=== PATIENT | male | born 1945 | race Caucasian/White ===

== ENCOUNTER → 2016-12-19 | Outpatient (CLI) | payer MEDICARE ==
[2016-12-19 12:19] LABS: ADD MANUAL DIFFER NO; BASO % 0.6 % (0.0-1.0); DIFF SLIDE NUMBER 200; EOS # 0.1 10^3/uL (0.0-0.50); EOS % 1.6 % (0.0-3.0); IMMATURE GRANULOCYTE % 0.4 % (0-0); LYMPH # 1.5 10^3/uL (1.5-4.5); LYMPH % 21.1 % (24.0-44.0); MEAN CORPUSCULAR HEMOGLOBIN 30.5 pg (27.0-33.0); MEAN CORPUSCULAR HGB CONC 33.8 g/dl (32.0-36.5); MEAN CORPUSCULAR VOLUME 90.3 fl (80.0-96.0); MONO # 0.6 10^3/uL (0.0-0.8); MONO % 8.4 % (0.0-5.0); NEUTROPHILS # 4.8 10^3/uL (1.8-7.7); NEUTROPHILS % 67.9 % (36.0-66.0); PLATELET COUNT, AUTOMATED 270 10^3/uL (150-450); RED CELL DISTRIBUTION WIDTH 13.1 % (11.5-14.5); WHITE BLOOD COUNT 7.1 10^3/uL (4.0-10.0)
[2016-12-19 12:49] LABS: ERYTHROCYTE SEDIMENTATION RATE 15 mm/hr (0-20)
[2016-12-19 13:32] LABS: VITAMIN B12 LEVEL 224 PG/ML (247-911)
[2016-12-19 13:33] LABS: FOLATE 16.9 NG/ML (>5.4)
[2016-12-19 15:48] LABS: ALBUMIN/GLOBULIN RATIO 1.29 (1.00-1.93); ALKALINE PHOSPHATASE 88 U/L (45-117); ALT/SGPT 22 U/L (12-78); ANION GAP 12 MEQ/L (8-16); AST/SGOT 9 U/L (15-37); BILIRUBIN,TOTAL 0.5 MG/DL (0.2-1.0); BLOOD UREA NITROGEN 15 MG/DL (7-18); CALCIUM LEVEL 9.2 MG/DL (8.8-10.2); CARBON DIOXIDE LEVEL 25 MEQ/L (21-32); CHLORIDE LEVEL 102 MEQ/L (98-107); CREATININE FOR GFR 1.07 MG/DL (0.70-1.30); GLOMERULAR FILTRATION RATE > 60.0 (>42); GLUCOSE, FASTING 82 MG/DL (83-110); POTASSIUM SERUM 4.1 MEQ/L (3.5-5.1); SODIUM LEVEL 139 MEQ/L (136-145); TOTAL PROTEIN 7.1 GM/DL (6.4-8.2)
[2016-12-20 08:58] LABS: ALBUMIN 4.15 GM/DL (3.29-5.55); ALBUMIN % 58.5 % (55.8-66.1)
[2016-12-20 08:59] LABS: GAMMA GLOBULIN % 10.3 % (11.1-18.8)
[2016-12-23 00:08] LABS: VITAMIN E LEVEL 10.2 mg/L (5.3-17.5)
== END ==
LOC: M LAB 10:35
PROVIDERS: ATTEND Psychiatry & Neurology Neurology
DX: G62.9 Polyneuropathy, unspecified (principal)

== ENCOUNTER 2017-03-27 07:44 | Day surgery (SDC) | payer MEDICARE ==
[2017-03-27] MEDS ORDERED: PROPOFOL 200 MG/20 ML VIAL As Ordered (08:00)
[2017-03-27] MEDS: NS 1,000 ML IV (08:00)
[2017-03-27] MEDS ORDERED: LIDOCAINE 2% INJ 100 MG/5 ML SDV (FOR ANES.) As Ordered (08:31)
[2017-03-27 11:40] LABS: BEDSIDE GLUCOSE 79 MG/DL (83-110)
== END 2017-03-27 09:14 | disposition home or self-care (01) ==
LOC: M OPP 07:44
DX: K44.9 Diaphragmatic hernia without obstruction or gangrene (principal); R12 Heartburn; E78.00 Pure hypercholesterolemia, unspecified; E11.9 Type 2 diabetes mellitus without complications; I10 Essential (primary) hypertension; F32.9 Major depressive disorder, single episode, unspecified; K21.9 Gastro-esophageal reflux disease without esophagitis; L40.9 Psoriasis, unspecified; Z83.71 Family history of colonic polyps; H40.9 Unspecified glaucoma; K59.00 Constipation, unspecified; D64.9 Anemia, unspecified; G47.30 Sleep apnea, unspecified; Z79.4 Long term (current) use of insulin; Z79.82 Long term (current) use of aspirin; Z79.899 Other long term (current) drug therapy; Z80.51 Family history of malignant neoplasm of kidney; Z95.1 Presence of aortocoronary bypass graft
CPT/HCPCS: 43235

== ENCOUNTER → 2017-04-23 | Outpatient (REF) | payer MEDICARE ==
[2017-04-23 18:57] LABS: VITAMIN B12 LEVEL 353 PG/ML
[2017-04-23 18:58] LABS: FOLATE 18.7 NG/ML
== END ==
LOC: M LAB REF 17:43
DX: K14.6 Glossodynia (principal)
CPT/HCPCS: 82746

== ENCOUNTER → 2018-05-22 | Outpatient (REF) | payer MEDICARE ==
[~2018-05-22] MED LIST: AMLO10TA5 PO; ASPI1TAB PO; ATOR80TA59 PO; BUPR150T5; CYAN1000VL IM; FERR325T3 PO; HYDR25TAB PO; INSULANT SC; INSURSD SC; IRBE300T10 PO; ISTA0.5S OU; METF10004 PO; MYLASUS16 PO; NEXI40CA PO; ROPI0.5T PO; STOO1CAP7 PO; TUMS500C PO; TYLE500T78 PO; XALA0.007 OU
[2018-05-22 11:29] LABS: FOLATE 14.5 NG/ML
== END ==
LOC: M LAB REF 10:56
PROVIDERS: ATTEND Family Medicine
DX: D64.9 Anemia, unspecified (principal)

== ENCOUNTER → 2018-06-06 | Outpatient (CLI) | payer MEDICARE ==
--- NOTE | 2018-06-06 17:07 | REP ---
COOKIE SWALLOW The procedure was performed under the direct supervision of Dr. ni. The procedure was performed with Sadia Salmeron from speech pathology present. 5 ml aliquots of thin, fruit, pudding, solid and a barium pill were administered. There is no evidence of penetration or aspiration. The detailed report of this examination will be provided by speech pathology. 0.8 minutes of fluoroscopy time was utilized for this procedure. Reviewed by LILLIAM Mcmillan 06/06/2018 04:50 P Electronically Signed by David Ni MD 06/06/2018 04:59 P
== END ==
LOC: M ST 12:31
PROVIDERS: ATTEND Physician Assistant Medical
DX: R13.19 Other dysphagia (principal)

== ENCOUNTER → 2018-06-12 | Outpatient (CLI) | payer MEDICARE ==
--- NOTE | 2018-06-12 11:14 | REP ---
Urinary tract sonogram: History: Urinary urgency. Comparison: No comparison study. Findings: Scanning at the level of the urinary bladder shows no abnormality. Pre void bladder volume is calculated 142 ml. A 2%, 2.8 ml postvoid residual is seen. Prostate gland is somewhat enlarged measuring 4.7 x 6.4 x 4.9 centimeters, calculated glandular volume 77 ml. Renal cortical echogenicity pattern is normal bilaterally and contours are smooth. There is no evidence of hydronephrosis, mass, or calculus in either kidney. There is some diffuse bilateral cortical thinning. The right kidney measures 10.7 x 6.2 x 6.5 cm. There is a cortical cyst in the lower pole right kidney 2.5 x 2.2 x 1.5 cm in diameter. A second cortical cyst is seen in the lower pole measuring 1.5 cm in greatest diameter. Left renal dimensions are 10.3 x 5.0 x 5.6 cm. Impression: Prostate enlargement. Cortical cysts right kidney. No hydronephrosis. Some diffuse cortical thinning. urinary tract sonography. Electronically Signed by López Gardner MD 06/12/2018 11:06 A
== END ==
LOC: M RAD 09:11
PROVIDERS: ATTEND Family Medicine
DX: N40.0 Benign prostatic hyperplasia without lower urinary tract symptoms (principal); N28.1 Cyst of kidney, acquired

== ENCOUNTER → 2018-06-20 | Outpatient (REF) | payer MEDICARE, BC ==
[~2018-06-20] MED LIST changes: -ASPI1TAB PO; +ASPI81TA26 PO
== END ==
LOC: M SMT 16:52
PROVIDERS: ATTEND Urology
DX: R39.15 Urgency of urination (principal)
CPT/HCPCS: 51798; 81002; 87086; G0463

== ENCOUNTER → 2018-08-29 | Outpatient (CLI) | payer MEDICARE, BC | LOC: M LAB 09:54 | PROVIDERS: ATTEND Urology | DX: R39.15 Urgency of urination (principal) ==

== ENCOUNTER → 2019-03-04 | Outpatient (CLI) | payer MEDICARE | LOC: M PLALAB 10:43 | PROVIDERS: ATTEND Nurse Practitioner Family | DX: R97.20 Elevated prostate specific antigen [PSA] (principal) ==

== ENCOUNTER → 2019-06-06 | Outpatient (CLI) | payer MEDICARE ==
[~2019-06-06] MED LIST changes: -IRBE300T10 PO; +IRBE300T7 PO; -ROPI0.5T PO; +ROPI0.5T3 PO
[2019-06-06 14:06] LABS: FOLATE > 24.0 NG/ML; VITAMIN B12 LEVEL 665 PG/ML
== END ==
LOC: M LAB 12:15
PROVIDERS: ATTEND Physician Assistant Medical
DX: D51.9 Vitamin B12 deficiency anemia, unspecified (principal)

== ENCOUNTER → 2019-09-09 | Outpatient (CLI) | payer MEDICARE ==
[~2019-09-09] MED LIST changes: +CVS250CA2 PO; -STOO1CAP7 PO
== END ==
LOC: M PLALAB 09:54
PROVIDERS: ATTEND Nurse Practitioner Family
DX: R97.20 Elevated prostate specific antigen [PSA] (principal)

== ENCOUNTER → 2020-02-16 | Outpatient (CLI) | payer MEDICARE ==
[~2020-02-16] MED LIST changes: -AMLO10TA5 PO; +AMLO1TAB25 PO
--- NOTE | 2020-02-16 08:42 | REP ---
INDICATION: HTN. Uncontrolled hypertension, multiple medications. COMPARISON: Comparison renal sonography June 12, 2018.. TECHNIQUE: Urinary tract sonography is performed. Renal artery Doppler assessment is carried out. FINDINGS: Trabeculation is noted in the bladder colvin. Prostate is mildly enlarged. No other bladder abnormality. There are 2 right renal cyst noted. The largest of these is in the midpole measuring 2.4 cm. The other cyst is in the lower pole on the right measuring 1.7 cm in greatest diameter. Renal cortical echogenicity pattern is normal and renal contours are smooth bilaterally. Right kidney measures 10.9 x 6.2 x 6.3 cm. Left renal dimensions are 11.1 x 4.5 x 5.5 cm. There is no evidence of hydronephrosis or mass on either side. Doppler measurements: Peak systolic flow velocity in the abdominal aorta at the level of the main renal arteries is normal measured at 101.7 centimeters/second. Peak systolic flow velocity in the left main renal artery is 214 centimeters/second and that in the right main renal artery is measured at 255 centimeters/second. These values are borderline elevated. Renal to aortic flow velocity ratios are 2.5 on the right and 2.1 on the left, ratio values are normal. Resistive indices and acceleration times are measured in the intralobar arteries of the upper, mid, and lower pole of each kidney. The resistive indices are somewhat elevated bilaterally.. IMPRESSION: Borderline elevation of bilateral renal artery velocities. Cannot exclude bilateral renal artery stenosis. Bilaterally elevated resistive indices. Small right renal cysts. Mildly enlarged prostate. <Electronically signed by Dilshad Gardner > 02/16/20 1518
== END ==
LOC: M RAD 07:15
PROVIDERS: ATTEND Physician Assistant
DX: I10 Essential (primary) hypertension (principal)

== ENCOUNTER → 2020-04-13 | Outpatient (CLI) | payer MEDICARE ==
[~2020-04-13] MED LIST changes: +CLOP75TA2 PO; +DEXTROSE 50% 50 ML SYRINGE As Ordered ONE; +HYDR-3490 PO; -HYDR25TAB PO; +ISOVUE-300 61% 50ML VIAL As Ordered ONE; +LIDOCAINE 1% MDV 20ML VIAL As Ordered ONE; +MIDAZOLAM INJ 2MG/2ML VIAL (J2250 PER 1MG) As Ordered ONE; +fentaNYL 100 MCG/2 ML INJECTION (J3010) As Ordered ONE
[2020-04-13 09:01] LABS: HEMATOCRIT 35.7 % (42.0-52.0); HEMOGLOBIN 11.7 g/dl (13.5-17.5); MEAN CORPUSCULAR HEMOGLOBIN 27.3 pg (27.0-33.0); MEAN CORPUSCULAR HGB CONC 32.8 g/dl (32.0-36.5); MEAN CORPUSCULAR VOLUME 83.4 fl (80.0-96.0); PLATELET COUNT, AUTOMATED 242 10^3/uL (150-450); RED BLOOD COUNT 4.28 10^6/uL (4.30-6.10); WHITE BLOOD COUNT 5.6 10^3/uL (4.0-10.0)
[2020-04-13 09:18] LABS: BLOOD UREA NITROGEN 20 MG/DL (7-18); CALCIUM LEVEL 9.5 MG/DL (8.8-10.2); CARBON DIOXIDE LEVEL 28 MEQ/L (21-32); CHLORIDE LEVEL 97 MEQ/L (98-107); GLOMERULAR FILTRATION RATE > 60.0 (>42); GLUCOSE, FASTING 65 MG/DL (70-100); POTASSIUM SERUM 4.1 MEQ/L (3.5-5.1); SODIUM LEVEL 133 MEQ/L (136-145)
--- NOTE | 2020-04-13 11:22 | ROOPDOC ---
[facility] Report Of Operation Report of Operation DATE OF PROCEDURE: 04/13/20 PREPROCEDURE DIAGNOSES: Hypertension with concern for renal artery stenosis POSTPROCEDURE DIAGNOSES: Same PROCEDURE: 1. Ultrasound-guided access right common femoral artery 2. Aortorenal arteriogram 3. Selection left and right renal arteries with arteriogram 4. Mynx closure right common femoral artery SURGEON: Sheila Kramer MD ANESTHESIA: Local anesthesia 4 mL lidocaine. Moderate intravenous conscious sedation was supervised by Dr. Kramer. The patient was independently monitored by registered nurse assigned to the Department of radiology using automated blood pressure, EKG, and pulse oximetry. The detailed sedation record is permanently stored in the hospital information system. The following is a brief sedation record: Start time 10:38, stop time 10:54, Versed 1 mg IV, fentanyl 25 g IV. CONTRAST: 15 mL Isovue-300 INDICATION FOR PROCEDURE: This is a very pleasant 75-year-old gentleman with significant hypertension on 3 antihypertensive medications who had elevated velocities on a renal ultrasound suggesting possibly greater than 60% stenosis in the bilateral renal arteries. Risks benefits and alternatives to renal arteriogram potential intervention were explained to the patient needs agreeable to proceed. Informed consent was obtained. INTERPRETATION: 1. There is no significant calcification ectasia or disease noted in the aorta near the renal arteries. There is good inflow into the left and right renal arteries with rapid filling of the kidneys bilaterally. There is no lagging of contrast or signs of stenosis at the origins of the left or right renal artery on initial aortorenal arteriogram. 2. With selection of the right renal artery, there is rapid flow with no signs of stenosis at the origin mid or distal renal artery. There is good flow into the kidney. There is not a 60% stenosis and this does not meet criteria for intervention. 3. With selection of the left renal artery, there is rapid flow with no signs of significant stenosis at the origin, mid, or distal renal artery. The proximal centimeter of the left renal artery does have some mild ectasia and plaque, but it is not flow limiting. There is good flow into the kidney. There is not a 60% stenosis and this does not meet criteria for intervention. REPORT OF OPERATION: Patient was brought to the angiographic suite in stable condition. His bilateral groins were prepped and draped in a sterile fashion. A timeout was performed. Sedation was administered without complication. Local anesthesia was administered to the skin and subcutaneous tissue over the right groin. A microneedle was used to access right common femoral artery under ultrasound guidance. A wire was passed through this access needle was removed. A 4 [place] Islander sheath was placed and flushed with saline. Glidewire and flushing catheter were advanced into the aorta at the level of the renal arteries. Aortorenal arteriogram was performed, please interpretation above. We then utilized the flushing catheter Glidewire to access the right renal artery and selective this, and an arteriogram was performed. Please interpretation above. We then replaced the wire and carefully removed the catheter and then use the catheter wire to selective left renal artery, and an arteriogram was performed. Please interpretation above. We then replaced the wire and carefully removed the catheter over the wire. No intervention was indicated at this time. There is not greater than 60% stenosis in either renal artery, and only mild ectasia was noted at the origins bilaterally. We then exchanged the sheath over the wire for a 5 [place] Islander sheath and a platelet Mynx closure device with good hemostasis. Pressure was held and sterile dressings were applied. The patient was then taken to recovery in stable condition. He tolerated the procedure and the sedation well. ESTIMATED BLOOD LOSS: Approximately 5 mL. COMPLICATIONS: None. PLAN: It is okay to resume home diet and medications. We will see the patient back in a week to check his groin access site. No strenuous exercise or lifting greater than 5 pounds for 48 hours. We appreciate the opportunity to participate in the care of this patient. SHEILA KRAMER MD Apr 13, 2020 11:22
[2020-04-13 15:00] VITALS: BP 140/70
== END ==
LOC: M IRPRO 08:22
PROVIDERS: ATTEND Surgery Vascular Surgery
DX: I10 Essential (primary) hypertension (principal); I70.203 Unspecified atherosclerosis of native arteries of extremities, bilateral legs; E11.9 Type 2 diabetes mellitus without complications; E78.5 Hyperlipidemia, unspecified; F32.9 Major depressive disorder, single episode, unspecified; G20 Parkinson's disease; H40.9 Unspecified glaucoma; K21.9 Gastro-esophageal reflux disease without esophagitis; L40.52 Psoriatic arthritis mutilans; Z79.4 Long term (current) use of insulin; Z79.82 Long term (current) use of aspirin; Z79.899 Other long term (current) drug therapy
CPT/HCPCS: 36252; 80048; 85027; 99152; C1760; C1769; C1887; C1894; J1644; J2250; J3010; Q9967

== ENCOUNTER → 2020-04-20 | Outpatient (CLI) | payer MEDICARE ==
[~2020-04-20] MED LIST changes: -CLOP75TA2 PO; -DEXTROSE 50% 50 ML SYRINGE As Ordered ONE; -HYDR-3490 PO; +HYDR25TAB PO; -ISOVUE-300 61% 50ML VIAL As Ordered ONE; -LIDOCAINE 1% MDV 20ML VIAL As Ordered ONE; -MIDAZOLAM INJ 2MG/2ML VIAL (J2250 PER 1MG) As Ordered ONE; -fentaNYL 100 MCG/2 ML INJECTION (J3010) As Ordered ONE
--- NOTE | 2020-04-20 16:29 | REP ---
INDICATION: ATHEROSCLEROSIS. COMPARISON: None. TECHNIQUE: Bilateral lower extremity arterial Doppler ultrasound. FINDINGS: The right lower extremity ankle brachial index is 1.4 on the left is measured at 0.8. Vessel wall calcification is observed. There is considerable discrepancy in cysts systolic blood pressure between the lower extremities, right higher than left. Biphasic arterial Doppler waveforms are noted throughout the right lower extremity. Monophasic waveforms are noted on the left at and below the distal superficial femoral artery. Heavily calcified vessels with moderate plaquing are observed bilaterally. There are multiple levels of mild luminal narrowing but no high-grade stenosis is seen. There was a short segment occlusion observed in the popliteal artery on the left with reconstitution of the distal popliteal and slow flow distally. Right lower extremity arterial Doppler velocity chart: Right WINDOW MAKER PSV 237 cm/S Right profundal 130 Proximal SFA 110 Mid SFA 160 Distal SFA 140 Popliteal 111 Proximal MODESTO 85 Tibial-peroneal trunk 107 Proximal DISTRIBUTION ENGINEER 62 Distal DISTRIBUTION ENGINEER 139 Distal MODESTO 91 Left lower extremity arterial Doppler velocity chart: Left WINDOW MAKER PSV 148 cm/S Profundal 118 Proximal SFA 84 Mid SFA 104 Distal SFA 52 Popliteal 66/occluded/25 Proximal MODESTO 24 Tibial-peroneal trunk 23 Proximal DISTRIBUTION ENGINEER 40 Distal DISTRIBUTION ENGINEER 57 Distal MDOESTO 55 IMPRESSION: Moderate bilateral diffuse plaquing. Short-segment occlusion left popliteal artery. Calcified vessels. Right lower extremity blood pressure is higher than left. <Electronically signed by Dilshad Gardner > 04/20/20 9514
== END ==
LOC: M RAD 12:56
PROVIDERS: ATTEND Surgery Vascular Surgery
DX: I70.203 Unspecified atherosclerosis of native arteries of extremities, bilateral legs (principal); I74.3 Embolism and thrombosis of arteries of the lower extremities

== ENCOUNTER → 2020-05-11 | Outpatient (CLI) | payer MEDICARE ==
[~2020-05-11] MED LIST changes: +ACETAMINOPHEN TAB 650MG DOSE (2X325MG) PO PRN; +CLOP75TA2 PO; +CLOPIDOGREL 75 MG TAB As Ordered ONE; +CLOPIDOGREL 75 MG TAB PO ONE; +HYDR-3490 PO; -HYDR25TAB PO; +ISOVUE-300 61% 50ML VIAL As Ordered ONE; +LIDOCAINE 1% MDV 20ML VIAL As Ordered ONE; +MIDAZOLAM INJ 2MG/2ML VIAL (J2250 PER 1MG) As Ordered ONE; +fentaNYL 100 MCG/2 ML INJECTION (J3010) As Ordered ONE
--- NOTE | 2020-05-11 11:58 | ROOPDOC ---
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 Ultrasound-guided access right common femoral artery 2. Aortoiliofemoral arteriogram 3. Selection left common femoral artery and superficial femoral artery with left lower extremity runoff 4. Selection left popliteal artery with tibial runoff 5. Angioplasty left proximal popliteal artery with 4 x 200 Gilbert balloon 6. Stenting left proximal popliteal artery with 5 x 100 Innova stent and post- dilation with 5 x 100 Gilbert balloon 7. Angioplasty left anterior tibial artery with 2.5 x 220 Wilfredo balloon 8. Completion arteriograms left lower extremity 9. Mynx closure right common femoral artery SURGEON: Sheila Kramer MD ANESTHESIA: Local anesthesia 10 mL lidocaine. Moderate intravenous conscious sedation was supervised by Dr. Kramer. The patient was independently monitored by registered nurse assigned to the Department of radiology using automated blood pressure, EKG, and pulse oximetry. The detailed sedation record is permanently stored in the hospital information system. The following is a brief sedation record: Start time 09:51, stop time 10:56, Versed 0.5 mg IV, fentanyl 50 g IV, heparin 4000 units IV. CONTRAST: 48 mL Isovue-300 INDICATION FOR PROCEDURE: This a very pleasant 75-year-old gentleman with atherosclerosis north fork arteries and worsening claudication in the left lower extremity. Risks benefits alternatives to an arteriogram of the left lower ex tremity and potential intervention were explained to the patient. He is agreeable to proceed. Informed consent was obtained. INTERPRETATION: 1. The distal aorta, bilateral common iliac arteries, hypogastric arteries, and external iliac arteries are widely patent. There is a lot of tortuosity in the left iliac system, but no flow-limiting stenoses. Both external iliac arteries runoff into calcified but widely patent common femoral arteries. 2. The left common femoral artery has good flow into the profunda and the proximal and mid SFA are widely patent. The distal SFA taper slightly and then there is a 2 cm occlusion in the proximal popliteal artery with reconstitution at the distal popliteal artery through collaterals. There is initially three- vessel runoff in the calf, but the peroneal artery tapers off towards the ankle and does not reconstitute. 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 The posterior tibial arteries the best runoff to the foot with excellent flow all the way to the plantar vessels. 3. After angioplasty of the proximal popliteal artery, there is improvement in flow but still significant stenoses, no extravasation noted. After stenting and post-dilating, we still have residual stenosis, as this lesion is resistant to stenting and angioplasty. A second high-pressure angioplasty was performed, and following this there is a marked improvement in flow but still about 20% stenosis at the area of focal occlusion. Overall, this dramatically improved outflow to the tibials. No dissection embolization or extravasation noted. 4. 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 There is no extravasation of contrast, a bit of contrast lingers in the AV system but can easily be massaged out or flushed. There are significant flow into microcirculation throughout the anterior compartment of the calf. There is improve flow through to the dorsal pedis artery and the foot. No dissection embolization or extravasation noted. REPORT OF OPERATION: Patient was brought to the angiographic suite in stable condition. His bilateral groins were prepped and draped in a sterile fashion. A timeout was performed. Sedation was administered without complication. Local anesthesia was administered to the skin and subcutaneous tissue over the right common femoral artery. A microneedle was used to access the artery under ultrasound guidance. A wire was passed through this access needle was removed. A 4 Kittitian sheath was placed and flushed with saline. A Glidewire and flushing catheter were advanced into the aorta. Aortoiliofemoral arteriogram was performed. Please interpretation above. We then went up and over the bifurcation with a Glidewire and flushing catheter and selected the left superficial femoral artery and common femoral artery and a runoff was performed, please interpretation above. We then advanced the wire down to the distal popliteal artery and exchange the sheath over the wire for a 6 x 90 cm destination sheath and flushed the sheath with saline. We then were able to cross through the occlusion in the popliteal artery and angioplasty with a 4 x 200 Gilbert balloon for three-minute inflations. Following this, there is still marked stenosis at the area of occlusion, but luminal flow was noted. No extravasation or embolization noted. After stenting with a 5 x 100 Innova stent in the proximal popliteal artery and post-dilating with a 5 x 100 Gilbert balloon, we still noted 30-40% stenosis at the area of occlusion and a second high-pressure angioplasty was performed. Following this, there is a marked improvement inflow and less than 20% residual stenosis but still not perfect. However, there is much more rapid flow to the tibials and the little bit of residual stenosis didn't appear flow-limiting. We then exchange the wire for an O18 Glidewire advantage and crossed through to the distal anterior tibial artery. A 2.5 x 220 Wilfredo balloon was advanced across artery to the ankle. Three-minute inflations performed. We then retracted the balloon to the proximal anterior tibial artery and another three-minute inflations was performed. 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 A second three-minute inflations was performed, and we saw a marked improvement inflow through to the dorsal pedis artery in the foot, and no contrast hanging up in the AV malformation no extravasation no dissection or embolization. We exchange the sheath over the wire for short 6 Kittitian sheath and flushed the sheath with saline. A Mynx closure device was deployed with good hemostasis. Pressure was held sterile dressings were applied. The patient was taken recovery in stable condition. He tolerated the procedure and the sedation well. ESTIMATED BLOOD LOSS: Approximately 5 mL. COMPLICATIONS: none. PLAN: We will start the patient on Plavix and he will take this for 60 days postop placement. It is okay to resume home diet and medications. We will see him back in a week to check his groin access site in his perfusion. I've encouraged him to take it easy over the next few days to minimize risk of bleeding and bruising around his access site. We appreciate the opportunity to participate in the care of this patient. SHEILA KRAMER MD May 11, 2020 11:58
[2020-05-11 15:15] VITALS: BP 173/64
== END ==
LOC: M IRPRO 08:22
PROVIDERS: ATTEND Surgery Vascular Surgery
DX: I70.212 Atherosclerosis of native arteries of extremities with intermittent claudication, left leg (principal); I70.1 Atherosclerosis of renal artery; E11.59 Type 2 diabetes mellitus with other circulatory complications; E78.5 Hyperlipidemia, unspecified; F32.9 Major depressive disorder, single episode, unspecified; G20 Parkinson's disease; H40.9 Unspecified glaucoma; I10 Essential (primary) hypertension; K21.9 Gastro-esophageal reflux disease without esophagitis; M06.9 Rheumatoid arthritis, unspecified; Z79.4 Long term (current) use of insulin; Z79.82 Long term (current) use of aspirin; Z79.890 Hormone replacement therapy; Z79.899 Other long term (current) drug therapy; Z96.1 Presence of intraocular lens
CPT/HCPCS: 37226; 37228; 75630; 75774; 99152; 99153; C1725; C1729; C1760; C1769; C1876; C1887; C1894; J1644; J2250; J3010; Q9967

== ENCOUNTER → 2020-06-16 | Outpatient (CLI) | payer MEDICARE ==
[~2020-06-16] MED LIST changes: -ACETAMINOPHEN TAB 650MG DOSE (2X325MG) PO PRN; -CLOPIDOGREL 75 MG TAB As Ordered ONE; -CLOPIDOGREL 75 MG TAB PO ONE; -ISOVUE-300 61% 50ML VIAL As Ordered ONE; -LIDOCAINE 1% MDV 20ML VIAL As Ordered ONE; -MIDAZOLAM INJ 2MG/2ML VIAL (J2250 PER 1MG) As Ordered ONE; -fentaNYL 100 MCG/2 ML INJECTION (J3010) As Ordered ONE
--- NOTE | 2020-06-16 16:48 | REP ---
INDICATION: ATH SANJEEV ART OF EXT MIKALA LEGS WITH INT SAMUEL. COMPARISON: None. 04/20/2020. TECHNIQUE: Duplex ultrasound of the lower extremity arteries bilaterally. FINDINGS: Right lower extremity: Brachial peak systole: 155 mmHg Dorsalis pedis peak systole: NA mmHg SHELL MAKER LOCKSTITCH peak systole: NA mmHg UMU: NA VOLUNTEER MANAGER: 176 velocity, 6 biphasic phasicity Profunda: 6153 velocity, the biphasic phasicity SFA prox: 114 velocity, biphasic phasicity SFA mid: 140 velocity, biphasic phasicity SFA dist: 144 velocity, biphasic phasicity Pop: 116 velocity, biphasic phasicity MODESTO prox: 127 velocity, biphasic phasicity Tib/P tr: 92 velocity, biphasic phasicity SHELL MAKER LOCKSTITCH pr: 78 velocity, biphasic phasicity SHELL MAKER LOCKSTITCH dst: 136 velocity, biphasic phasicity MODESTO dst: 122 velocity, biphasic phasicity Left lower extremity: Brachial peak systole: 150 mmHg Dorsalis pedis peak systole: 170 mmHg SHELL MAKER LOCKSTITCH peak systole: NA mmHg UMU: 1.1 VOLUNTEER MANAGER: 195 velocity, biphasic phasicity Profunda: 123 velocity, biphasic phasicity SFA prox: 114 velocity, biphasic phasicity SFA mid: 142 velocity, 2 biphasic phasicity SFA dist: 125 velocity, next biphasic phasicity Pop: 70 velocity, biphasic phasicity MODESTO prox: 106 velocity, biphasic phasicity Tib/P tr: 44 velocity, biphasic phasicity SHELL MAKER LOCKSTITCH pr: 77 velocity, biphasic phasicity SHELL MAKER LOCKSTITCH dst: 146 velocity, biphasic phasicity MODESTO dst: 102 velocity, biphasic phasicity IMPRESSION: Right lower extremity: There is moderate atheromatous plaque from the VOLUNTEER MANAGER to the ankle. There is heavy calcification of the vessels in the calf somewhat worse distally. There are elevated peak flow velocities, however no significant stenoses are identified. Left lower extremity: On the prior study there was occlusion of the popliteal artery. On the current study this occlusion is no longer present and there is a stent in the popliteal artery. Otherwise, there are multiple levels of increased flow velocity, however, there is no significant stenosis. <Electronically signed by David Tony > 06/16/20 [id number]
== END ==
LOC: M RAD 12:43
PROVIDERS: ATTEND Physician Assistant
DX: I70.213 Atherosclerosis of native arteries of extremities with intermittent claudication, bilateral legs (principal)

== ENCOUNTER → 2020-09-01 | Outpatient (REF) | payer MEDICARE | LOC: M PLALAB 13:07 | PROVIDERS: ATTEND Nurse Practitioner Family | DX: R97.20 Elevated prostate specific antigen [PSA] (principal) ==

== ENCOUNTER → 2020-10-13 | Outpatient (CLI) | payer MEDICARE ==
[2020-10-13 14:37] LABS: FOLATE > 24.0 NG/ML; VITAMIN B12 LEVEL 758 PG/ML
== END ==
LOC: M LAB 13:04
PROVIDERS: ATTEND Physician Assistant Medical
DX: D51.9 Vitamin B12 deficiency anemia, unspecified (principal)

== ENCOUNTER → 2020-10-28 | Outpatient (CLI) | payer MEDICARE ==
--- NOTE | 2020-10-28 10:52 | REP ---
INDICATION: ATHEROSCLEROSIS TECHNIQUE: Bilateral lower extremity arterial ultrasound and real-time sonographic Doppler evaluation FINDINGS: All numeric values represent peak systolic velocity in cm/SEC. On the right: The ankle brachial index was unobtainable. SMALL PRODUCTS II ASSEMBLER: 140 biphasic Profunda: 114 biphasic SFA proximal: 141 biphasic SFA mid: 129 biphasic SFA distal: 124 biphasic Popliteal: 109 biphasic MODESTO proximal: 94 biphasic Tibioperoneal trunk: 96 biphasic BONDED STRUCTURES REPAIRER proximal: 110 biphasic BONDED STRUCTURES REPAIRER distal: 141 biphasic MODESTO distal: 114 biphasic On the left: The ankle brachial index was unobtainable. SMALL PRODUCTS II ASSEMBLER: 120 triphasic Profunda: 133 triphasic SFA proximal: 100 triphasic SFA Mid: 76 triphasic SFA distal: 62 monophasic Popliteal: 60/132/630 monophasic MODESTO proximal: 35 monophasic Tibioperoneal trunk: 31 monophasic BONDED STRUCTURES REPAIRER proximal: 52 monophasic BONDED STRUCTURES REPAIRER distal: 86 monophasic MODESTO distal: 39 monophasic A moderate amount of plaque was seen on the right. Severe plaque was seen on the left with monophasic waveforms beginning at the SFA. Severe stenosis is noted at the left popliteal stent with a 4.8:1 ratio. When compared to the prior exam the degree of stenosis appears to have increased in the left leg. IMPRESSION: As above <Electronically signed by Vinod Killian > 10/28/20 1046
== END ==
LOC: M RAD 08:56
PROVIDERS: ATTEND Surgery Vascular Surgery
DX: I70.212 Atherosclerosis of native arteries of extremities with intermittent claudication, left leg (principal); Z95.828 Presence of other vascular implants and grafts

== ENCOUNTER → 2020-10-28 | Outpatient (REF) | payer MEDICARE | LOC: M LAB REF 09:24 | PROVIDERS: ATTEND Physician Assistant Medical | DX: R19.7 Diarrhea, unspecified (principal) ==

== ENCOUNTER → 2020-12-07 | Outpatient (CLI) | payer MEDICARE ==
[~2020-12-07] MED LIST changes: +CLOPIDOGREL 75 MG TAB As Ordered ONE; +ISOVUE-300 61% 50ML VIAL As Ordered ONE; +LIDOCAINE 1% MDV 20ML VIAL As Ordered ONE; +MIDAZOLAM INJ 2MG/2ML VIAL (J2250 PER 1MG) As Ordered ONE; +ONDANSETRON 4MG/2ML VIAL IV PRN; +PERCOCET 5MG/325MG TAB PO PRN; +fentaNYL 100 MCG/2 ML INJECTION (J3010) As Ordered ONE
[2020-12-07 09:33] LABS: HEMATOCRIT 37.8 % (42.0-52.0); MEAN CORPUSCULAR HEMOGLOBIN 30.2 pg (27.0-33.0); MEAN CORPUSCULAR HGB CONC 34.4 g/dl (32.0-36.5); MEAN CORPUSCULAR VOLUME 87.7 fl (80.0-96.0); PLATELET COUNT, AUTOMATED 256 10^3/uL (150-450); RED BLOOD COUNT 4.31 10^6/uL (4.30-6.10); WHITE BLOOD COUNT 6.7 10^3/uL (4.0-10.0)
[2020-12-07 09:48] LABS: INR 0.94
[2020-12-07 09:57] LABS: BLOOD UREA NITROGEN 21 MG/DL (7-18); CALCIUM LEVEL 9.5 MG/DL (8.8-10.2); CARBON DIOXIDE LEVEL 26 MEQ/L (21-32); CHLORIDE LEVEL 97 MEQ/L (98-107); CREATININE FOR GFR 1.01 MG/DL (0.70-1.30); GLOMERULAR FILTRATION RATE > 60.0 (>42); GLUCOSE, FASTING 114 MG/DL (70-100); POTASSIUM SERUM 4.3 MEQ/L (3.5-5.1); SODIUM LEVEL 131 MEQ/L (136-145)
[2020-12-07] MEDS: CLOPIDOGREL 75 MG TAB PO ONE (12:37)
[2020-12-07 13:20] VITALS: BP 156/70
--- NOTE | 2020-12-07 15:16 | ROOPDOC ---
[facility] Report Of Operation Report of Operation DATE OF PROCEDURE: 12/07/20 PREPROCEDURE DIAGNOSES: Left leg ischemia POSTPROCEDURE DIAGNOSES: Left leg ischemia PROCEDURE PERFORMED: 1. Left SFA and popliteal artery atherectomy and Angioplasty with Drug Coated Balloon 2. Selective Catheterization, initial, 3rd order 3. Left leg Angiogram 4. Ultrasound Guided Percutaneous Entry SURGEON: Norberto Ryan MD ANESTHESIA: Local and sedation ESTIMATED BLOOD LOSS: Approximately 5 mL. 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 Excellent flow to foot after procedure. DESCRIPTION OF PROCEDURE: Patient was brought to the IR suite and placed on the IR table in supine position. No recent angiographic images of the aorta or extremity were performed and therefore a diagnostic angiogram was performed prior to any endovascular intervention. After anesthesia was administered, the patient's groins were prepped and draped in standard surgical fashion. Under ultrasound guidance, percutaneous entry into the right common femoral artery was performed with a micropuncture needle. Over guidewire exchange a microsheath was inserted and a 0.035" Glidewire was passed into the aorta. The microsheath was then exchanged for 5 Fr sheath and a flush catheter was passed through the sheath and into the aorta. An aortogram was performed and revealed patent bilateral renal arteries, normal sized aorta and patent bilateral iliac artery runoff. The aortic bifurcation was engaged and the Glidewire and catheter were passed to the distal left external iliac artery. Serial angiography of the leg was then performed and revealed a patent common femoral artery, profunda femoris artery and proximal superficial femoral artery. 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 The distal landing zone of the stent was at the level of the Tibial Plateau. Reconstitution of the distal SFA/proximal Popliteal occurred near the distal edge of the stent. Below the knee, there was a 3 vessel runoff to the foot via the posterior tibial artery being the main outflow vessel. The peroneal artery anterior tibial artery were patent, however the vessels became progressively smaller by the time they reached the ankle. The patient was administered a bolus of IV Heparin and additional doses were given throughout the case to ensure adequate anticoagulation. Over guidewire exchange and with fluoroscopic guidance the short 5 Fr sheath was replaced with a long 6 Fr destination sheath and crossing catheter. Using the crossing catheter and guidewire, the SFA total occlusion was traversed and the wire and catheter were placed in the tibioperoneal trunk. The guidewire was exchanged for an 0.014" wire and placed in the same location. The guiding catheter was then removed and exchanged for a Medtronic atherectomy device. Atherectomy in all four quadrants of the in-stent restenosis of the distal SFA and proximal Popliteal artery was performed. Repeat angiography revealed moderate improvement but with some persistent disease. The 0.014" wire was exchanged for the 0.035 Glidewire and angioplasty of the entire stented SFA was performed with a 5mm x 150mm Medtronic Drug Coated Balloon. Post-angioplasty angiography revealed resolution of the stenotic segment and brisk flow throughout the stent and into the tibial vessels and into the foot. No further intervention was performed. Over fluoroscopic guidance, the sheath was retracted over the aortic bifurcation and removed. A Perclose closure device was then used to close the puncture site and a sterile dressing was then placed. NORBERTO RYAN MD Dec 07, 2020 15:16
== END ==
LOC: M IRPRO 08:24
PROVIDERS: ATTEND Surgery Vascular Surgery
DX: I70.222 Atherosclerosis of native arteries of extremities with rest pain, left leg (principal); I70.92 Chronic total occlusion of artery of the extremities; E11.9 Type 2 diabetes mellitus without complications; E78.5 Hyperlipidemia, unspecified; F32.9 Major depressive disorder, single episode, unspecified; G20 Parkinson's disease; G47.33 Obstructive sleep apnea (adult) (pediatric); H40.9 Unspecified glaucoma; I10 Essential (primary) hypertension; K21.9 Gastro-esophageal reflux disease without esophagitis; L40.59 Other psoriatic arthropathy; Z79.4 Long term (current) use of insulin; Z79.899 Other long term (current) drug therapy
CPT/HCPCS: 37225; 75630; 75774; 80048; 85027; 85610; 99152; 99153; C1714; C1760; C1769; C1887; C1894; C2623; J1644; J2250; J3010; Q9967

== ENCOUNTER → 2021-02-12 | Outpatient (CLI) | payer MEDICARE ==
[~2021-02-12] MED LIST changes: -CLOPIDOGREL 75 MG TAB As Ordered ONE; +DOXA1TAB40 PO; -ISOVUE-300 61% 50ML VIAL As Ordered ONE; -LIDOCAINE 1% MDV 20ML VIAL As Ordered ONE; +MAGN1CAP PO; -MIDAZOLAM INJ 2MG/2ML VIAL (J2250 PER 1MG) As Ordered ONE; -ONDANSETRON 4MG/2ML VIAL IV PRN; +OXYB5TAB10 PO; +PARO20TA3 PO; -PERCOCET 5MG/325MG TAB PO PRN; +SPIR-10 PO; +VITMTA PO; -fentaNYL 100 MCG/2 ML INJECTION (J3010) As Ordered ONE
== END ==
LOC: M LABSMTC 11:20
PROVIDERS: ATTEND Anesthesiology
DX: Z01.812 Encounter for preprocedural laboratory examination (principal); Z20.822 Contact with and (suspected) exposure to COVID-19

== ENCOUNTER 2021-02-17 09:20 | Day surgery (SDC) | payer MEDICARE ==
[~2021-02-17] VITALS: Ht 162.6 cm; Wt 95.2 kg
[~2021-02-17 09:20] MED LIST changes: +LIDOCAINE 2% 100MG/5ML SDV (FOR ANES.) As Ordered ONE; +NS 1,000 ML IV ONE; +propofoL 200 MG/20 ML VIAL As Ordered ONE
--- OUTSIDE RECORDS SUMMARY | 2021-02-17 09:28 | CCD | Continuity of Care Document ---
Author Author Venu MAR P.A.-C Organization Unknown Address [address] [place] [address] Phone [phone] Care Team Providers Care Gyn Physician Name Role Phone Alonzo Jeffers M.D. AUTM [phone] Problems Active Problems Provider Date Shuffling gait Sue Castano M.D. Onset: 12/19/2016 Social History Type Date Description Comments Sex Unknown Tobacco Use Start: Unknown Patient has never smoked Allergies and adverse reactions Description No Known Drug Allergies Medications Active Medications SIG Qnty Indications Ordering Provide r Date Ropinirole HCL 2mg Tablets 1 by mouth three times a day 270tabs G20 Geovanni Milan M.D. 03/07/20 19 Cyanocobalamin 1000mcg/ML Solution 1 intramuscular every month 12units Sue Castano M.D. 08/2016 Immunizations Description No Information Available Vital Signs Date Vital Result Comment 10/13/2020 6:34am BP Systolic 122 mmHg BP Diastolic 70 mmHg Heart Rate 60 /min Respiratory Rate 16 /min 07/13/2020 6:46am BP Systolic 120 mmHg BP Diastolic 60 mmHg Heart Rate 60 /min Respiratory Rate 20 /min Results Test Acquired Date Facility Test Result H/L Range Note Vitamin B12 & Folate 10/13/2020 [facility] Vitamin B12 Level 758 pg/mL Normal 1 Folate > 24.0 NG/ML Normal 2 1 VITAMIN B12 NORMAL RANGE NORMAL 247 - 911 PG/ML INDETERMINATE 211 - 246 PG/ML DEFICIENT LESS THAN 211 PG/ML 2 FOLATE NORMAL RANGE NORMAL GREATER THAN 5.4 NG/ML INDETERMINATE 3.4-5.4 NG/ML DEFICIENT LESS THAN 3.4 NG/ML Procedures Date Code Description Status 01/14/2021 29400 Office/Outpatient Established Mo d MDM 30-39 Min Completed 10/13/2020 94140 Office/Outpatient Established Mo d MDM 30-39 Min Completed 07/31/2020 40006 MRI Brain W/O Contrast Completed 07/31/2020 47852 MRI Brain W/O Contrast Completed Medical Devices Description No Information Available Encounters Type Date Location Provider Dx Diagnosis Office Visit 01/14/2021 11:45a Main office - [place] Emily Callahan.A.-C. 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 G20 Parkinson's disease R26.89 Other abnormalities of gait and mobility M54.5 Low back pain G63 Polyneuropathy in diseases c lassified elsewhere M62.831 Muscle spasm of calf D51.8 Other vitamin B12 deficiency anemias I73.9 Peripheral vascular disease, unspecified Assessments Date Code Description Provider 01/14/2021 I73.9 Peripheral vascular disease, uns pecified Emily Ambrocio.A.-C. 01/14/2021 G20 Parkinson's disease Jacob CallahanA.-CMinh 01/14/2021 R26.89 Other abnormalities of gait and mobility Emily Ambrocio.A.-C. 01/14/2021 M54.50 Low back pain, unspecified Emily Ambrocio.A.-C. 01/14/2021 M62.831 Muscle spasm of calf Emily Branch.A.-CMinh 01/14/2021 G63 Polyneuropathy in diseases class ified elsewhere Emily Ambrocio.A.-C. 01/14/2021 D51.8 Other vitamin B12 deficiency ane mias Emily Ambrocio.A.-C. 10/13/2020 G20 Parkinson's disease Jacob CallahanAMinh-CMinh 10/13/2020 R26.89 Other abnormalities of gait and mobility Jacob AmbrocioAMinh-CMinh 10/13/2020 M54.5 Low back pain Jacob AmbrocioAMinh-CMinh 10/13/2020 G63 Polyneuropathy in diseases class ified elsewhere Jacob AmbrocioAPinedaCMinh 10/13/2020 M62.831 Muscle spasm of calf Niko BranchCMinh 10/13/2020 D51.8 Other vitamin B12 deficiency ane mias Diane Ambrocio-CMinh 10/13/2020 I73.9 Peripheral vascular disease, uns pecified Emily Ambrocio.A.-CMinh 07/31/2020 G20 Parkinson's disease Abdirahman Castano M.D. 07/31/2020 G20 Parkinson's disease MRI 07/31/2020 R26.81 Unsteadiness on feet Abdirahman Castano M.D. 07/31/2020 R26.81 Unsteadiness on feet MRI 07/31/2020 R47.89 Other speech disturbances Abdirahman Castano M.D. 07/31/2020 R47.89 Other speech disturbances MRI Plan of Treatment Future Appointment(s):* 07/15/2021 11:15 am - Randee Mar P.A.-C. at [facility] 01/14/2021 - Randee Mar P.A.-C.* I73.9 Peripheral vascular disease, unspecified * G20 Parkinson's disease * R26.89 Other abnormalities of gait and mobility * M54.50 Low back pain, unspecified * M62.831 Muscle spasm of calf * G63 Polyneuropathy in diseases classified elsewhere * D51.8 Other vitamin B12 deficiency anemias Functional Status Description No Information Available Mental Status Description No Information Available Referrals Refer to Reason for Referral Status Appt Date Abdirahman Castano M.D. Created [facility] [address] [place] [address] [phone]
--- OUTSIDE RECORDS SUMMARY | 2021-02-17 09:28 | CCD | Continuity of Care Document ---
Author Author Venu MAR P.A.-C Organization Unknown Address [address] [place] [address] Phone [phone] Care Team Providers Care Rn Case Management Name Role Phone lAonzo Jeffers M.D. AUTM [phone] Problems Active Problems Provider Date Shuffling gait [...] Range Note Vitamin B12 & Folate 10/13/2020 [facility] Vitamin B12 Level 758 pg/mL Normal 1 Folate > 24.0 NG/ML Normal 2 1 VITAMIN B12 NORMAL RANGE NORMAL 247 - 911 PG/ML INDETERMINATE 211 - 246 PG/ML DEFICIENT LESS THAN 211 PG/ML 2 FOLATE NORMAL RANGE NORMAL GREATER THAN 5.4 NG/ML INDETERMINATE 3.4-5.4 NG/ML DEFICIENT LESS THAN 3.4 NG/ML Procedures Date Code Description Status 01/14/2021 84587 Office/Outpatient Established Mo d MDM 30-39 Min Completed 10/13/2020 65117 Office/Outpatient Established Mo d MDM 30-39 Min Completed 07/31/2020 13290 MRI Brain W/O Contrast Completed 07/31/2020 11036 MRI Brain W/O Contrast Completed Medical Devices Description No Information Available Encounters Type Date Location Provider Dx Diagnosis Office Visit 01/14/2021 11:45a Main office - [place] Emily Callahan.A.-C. I73.9 Peripheral vascular disease, unspecified G20 Parkinson's disease R26.89 Other abnormalities of gait and mobility M54.50 Low back pain, unspecified M62.831 Muscle spasm of calf G63 Polyneuropathy in diseases c lassified elsewhere D51.8 Other vitamin B12 deficiency anemias Office Visit 10/13/2020 9:00a Main office - [place] Emily Callahan.A.-C. G20 Parkinson's disease R26.89 Other [...] 11:15 am - Randee Mar P.A.-C. at [facility] 01/14/2021 - Randee Mar P.A.-C.* I73.9 Peripheral [...] Status Appt Date Abdirahman Castano M.D. Created [facility] [address] [place] [address] [phone]
--- OUTSIDE RECORDS SUMMARY | 2021-02-17 09:28 | CCD | Continuity of Care Document ---
Author Author Venu CHRISTIANSON N.P Minh Organization Unknown Address [address] [place] [address] Phone [phone] Care Team Providers Care Production Welding Supervisor Name Role Phone Alonzo Jeffers M.D. AUTM [phone] Wade Hurst AUTM [phone] AUTM Unavailable Problems Active Problems Provider Date Essential hypertension Fior Lowe, A.N.PMinh Onset: 07/2012 Obstructive sleep apnea syndrome Fior Lowe, A.N.PMinh Onset: 05/26/2010 Atherosclerosis of arteries of the extremities Leigh Ann Paige MD Onset: 12/23/2020 Diarrhea Leigh Ann Paige MD Onset: 2020 Idiopathic osteoarthritis Leigh Ann Paige MD Onset: 12/23/2020 Morbid obesity Leigh Ann Paige MD Onset: 2020 Atherosclerosis of coronary artery without angina pect lesli Leigh Ann Paige MD Onset: 12/23/2020 Social History Type Date Description Comments Sex Unknown ETOH Use Denies alcohol use Tobacco Use Reviewed: 01/02/19 Non Smoker Recreational Drug Use Denies Drug Use Smoking Status Reviewed: 06/28/20 Non Smoker Allergies and adverse reactions Description No Known Drug Allergies Medications Active Medications SIG Qnty Indications Ordering Provide r Date Suprep Bowel Prep Kit 17.5-3.13-1.6GM/177ML Solution take per doctor's bowel prep instructions. 354ml Bakari Valles JR, MD 12/27/2020 Clopidogrel Bisulfate 75mg Tablets 1 tab by mouth every day 90tabs Jose Ryan MD 10/14/2020 Nystatin-Triamcinolone 760041-2.1Unit/GM-% Cream twice a day Unknown Oxybutynin Chloride ER 5mg Tablets ER 24HR 1 by mouth every day Unknown 000 Cyanocobalamin 1000mcg/ML Solution 1 time per month Unknown Spironolactone 25mg Tablets 1 every day Unknown Krill Oil [place]-3 500mg Capsules 1 every day Unknown Latanoprost 0.005% Solution Instill 1 Drop Into Both Eyes AT Bedtime as Directed Unknown Fluorouracil 5% Cream applied twice a day Unknown Triamcinolone Acetonide 0.1% Cream apply to affected twice a day M-F Unknown Ketoconazole 2% Shampoo bid Unknown Doxazosin Mesylate 2mg Tablets 1 tab po bid Unknown Chlorthalidone 25mg Tablets 1 tab po qd Unknown Iron 325(65Fe) mg Tablets take 1 tablet by mouth daily. Unknown Magnesium 500mg Tablets 2 tab po qhs Unknown Multivitamin Adult Tablets 1 by mouth every day Unknown CPAP 12cm marras Unknown Paroxetine HCL 20mg Tablets 1 by mouth every day Unknown Vitamin D High Potency 1000Unit Ca psules 1 by mouth every day Unknown Nexium 40mg Capsules DR 1 by mouth bid 30caps Unknown Humulin R 100Unit/ML Solution sliding scale Unknown Avapro 300mg Tablets 1 by mouth every day Unknown Aspir-[address] 1 by mouth every day 30tabs Unknown Ropinirole HCL 1mg Tablets 2 tabs po tid Unknown Istalol 0.5% Solution one drop each eye in the Am Unknown Lantus 100Unit/ML Solution 30 units every day Unknown Stool Softener 100mg Tablets 1 by mouth qd Unknown Amlodipine Besylate 10mg Tablets 1 by mouth every day Unknown Atorvastatin Calcium 80mg Tablets daily Unknown Metformin HCL 1000mg Tablets 1 tab by mouth once a day Unknown History Medications Clopidogrel Bisulfate 75mg Tablets 1 by mouth every day Jose Hunter MD 10/14/2020 - Immunizations CPT Code Status Date Vaccine Lot # [id number] Given 12/21/2010 Influenza Vaccine 3 Years Of Age Or Older (Flulaval) 99833 Given 02/11/2009 Influenza Vaccine 13106 Given 12/27/2007 Influenza Vaccine Vital Signs Date Vital Result Comment 01/13/2021 2:35pm BP Systolic 140 mmHg BP Diastolic 60 mmHg Heart Rate 59 /min O2 % BldC Oximetry 98 % Height 65 inches 5'5" Weight 211.00 lb BMI (Body Mass Index) 35.1 kg/m2 [place] Body Weight 136 lb Weight 95.710 kg BSA (Body Surface Area) 2.02 m2 12/23/2020 3:10pm BP Systolic 160 mmHg BP Diastolic 71 mmHg Body Temperature 98.4 F Height 65 inches 5'5" Weight 208.00 lb BMI (Body Mass Index) 34.6 kg/m2 [place] Body Weight 136 lb Weight 94.349 kg BSA (Body Surface Area) 2.01 m2 Results Test Acquired Date Facility Test Result H/L Range Note Complete Blood Count 12/07/2020 [facility] Main Lab [address] [place], [place] [id number] [phone] White Blood Count 6.7 10 Normal 4.0-10.0 Red Blood Count 4.31 10 Normal 4.30-6.10 Hemoglobin 13.0 g/dL Low 13.5-17.5 Hematocrit 37.8 % Low 42.0-52.0 Mean Corpuscular Volume 87.7 fl Normal 80.0-96.0 Mean Corpuscular Hemoglobin 30.2 pg Normal 27.0-33.0 Mean Corpuscular HGB Conc 34.4 g/dL Normal 32.0-36.5 Red Cell Distribution Width 12.9 % Normal 11.5-14.5 Platelet Count, Automated 256 10 Normal 150-450 Nucleated Red Blood Cell % 0.0 % Normal 0-0 Prothrombin Time/Inr 12/07/2020 [facility] Main Lab [address] [place] [address] [phone] Prothrombin Time 13.0 seconds Normal 12.7-14.5 Inr 0.94 Normal 1 Basic Metabolic Profile 12/07/2020 [facility] Main Lab [address] [place] [address] [phone] Glucose, Fasting 114 mg/dL High 70-100 Blood Urea Nitrogen 21 mg/dL High 7-18 Creatinine For GFR 1.01 mg/dL Normal 0.70-1.30 Glomerular Filtration Rate > 60.0 Normal >42 2 Sodium Level 131 mEq/L Low 136-145 Potassium Serum 4.3 mEq/L Normal 3.5-5.1 Chloride Level 97 mEq/L Low 98-107 Carbon Dioxide Level 26 mEq/L Normal 21-32 Anion Gap 8 mEq/L Normal 8-16 Calcium Level 9.5 mg/dL Normal 8.8-10.2 1 THERAPUTIC HUMAN INR VALUES INDICATIONS NORMAL RANGES PROPHYLAXIS/TREATMENT OF: VENOUS THROMBOSIS 2.0-3.0 PULMONARY EMBOLISM 2.0-3.0 PREVENTION OF SYSTEMIC EMBOLISM FROM: TISSUE HEART VALVES 2.0-3.0 ACUTE MYOCARDIAL INFARCTION 2.0-3.0 VALVULAR HEART DISEASE 2.0-3.0 ATRIAL FIBRILLATION 2.0-3.0 MECHANICAL VALVES(HIGH RISK) 2.5-3.5 RECURRENT MYOCARDIAL INFARCTION 2.5-3.5 2 Units are mL/min/1.73 m2 Chronic Kidney Disease Staging per NKF: Stage I & II GFR >=60 Normal to Mildly Decreased Stage III GFR 30-59 Moderately Decreased Stage IV GFR 15-29 Severely Decreased Stage V GFR <15 Very Little GFR Left ESRD GFR <15 on ARTIST'S REPRESENTATIVE Procedures Date Code Description Status 12/23/2020 96043 Office/Outpatient Established Mo d MDM 30-39 Min Completed 12/07/2020 46747 Revascularization,Endovascular W /Atherectomy, Inc Angioplasty Completed 11/15/2020 10406 Office/Outpatient Established Mo d MDM 30-39 Min Completed 11/15/2020 05497 Office/Outpatient Established Lo w MDM 20-29 Min Completed 10/14/2020 38075 Office/Outpatient Established Lo w MDM 20-29 Min Completed Medical Devices Description No Information Available Encounters Type Date Location Provider Dx Diagnosis Office Visit 12/23/2020 3:15p [facility] Rat estela Paige MD I70.202 Unsp athscl [place] arteries of extremities, left leg R19.7 Diarrhea, unspecified 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 M19.09 Primary osteoarthritis, othe r specified site E66.01 Morbid (severe) obesity due to excess calories Office Visit 11/15/2020 1:15p [facility] ALEXIA Barahona R19.7 Diarrhea, unspecified K57.30 Dvrtclos of lg int w/o perfo ration or abscess w/o bleeding K64.9 Unspecified hemorrhoids I70.213 Athscl [place] arteries of ex trm w intrmt elbert, bi legs Office Visit 11/15/2020 1:45p [facility] Jose valiente MD I70.202 Unsp athscl [place] arteries of extremiti es, left leg Office Visit 10/14/2020 11:00a [facility] Jose valiente MD I70.212 Athscl [place] arteries of extrm w intrmt elbert, left leg Assessments Date Code Description Provider 01/13/2021 G47.33 Obstructive sleep apnea (adult) (pediatric) Kelly Christianson, N.P. 12/23/2020 I70.202 Unspecified atherosc lerosis of [place] arteries of extremities, left leg Leigh Ann Paige MD 12/23/2020 R19.7 Diarrhea, unspecified Leigh Ann Paige MD 12/23/2020 I25.10 Atherosclerotic hear t disease of [place] coronary artery without angina pectoris Leigh Ann Paige MD 12/23/2020 M19.09 Primary osteoarthritis, other sp ecified site Leigh Ann Paige MD 12/23/2020 E66.01 Morbid (severe) obesity due to e xcess calories Leigh Ann Paige MD 12/07/2020 T82.856A Stenosis of peripheral vascular stent, initial encounter Jose Ryan MD 11/15/2020 I70.202 Unspecified atherosc lerosis of [place] arteries of extremities, left leg Jose Ryan MD 11/15/2020 R19.7 Diarrhea, unspecified ALEXIA Pollack 11/15/2020 K57.30 Diverticulosis of la rge intestine without perforation or abscess without bleeding ALEXIA Cole 11/15/2020 K64.9 Unspecified hemorrhoids ALEXIA Cisneros 11/15/2020 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, bilateral legs ALEXIA Cole 10/14/2020 I70.212 Atherosclerosis of n ative arteries of extremities with intermittent claudication, left leg Jose MD [place] Plan of Treatment Future Appointment(s):* 01/16/2022 10:15 am - Kelly Christianson NTamie at [facility]Th[facility]acic * 03/03/2021 10:00 am - ALEXIA Cole at [facility] * 02/17/2021 11:45 am - Bakari Valles JR, MD at [facility] 01/13/2021 - Kelly Christianson N.P.* G47.33 Obstructive sleep apnea (adult) (pediatric) * * New Orders:* CPAP/BIPAP Supply, Ordered: 01/13/21 * CPAP/BIPAP mask refit, Ordered: 01/13/21 * Comments:* 1. No changes were made to the CPAP pressure at today's visit. 2. The patient is aware to call with any problems related to CPAP use, snoring through the mask or return of daytime sleepiness. 3. Per the patient's request, a CPAP supply order has been sent to the [facility]. * Follow up:* 1. Follow up in one year to reassess CPAP compliance or sooner should problems develop. Functional Status Description No Information Available Mental Status Description No Information Available Referrals Refer to Reason for Referral Status Appt Date Bakari Valles M.D. COLONOSCOPY Scheduled 11/09/2020 [facility] [address] [id number] [phone]
--- OUTSIDE RECORDS SUMMARY | 2021-02-17 09:28 | CCD | Continuity of Care Document ---
Author Author Venu CHRISTIANSON N.P Minh Organization Unknown Address [address] [place] [address] Phone [phone] Care Team Providers Care Pattern Perforating Machine Operator Name Role Phone Alonzo Jeffers M.D. AUTM [phone] Wade Hurst AUTM [phone] AUTM Unavailable Problems Active Problems Provider Date [...] day 90tabs Jose Ryan MD 10/14/2020 Nystatin-Triamcinolone 507435-5.1Unit/GM-% Cream twice a day Unknown Oxybutynin Chloride ER 5mg Tablets ER 24HR 1 by mouth every day Unknown 000 Cyanocobalamin 1000mcg/ML Solution 1 time per month Unknown Spironolactone 25mg Tablets 1 every day Unknown Krill Oil Purchase-3 500mg Capsules 1 every day Unknown Latanoprost [...] 3 Years Of Age Or Older (Flulaval) 40724 Given 02/11/2009 Influenza Vaccine 09091 Given 12/27/2007 Influenza Vaccine Vital Signs Date Vital Result Comment 01/13/2021 2:35pm BP Systolic 140 mmHg BP Diastolic 60 mmHg Heart Rate 59 /min O2 % BldC Oximetry 98 % Height 65 inches 5'5" Weight 211.00 lb BMI (Body Mass Index) 35.1 kg/m2 [place] Body Weight 136 lb Weight 95.710 kg BSA (Body Surface Area) 2.02 m2 12/23/2020 3:10pm BP Systolic 160 mmHg BP Diastolic 71 mmHg Body Temperature 98.4 F Height 65 inches 5'5" Weight 208.00 lb BMI (Body Mass Index) 34.6 kg/m2 [place] Body Weight 136 lb Weight 94.349 kg BSA (Body Surface Area) 2.01 m2 Results Test Acquired Date Facility Test Result H/L Range Note Complete Blood Count 12/07/2020 [facility] Main Lab [address] [place], [place] [id number] [phone] White Blood Count 6.7 10 Normal 4.0-10.0 [...] 0.0 % Normal 0-0 Prothrombin Time/Inr 12/07/2020 [facility] enter Main Lab [address] [place] [address] [phone] Prothrombin Time 13.0 seconds Normal 12.7-14.5 Inr 0.94 Normal 1 Basic Metabolic Profile 12/07/2020 [facility] [place] [facility] Main Lab [address] [place] [address] [phone] Glucose, Fasting 114 mg/dL High 70-100 Blood [...] Little GFR Left ESRD GFR <15 on PLANT TECHNICAL SPECIALIST Procedures Date Code Description Status 12/23/2020 03312 Office/Outpatient Established Mo d MDM 30-39 Min Completed 12/07/2020 88727 Revascularization,Endovascular W /Atherectomy, Inc Angioplasty Completed 11/15/2020 33520 Office/Outpatient Established Mo d MDM 30-39 Min Completed 11/15/2020 99279 Office/Outpatient Established Lo w MDM 20-29 Min Completed 10/14/2020 32236 Office/Outpatient Established Lo w MDM 20-29 Min Completed Medical Devices Description No Information Available Encounters Type Date Location Provider Dx Diagnosis Office Visit 12/23/2020 3:15p [facility] Rat estela Paige MD I70.202 Unsp athscl [place] arteries of extremities, left leg R19.7 Diarrhea, unspecified 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 ALEXIA Barahona R19.7 Diarrhea, unspecified K57.30 Dvrtclos of lg int w/o perfo ration or abscess w/o bleeding K64.9 Unspecified hemorrhoids I70.213 Athscl [place] arteries of ex trm w intrmt elbert, bi legs Office Visit 11/15/2020 1:45p [facility] Jose valiente MD I70.202 Unsp athscl [place] arteries of extremiti es, left leg Office Visit 10/14/2020 11:00a [facility] Jose valiente MD I70.212 Athscl [place] arteries of extrm w intrmt elbert, left leg Assessments Date Code Description Provider 01/13/2021 G47.33 Obstructive sleep apnea (adult) (pediatric) Kelly Christianson, N.P. 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 01/13/2021 - Kelly Christianson N.P.* [...] supply order has been sent to the [facility]. * Follow up:* 1. Follow up in one year to reassess CPAP compliance or sooner should problems develop. Functional Status Description No Information Available Mental Status Description No Information Available Referrals Refer to Reason for Referral Status Appt Date Bakari Valles M.D. COLONOSCOPY Scheduled 11/09/2020 [facility] [address] [id number] [phone]
--- OUTSIDE RECORDS SUMMARY | 2021-02-17 09:28 | CCD | Continuity of Care Document ---
Author Author Venu KIRBY M.D. Organization Unknown Address [address] [facility] [address] [place] [address] Phone [phone] Care Team Providers Care Personal Lines Account Executive Name Role Phone Alonzo Kirby MD AUTM [phone] Gabo Briones O.D. 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 (Rx by neurology, bowen meraz) 90tabs Alonzo Kirby M.D. 12/05/2018 Freestyle Lite Test Strips test twice a day E11.9 100units Alonzo Kirby M.D. 05/27/2018 Vitamin D High Potency 1000Unit Ca psules 1 by mouth every day E78.5 Alonzo Kirby M.D. 12/04/19 18 Paroxetine HCL 20mg Tablets take one tablet by mouth every day 90tabs F34.1 Alonzo Kirby M.D. 0 04/23/2017 BD Uf II Short .5cc 31G Use Once Daily as Directed 200units Tiny Jones DO 10/31/2016 Freestyle Lancets Misc test twice a day e11.9 200units Alonzo Kirby M.D. 10/24/2016 Nystatin-Triamcinolone 329282-2.1Unit/GM-% Cream apply small amount to effected area twice a day (only until resolved) 15gm Alonzo Kirby M.D. 05/25/[address] 1 by mouth every day failed on omeprazole 90caps K21.9 Alonzo Kirby M.D. Humulin R 100Unit/ML Solution inject 2-8 units per sliding scale 9ml Alonzo Kirby M.D. 02/[address] 1 by mouth every day Alonzo Kirby M.D. 11/29/2015 BD Insulin Syringe Ultrafine II/Short/0. 5ML/31G X 5/16" 31G X 5/16" 0.5 ML Misc twice daily 200units Elizabeth Jones, 05/28/2015 Stool Softener 100mg Capsules 1 by mouth bid Alonzo Kirby M.D. 05/28/2015 Hydrochlorothiazide 25mg Tablets 1 by mouth every day 90tabs Alonzo Kirby M.D. 11/27/2014 Atorvastatin Calcium 80mg Tablets take one tablet by mouth once daily, 90tabs Alonzo Kirby M.D. 12/15/2013 Lantus 100Unit/ML Solution 30 units subcutaneously daily, 30units Alonzo Kirby M.D. 11/28 Ferrous Sulfate 324(65Fe) mg Table ts DR 1 tablet, 2 times per day, 60tabs Alonzo Kirby M.D. Metformin HCL 1000mg Tablets 1 tablet per day, 180tabs Alonzo Kirby M.D. Avapro 300mg Tablets 1 tablet, 1 time per day 90tabs Alonzo Kirby M.D. Istalol 0.5% Solution one drop each eye in am Gabo Briones O.D. Amlodipine Besylate 10mg Tablets 1 tablet, 1 time per day, 90tabs Christo Richey MD Fluorouracil 0.5% Cream Unknown Ketoconazole 2% Shampoo use as body wash then 3 times weekly Unknown Clopidogrel Bisulfate 75mg Tablets 1 by mouth every day- [place] Unknown Administration Of Flu Vaccine Inj ection Unknown Medications Administered in Office Medication SIG Qnty Indications Ordering Provider Date Administration Of Flu Vaccine Inj ection Alonzo Kirby M.D. 12/20/2020 Covid-19 vaccine, Unspecified Inj ection Unknown 05/10/2020 Covid-19 vaccine, Unspecified Inj ection Unknown 04/19/2020 Administration Of Flu Vaccine Inj ection Alonzo Kirby M.D. 12/09/2019 Administration Of Flu Vaccine Inj ection Alonzo Kirby M.D. 01/13/2016 Immunizations CPT Code Status Date Vaccine Lot # 63311 Given 12/20/2020 Influenza Vaccin e Quadrivalent Preser/Antibiotic Free Im Use [id number] 65316 Given 12/09/2019 Influenza Vaccin e Quadrivalent Preser/Antibiotic Free Im Use [id number] 72837 Given 04/04/2019 Shingrix Zoster Vaccine (HZV), Recombinant, Subunit, Adjuvanted 91742 Given 01/23/2019 Shingrix Zoster Vaccine (HZV), Recombinant, Subunit, Adjuvanted U-Tetan Given 12/30/2017 Tetanus,Unspecified U-Flu Given 12/18/2017 Influenza,Unspecified U-PneuC Given 10/26/2016 Prevnar 13 Q2037 Given 01/13/2016 Fluvirin Virus Vaccine 64305 01 71734 Given 12/30/2013 Influenza Virus Vaccine 54888 Given 01/28/2013 Influenza Virus Vaccine 23417 Given 01/03/2012 Influenza Virus Vaccine 15784 Given 03/01/2011 Influenza Virus Vaccine 62018 Given 05/16/2010 Pneumovax 23 05311 Given 04/19/2010 Pneumovax 23 10895 Given 03/21/2010 Adacel- Tetanus Diphtheria P ertussis 62082 Given 12/17/2009 Influenza Virus Vaccine 75463 Refused 05/20/2012 Zoster Vaccine Vital Signs Date Vital Result Comment 12/20/2020 10:31am BP Systolic 121 mmHg BP Diastolic 52 mmHg Heart Rate 58 /min Height 64 inches 5'4" Weight 207.00 lb BMI (Body Mass Index) 35.5 kg/m2 10/26/2020 2:59pm BP Systolic 140 mmHg BP Diastolic 60 mmHg Heart Rate 70 /min Height 64 inches 5'4" Weight 209.00 lb BMI (Body Mass Index) 35.9 kg/m2 Results Test Acquired Date Facility Test Result H/L Range Note Coronavirus 2019 Nasopharygeal 02/12/2021 [facility] [address] [place] [address] [phone] Coronavirus 2019 Nasopharygeal ASSAY INFORMATIO <SEE N OTE> 1 A1c 12/20/2020 [facility] Inspector Plumbing: [place] [address] [phone] Hba1c 6.9 % High <5.7 2 Est Avg Glucose 151 mg/dL High 60 - 110 Complete Blood Count 12/14/2020 [facility] Inspector Plumbing: Dr Christo Richey [place], [place] [id number] [phone] WBC 5.6 x10*3/UL 4.1 - 10.9 RBC 4.44 x10*6/UL 4.20 - 6.30 Hemoglobin 13.2 g/dL 12.0 - 18.0 Hematocrit 38.5 % 37.0 - 51.0 MCV 86.7 fL 80.0 - 97.0 MCH 29.7 pg 26.0 - 32.0 MCHC 34.2 g/dL 31.0 - 38.0 RDW 13.3 % 11.6 - 13.7 PLT 279 x10*3/UL 140 - 440 MPV 7.7 FL Low 7.8 - 11.0 Lymph % 19.1 % 10.0 - 58.5 Mid % 5.4 % 1.7 - 9.3 Neut % 75.5 % 37.0 - 92.0 Lymph # 1.0 x10*3/UL 0.6 - 4.1 Mid # 0.4 x10*3/UL 0.1 - 0.6 Neut # 4.2 x10*3/UL 2.0 - 7.8 Comprehensive Chem Profile 12/14/2020 [facility] Inspector Plumbing: [place] [address] [phone] Glucose 112 mg/dL High 74 - 99 3 BUN 17 mg/dL 7 - 18 Creatinine 1.2 mg/dL 0.6 - 1.3 Sodium 133 mEq/L Low 136 - 145 Potassium 4.9 mEq/L 3.5 - 5.1 Chloride 96 mEq/L Low 98 - 107 Carbon Dioxide 26 mEq/L 21 - 32 Calcium 9.7 mg/dL 8.5 - 10.1 Alk. Phosphatase 87 mg/dL 46 - 116 Total Bilirubin 0.4 mg/dL 0.2 - 1.0 Ast (Sgot) 14 U/L Low 15 - 37 Alt (SGPT) 32 U/L 12 - 78 Albumin 4.0 g/dL 3.4 - 5.0 Total Protein 7.2 g/dL 6.4 - 8.2 A/G Ratio 1.25 CALC 1.00 - 1.90 GFR 59 mL/min Low >60 GFR >= 60 mL/min >60 4 Lipid Profile 12/14/2020 [facility] Inspector Plumbing: [place] [address] [phone] Cholesterol 133 mg/dL 131 - 200 Triglycerides 167 mg/dL High 30 - 150 HDL Cholesterol 63 mg/dL High 35 - 60 LDL (Calculated) 37 CALC Low 50 - 159 Laboratory test finding 12/14/2020 [facility] Inspector Plumbing: Dr [place] [address] [phone] Thyroid Stimulating Hormone 2.30 uIU/mL 0.3 6 - 3.74 Laboratory test finding 12/07/2020 [facility] [address] [place], [place] [address] [phone] Bedside Glucose 93 mg/dL Normal 83-110 Complete Blood Count 12/07/2020 [facility] enter [address] [place] [address] [phone] White Blood Count 6.7 10 Normal 4.0-10.0 [...] 0.0 % Normal 0-0 Prothrombin Time/Inr 12/07/2020 [facility] enter [address] [place] [address] [phone] Prothrombin Time 13.0 seconds Normal 12.7-14.5 Inr 0.94 Normal 5 Basic Metabolic Profile 12/07/[address] [address] [phone] Glucose, Fasting 114 mg/dL High 70-100 Blood Urea Nitrogen 21 mg/dL High 7-18 Creatinine For GFR 1.01 mg/dL Normal 0.70-1.30 Glomerular Filtration Rate > 60.0 Normal >42 6 Sodium Level 131 mEq/L Low 136-145 Potassium Serum 4.3 mEq/L Normal 3.5-5.1 Chloride Level 97 mEq/L Low 98-107 Carbon Dioxide Level 26 mEq/L Normal 21-32 Anion Gap 8 mEq/L Normal 8-16 Calcium Level 9.5 mg/dL Normal 8.8-10.2 Laboratory test finding 12/07/[address] [address] [phone] Bedside Glucose 100 mg/dL Normal 83-110 Gastrointestinal (GI) Panel 10/28/[address] [address] [phone] Gastrointestinal (GI) Panel This Gastrointes <SEE NOTE > 7 Complete Blood Count 10/26/2020 [facility] Inspector Plumbing: [place] [address] [phone] WBC 6.0 x10*3/UL 4.1 - 10.9 RBC 4.00 x10*6/UL Low 4.20 - 6.30 Hemoglobin 11.9 g/dL Low 12.0 - 18.0 Hematocrit 34.4 % Low 37.0 - 51.0 MCV 85.8 fL 80.0 - 97.0 MCH 29.8 pg 26.0 - 32.0 MCHC 34.7 g/dL 31.0 - 38.0 RDW 13.8 % High 11.6 - 13.7 PLT 235 x10*3/UL 140 - 440 MPV 8.2 FL 7.8 - 11.0 Lymph % 25.6 % 10.0 - 58.5 Mid % 7.8 % 1.7 - 9.3 Neut % 66.6 % 37.0 - 92.0 Lymph # 1.5 x10*3/UL 0.6 - 4.1 Mid # 0.6 x10*3/UL 0.1 - 0.6 Neut # 3.9 x10*3/UL 2.0 - 7.8 Laboratory test finding 10/26/2020 [facility] sarika, leela Inspector Plumbing: [place] [address] [phone] Magnesium 1.8 mg/dL 1.8 - 2.4 Comprehensive Chem Profile 10/26/2020 [facility] leela lutz Inspector Plumbing: [place] [address] [phone] Glucose 158 mg/dL High 74 - 99 8 BUN 26 mg/dL High 7 - 18 Creatinine 1.4 mg/dL High 0.6 - 1.3 Sodium 137 mEq/L 136 - 145 Potassium 4.6 mEq/L 3.5 - 5.1 Chloride 102 mEq/L 98 - 107 Carbon Dioxide 24 mEq/L 21 - 32 Calcium 9.2 mg/dL 8.5 - 10.1 Alk. Phosphatase 77 mg/dL 46 - 116 Total Bilirubin 0.4 mg/dL 0.2 - 1.0 Ast (Sgot) 14 U/L Low 15 - 37 Alt (SGPT) 31 U/L 12 - 78 Albumin 3.6 g/dL 3.4 - 5.0 Total Protein 6.8 g/dL 6.4 - 8.2 A/G Ratio 1.13 CALC 1.00 - 1.90 GFR 49 mL/min Low >60 GFR 60 mL/min Low >60 9 Vitamin B12 & Folate 10/13/2020 [facility] enter [address] [id number] [phone] Vitamin B12 Level 758 pg/mL Normal 10 Folate > 24.0 NG/ML Normal 11 1 ASSAY INFORMATION: Real Time RT-PCR NOTE: The COVID-19 assay has been cleared by the U.S. Food and Drug Administration under the Emergency Use Authorization (EUA). [facility] are designated as high complexity laboratories by the Clinical Laboratory Improvement Amendments of 1988(CLIA) and are qualified to perform this test. Not Detected 2 Lab Result Notes: Pre-Diabetes 5.7 - 6.4 % Diabetes = or > 6.5% 3 100-125 mg/dL PRE-DIABET ES/FASTING >126 mg/dL DIABETES/FASTING 4 CHRONIC KIDNEY DISEASE STAGI NG PER NKF STAGE I & II GFR >= 60 NORMAL TO MILDLY DECREASED STAGE III GFR 30-59 MODERATELY DECREASED STAGE IV GFR 15-29 SEVERELY DECREASED STAGE V GFR <15 VERY LITTLE GFR LEFT ESRD GFR <15 ON LANDSCAPE AND YARDWORK LABORER 5 THERAPUTIC HUMAN INR VALUES INDICATIONS NORMAL RANGES PROPHYLAXIS/TREATMENT OF: VENOUS THROMBOSIS 2.0-3.0 PULMONARY EMBOLISM 2.0-3.0 PREVENTION OF SYSTEMIC EMBOLISM FROM: TISSUE HEART VALVES 2.0-3.0 ACUTE MYOCARDIAL INFARCTION 2.0-3.0 VALVULAR HEART DISEASE 2.0-3.0 ATRIAL FIBRILLATION 2.0-3.0 MECHANICAL VALVES(HIGH RISK) 2.5-3.5 RECURRENT MYOCARDIAL INFARCTION 2.5-3.5 6 Units are mL/min/1.73 m2 Chronic Kidney Disease Staging per NKF: Stage I & II GFR >=60 Normal to Mildly Decreased Stage III GFR 30-59 Moderately Decreased Stage IV GFR 15-29 Severely Decreased Stage V GFR <15 Very Little GFR Left ESRD GFR <15 on LANDSCAPE AND YARDWORK LABORER 7 This Gastrointestinal PCR Pa harrison detects the following bacteria, parasites and viruses: Campylobacter (jejuni, coli and upsaliensis), Clostridium difficile (toxin A/B), Plesiomonas shigelloides, Salmonella, Yersinia enterocolitica, Vibrio (parahaemolyticus, vulnificus and cholerae), Vibrio clolerae, Enteroaggregative E. coli (EAEC), Enteropathogenis E. coli (EPEC), Enterotoxigenic E. coli (ETEC) it/st, Shiga-like producing E. coli (STEC) stx1/stc2, E.coli O157, Shigella/Enteroinvasive E. coli (EIEC), Cryptosporidium, Cyclospora cayetanensis, Entamoeba histolytica, Giardia lamblia, Adenovirus F 40/41, Astrovirus, Norovirus GI/GII, Rotavirus A and Sapovirus (I, II, IV, V). One negative specimen does not rule out the possibility of a parasitic infection. NEGATIVE by MULTIPLEXED NUCLEIC ACID PCR 8 100-125 mg/dL PRE-DIABET ES/FASTING >126 mg/dL DIABETES/FASTING 9 CHRONIC KIDNEY DISEASE STAGI NG PER NKF STAGE I & II GFR >= 60 NORMAL TO MILDLY DECREASED STAGE III GFR 30-59 MODERATELY DECREASED STAGE IV GFR 15-29 SEVERELY DECREASED STAGE V GFR <15 VERY LITTLE GFR LEFT ESRD GFR <15 ON LANDSCAPE AND YARDWORK LABORER 10 VITAMIN B12 NORMAL RANGE NORMAL 247 - 911 PG/ML INDETERMINATE 211 - 246 PG/ML DEFICIENT LESS THAN 211 PG/ML 11 FOLATE NORMAL RANGE NORMAL GREATER THAN 5.4 NG/ML INDETERMINATE 3.4-5.4 NG/ML DEFICIENT LESS THAN 3.4 NG/ML Procedures Date Code Description Status 10/26/2020 78199 Office/Outpatient Established Mo d MDM 30-39 Min Completed 04/06/2020 [id number] Diabetic Retinal Eye Exam [facility] 03/24/2019 [id number] Diabetic Retinal Eye Exam [facility] 02/12/2018 [id number] Diabetic Retinal Eye Exam [facility] Medical Devices Description No Information Available Encounters Type Date Location Provider Dx Diagnosis Office Visit 10/26/2020 3:00p [facility] Bob Hurst JR PA E11.9 Type 2 diabetes mellitus wit hout complications R19.7 Diarrhea, unspecified Assessments Date Code Description Provider 12/20/2020 M54.17 Radiculopathy, lumbosacral regio n Alonzo Kirby M.D. 12/20/2020 R19.7 Diarrhea, unspecified Alonzo F. W jelani, M.D. 12/20/2020 E11.9 Type 2 diabetes mellitus without complications Alonzo Kirby M.D. 12/20/2020 E78.5 Hyperlipidemia, unspecified Juarez Kirby M.D. 12/20/2020 I10 Essential (primary) hypertension Alonzo Kirby M.D. 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 12/20/2020 D64.9 Anemia, unspecified Alonzo guadalupe M.D. 12/20/2020 K21.9 Gastro-esophageal reflux disease without esophagitis Alonzo Kirby M.D. 12/20/2020 G20 Parkinson's disease Alonzo guadalupe M.D. 12/20/2020 R97.20 Elevated prostate specific antig en [PSA] Alonzo Kirby M.D. 12/20/2020 K31.84 Gastroparesis Alonzo Kirby M.D. 12/20/2020 Z23 Encounter for immunization Alonzo Kirby M.D. 12/14/2020 D64.9 Anemia, unspecified Alonzo guadalupe M.D. 12/14/2020 D64.9 Anemia, unspecified Lab Schedule 12/14/2020 I10 Essential (primary) hypertension Alonzo Kirby M.D. 12/14/2020 I10 Essential (primary) hypertension Lab Schedule 12/14/2020 E78.5 Hyperlipidemia, unspecified Juarez Kirby M.D. 12/14/2020 E78.5 Hyperlipidemia, unspecified Lab Schedule 10/26/2020 E11.9 Type 2 diabetes mellitus without complications ALEXIA Zepeda JR 10/26/2020 R19.7 Diarrhea, unspecified ALEXIA Person JR Plan of Treatment Future Appointment(s):* 04/13/2021 2:30 pm - Alonzo Kirby M.D. at [facility] 12/20/2020 - Alonzo F. White, M.D.* M54.17 Radiculopathy, lumbosacral region * R19.7 Diarrhea, unspecified * E11.9 Type 2 diabetes mellitus without complications * E78.5 Hyperlipidemia, unspecified * I10 Essential (primary) hypertension * Z79.4 [facility] (current) use of insulin * D64.9 Anemia, unspecified * K21.9 Gastro-esophageal reflux disease without esophagitis * G20 Parkinson's disease * R97.20 Elevated prostate specific antigen [PSA] * K31.84 Gastroparesis * Z23 Encounter for immunization * * New Orders:* Physical Therapy, Ordered: 12/20/20 * Comments:* 1. Radiculopathy, lumbosacral region: 2. Diarrhea: Essentially stable. We discussed possible etiologies including gastroparesis. Patient will have a colonoscopy this month.3. Type 2 diabetes mellitus without complications: We will check HgbA1c on his way out. His last HgbA1c in May 2020 was controlled. We will continue to monitor for end organ damage. Continue current regimen.4. Hyperlipidemia: Good results on present dose of Lipitor except slightly high TGs level. We will continue to monitor him on present regimen.5. Hypertension: Stable on present regimen, will continue and monitor.6. [facility] (current) use of insulin: He will continue with Lantus 30 units appropriately. We will monitor.7. Anemia: Normalized hemoglobin level and platelets are normal. We will monitor.8. Gastro- esophageal reflux disease without esophagitis: He requires Nexium for symptom control and will continue. He had a normal EGD in [address] De León.9. Parkinson's disease: Doing well with Requip daily. He is following with Bowen at [facility] and will continue appropriate follow up.10. Elevated prostate specific antigen: Patient is following up with Stevie Carmona at [facility] and his last PSA level in August 2020 was normal. He will continue to follow up appropriately with Urology. We will continue to monitor.11. Gastroparesis:Ongoing cares: Colonoscopy planned 01/06/21 per patient. I am going to see him again in months with . If he has new problems or issues sooner he will let us know. Functional Status Description No Information Available Mental Status Description No Information Available Referrals Refer to Reason for Referral Status Appt Date Bakari Valles JR, MD CONSULT FOR SCREENING COLONO SCOPY DX: PERSISTENT DIARRHEA Patient Notified 11/09/2020 [facility] [address] [id number] [phone]
--- OUTSIDE RECORDS SUMMARY | 2021-02-17 09:28 | CCD | Continuity of Care Document ---
Author Author Venu TRIMBLE MD Organization Unknown Address [address] [facility] [address] [place] [address] Phone [phone] Care Team Providers Care Manufacturing Plant Manager Name Role Phone Alonzo Jeffers M.D. AUTM [phone] Wade Hurst AUTM [phone] AUTM Unavailable Problems Active Problems Provider Date Essential hypertension Fior Lowe, A.N.P. Onset: 07/2012 Obstructive sleep apnea syndrome Fior Lowe, A.N.P. Onset: 05/26/2010 Atherosclerosis of arteries of the extremities Leigh Ann Trimble MD Onset: 12/23/2020 Atherosclerosis of coronary artery without angina pect lesli Leigh Ann Trimble MD Onset: 12/23/2020 Morbid obesity Leigh Ann Trimble MD Onset: 2020 Idiopathic osteoarthritis Leigh Ann Trimble MD Onset: 12/23/2020 Diarrhea Leigh Ann Trimble MD Onset: 2020 Social History Type Date Description Comments Sex Unknown ETOH Use Denies alcohol use Tobacco Use Reviewed: 01/02/19 Non Smoker Recreational Drug Use Denies Drug Use Smoking Status Reviewed: 06/28/20 Non Smoker Allergies and adverse reactions Description No Known Drug Allergies Medications Active Medications SIG Qnty Indications Ordering Provide r Date Clopidogrel Bisulfate 75mg Tablets 1 tab by mouth every day 90tabs Jose Ryan MD 10/14/2020 Metformin HCL 1000mg Tablets 1 tab by mouth twice a day Unknown Latanoprost 0.005% Solution Instill 1 Drop Into Both Eyes AT Bedtime as Directed Unknown Fluorouracil 5% Cream applied twice a day Unknown Triamcinolone Acetonide 0.1% Cream apply to affected twice a day M-F Unknown Ketoconazole 2% Shampoo bid Unknown Doxazosin Mesylate 2mg Tablets 1 tab po qd Unknown Chlorthalidone 25mg Tablets 1 tab po qd Unknown Iron 325(65Fe) mg Tablets take 1 tablet by mouth daily. Unknown Magnesium 500mg Tablets 2 tab po qhs Unknown Fish Oil 1200mg Capsules 1 by mouth every day Unknown Multivitamin Adult Tablets 1 by mouth every day Unknown CPAP 12cm marras Unknown Nystatin-Triamcinolone 104275-7.1Unit/GM-% Cream twice a day Unknown Paroxetine HCL 20mg Tablets 1 by [...] Unknown Atorvastatin Calcium 80mg Tablets daily Unknown History Medications Clopidogrel Bisulfate 75mg Tablets 1 by mouth every day 90tabs Jose Ryan MD 10/14/2020 - Immunizations CPT Code Status Date Vaccine Lot # [id number] Given 12/21/2010 Influenza Vaccine 3 Years Of Age Or Older (Flulaval) 88004 Given 02/11/2009 Influenza Vaccine 07022 Given 12/27/2007 Influenza Vaccine Vital Signs Date Vital Result Comment 12/23/2020 3:10pm BP Systolic 160 mmHg BP Diastolic 71 mmHg Body Temperature 98.4 F Height 65 inches 5'5" Weight 208.00 lb BMI (Body Mass Index) 34.6 kg/m2 [place] Body Weight 136 lb Weight 94.349 kg BSA (Body Surface Area) 2.01 m2 11/15/2020 1:29pm BP Systolic 160 mmHg BP Diastolic 70 mmHg Body Temperature 98.3 F Height 65 inches 5'5" Weight 207.00 lb BMI (Body Mass Index) 34.4 kg/m2 [place] Body Weight 136 lb Weight 93.895 kg BSA (Body Surface Area) 2.01 m2 Results Test Acquired Date Facility Test Result H/L Range Note Complete Blood Count 12/07/2020 [facility] Main Lab [address] [place] [employer], [place] [id number] [phone] White Blood Count 6.7 10 Normal 4.0-10.0 [...] 0.0 % Normal 0-0 Prothrombin Time/Inr 12/07/2020 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 Procedures Date Code Description Status 12/23/2020 52886 Office/Outpatient Established Mo d MDM 30-39 Min Completed 11/15/2020 57068 Office/Outpatient Established Mo d MDM 30-39 Min Completed 11/15/2020 11234 Office/Outpatient Established Lo w MDM 20-29 Min Completed 10/14/2020 43677 Office/Outpatient Established Lo w MDM 20-29 Min Completed 06/28/2020 52502 Office/Outpatient Established Lo w MDM 20-29 Min Completed Medical Devices Description No Information Available Encounters Type Date Location Provider Dx Diagnosis Office Visit 12/23/2020 3:15p [facility] Surgery Practice Rat estela Trimble MD I70.202 Unsp athscl [place] arteries of extremities, left leg R19.7 Diarrhea, unspecified 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 M19.09 Primary osteoarthritis, othe r specified site E66.01 Morbid (severe) obesity due to excess calories Office Visit 11/15/2020 1:15p [facility] ALEXIA Barahona R19.7 Diarrhea, unspecified K57.30 Dvrtclos of lg int w/o perfo ration or abscess w/o bleeding K64.9 Unspecified hemorrhoids I70.213 Athscl [place] arteries of ex trm w intrmt [place]bert, bi legs Office Visit 11/15/2020 1:45p [facility] Surgery Practice Jose valiente MD I70.202 Unsp athscl [place] arteries of extremiti es, left leg Office Visit 10/14/2020 11:00a [facility] Surgery Practice Jose valiente MD I70.212 Athscl [place] arteries of extrm w intrmt elbert, left leg Office Visit 06/28/2020 10:15a [facility] Practice ALEXIA Barahona I70.213 Athscl [place] arteries of extrm w intrmt elbert, bi legs Assessments Date Code Description Provider 12/23/2020 I70.202 Unspecified atherosc lerosis of [place] arteries of extremities, left leg Leigh Ann Trimble MD 12/23/2020 R19.7 Diarrhea, unspecified Leigh Ann Trimble MD 12/23/2020 I25.10 Atherosclerotic hear t disease of [place] coronary artery without angina pectoris Leigh Ann Trimble MD 12/23/2020 M19.09 Primary osteoarthritis, other sp ecified site Leigh Ann Trimble MD 12/23/2020 E66.01 Morbid (severe) obesity due to e xcess calories Leigh Ann Trimble MD 11/15/2020 I70.202 Unspecified atherosc lerosis of [place] arteries of extremities, left leg Jose Ryan [...] extremities with intermittent claudication, left leg Jose Ryan MD 06/28/2020 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 His symptoms have resolvedHe has chronic ciarra rrhea, since May 2020. No history of bleeding per rectum, or anemia.Plan:Continue dual antiplatelet therapy for atleast 1 month post procedure. Follow-up with Dr. Ryan in 1 to 2 weeks-to discuss interruption of antiplatelet therapy.My impression and plan were discussed with the patient and his . They understand and agree to the plan of care. Message also conveyed to general surgery team. * R19.7 Diarrhea, unspecified* Comments:* Since May 2020-being evaluated by general surgery, for colonoscopy exam * I25.10 Atherosclerotic heart disease of [place] coronary artery without angina pectoris* Comments:* S/p CABG * M19.09 Primary osteoarthritis, other specified site* Comments:* Chronic * E66.01 Morbid (severe) obesity due to excess calories* Comments:* Diet and exercise: For weight loss discussed Functional Status Description No Information Available Mental Status Description No Information Available Referrals Refer to Reason for Referral Status Appt Date Bkaari Valles M.D. COLONOSCOPY Scheduled 11/09/2020 [facility] General Surgery [address] [id number] [phone]
--- OUTSIDE RECORDS SUMMARY | 2021-02-17 09:28 | CCD | Continuity of Care Document ---
Author Author Venu CHRISTIANSON N.P Minh Organization Unknown Address [address] [place] [address] Phone [phone] Care Team Providers Care Seo Analyst Name Role Phone Alonzo Jeffers M.D. AUTM [phone] Wade Hurst AUTM [phone] AUTM Unavailable Problems Active Problems Provider Date [...] day 90tabs Jose Ryan MD 10/14/2020 Nystatin-Triamcinolone 295810-7.1Unit/GM-% Cream twice a day Unknown Oxybutynin Chloride ER 5mg Tablets ER 24HR 1 by mouth every day Unknown 000 Cyanocobalamin 1000mcg/ML Solution 1 time per month Unknown Spironolactone 25mg Tablets 1 every day Unknown Krill Oil [place]-3 500mg Capsules 1 every day Unknown Latanoprost [...] 3 Years Of Age Or Older (Flulaval) 46447 Given 02/11/2009 Influenza Vaccine 49884 Given 12/27/2007 Influenza Vaccine Vital Signs Date Vital Result Comment 01/13/2021 2:35pm BP Systolic 140 mmHg BP Diastolic 60 mmHg Heart Rate 59 /min O2 % BldC Oximetry 98 % Height 65 inches 5'5" Weight 211.00 lb BMI (Body Mass Index) 35.1 kg/m2 [place] Body Weight 136 lb Weight 95.710 kg BSA (Body Surface Area) 2.02 m2 12/23/2020 3:10pm BP Systolic 160 mmHg BP Diastolic 71 mmHg Body Temperature 98.4 F Height 65 inches 5'5" Weight 208.00 lb BMI (Body Mass Index) 34.6 kg/m2 [place] Body Weight 136 lb Weight 94.349 kg BSA (Body Surface Area) 2.01 m2 Results Test Acquired Date Facility Test Result H/L Range Note Complete Blood Count 12/07/2020 [facility] Main Lab 0 [place], [place] [address] [phone] White Blood Count 6.7 10 Normal 4.0-10.0 [...] 0.0 % Normal 0-0 Prothrombin Time/Inr 12/07/2020 [facility] Main Lab 0 [place] [address] [phone] Prothrombin Time 13.0 seconds Normal 12.7-14.5 Inr 0.94 Normal 1 Basic Metabolic Profile 12/07/2020 [facility] Main Lab [address] [place] [address] [phone] Glucose, Fasting 114 mg/dL High 70-100 Blood [...] Little GFR Left ESRD GFR <15 on [employer] Procedures Date Code Description Status 12/23/2020 42331 Office/Outpatient Established Mo d MDM 30-39 Min Completed 12/07/2020 14553 Revascularization,Endovascular W /Atherectomy, Inc Angioplasty Completed 11/15/2020 95883 Office/Outpatient Established Mo d MDM 30-39 Min Completed 11/15/2020 98668 Office/Outpatient Established Lo w MDM 20-29 Min Completed 10/14/2020 70748 Office/Outpatient Established Lo w MDM 20-29 Min Completed Medical Devices Description No Information Available Encounters Type Date Location Provider Dx Diagnosis Office Visit 12/23/2020 3:15p [facility] Surgery Practice Rat estela Paige MD I70.202 Unsp athscl [place] arteries of extremities, left leg R19.7 Diarrhea, unspecified 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 M19.09 Primary osteoarthritis, othe r specified site E66.01 Morbid (severe) obesity due to excess calories Office Visit 11/15/2020 1:15p [facility] ALEXIA Barahona R19.7 Diarrhea, unspecified K57.30 Dvrtclos of lg int w/o perfo ration or abscess w/o bleeding K64.9 Unspecified hemorrhoids I70.213 Athscl [place] arteries of ex trm w intrmt elbert, bi legs Office Visit 11/15/2020 1:45p [facility] Jose valiente MD I70.202 Unsp athscl [place] arteries of extremiti es, left leg Office Visit 10/14/2020 11:00a [facility] Jose valiente MD I70.212 Athscl [place] arteries of extrm w intrmt elbert, left leg Assessments Date Code Description Provider 01/13/2021 G47.33 Obstructive sleep apnea (adult) (pediatric) Kelly Christianson, N.P. 12/23/2020 I70.202 Unspecified atherosc lerosis of [place] arteries of extremities, left leg Leigh Ann Paige MD 12/23/2020 R19.7 Diarrhea, unspecified Leigh Ann Paige MD 12/23/2020 I25.10 Atherosclerotic hear t disease of [place] coronary artery without angina pectoris Leigh Ann Paige MD 12/23/2020 M19.09 Primary osteoarthritis, other sp ecified site Leigh Ann Paige MD 12/23/2020 E66.01 Morbid (severe) obesity due to e xcess calories Leigh Ann Paige MD 12/07/2020 T82.856A Stenosis of peripheral vascular stent, initial encounter Jose Ryan MD 11/15/2020 I70.202 Unspecified atherosc lerosis of [place] arteries of extremities, left leg Jose Ryan [...] 10:15 am - Kelly Christianson NTamie at [facility] Pulmonary/Thoracic * 03/03/2021 10:00 am - ALEXIA Cole at [facility] Surgery Practice * 02/17/2021 11:45 am - Bakari Valles JR, MD at [facility] 01/13/2021 - Kelly Christianson N.P.* G47.33 [...] supply order has been sent to the [employer]. * Follow up:* 1. Follow up in one year to reassess CPAP compliance or sooner should problems develop. Functional Status Description No Information Available Mental Status Description No Information Available Referrals Refer to Reason for Referral Status Appt Date Bakari Valles M.D. COLONOSCOPY Scheduled 11/09/2020 [facility] General Surgery [address] [id number] [phone]
--- OUTSIDE RECORDS SUMMARY | 2021-02-17 09:28 | CCD | Continuity of Care Document ---
Author Author Venu CHRISTIANSON N.P Minh Organization Unknown Address [address] [place] [address] Phone [phone] Care Team Providers Care Pipe Threading Machine Operator Name Role Phone Alonzo Jeffers M.D. AUTM [phone] Wade Hurst AUTM [phone] AUTM Unavailable Problems Active Problems Provider Date [...] day 90tabs Jose Ryan MD 10/14/2020 Nystatin-Triamcinolone 722292-9.1Unit/GM-% Cream twice a day Unknown Oxybutynin Chloride ER 5mg Tablets ER 24HR 1 by mouth every day Unknown 000 Cyanocobalamin 1000mcg/ML Solution 1 time per month Unknown Spironolactone 25mg Tablets 1 every day Unknown Krill Oil [place]-3 500mg Capsules 1 every day Unknown Latanoprost [...] 3 Years Of Age Or Older (Flulaval) 77985 Given 02/11/2009 Influenza Vaccine 14691 Given 12/27/2007 Influenza Vaccine Vital Signs Date Vital Result Comment 01/13/2021 2:35pm BP Systolic 140 mmHg BP Diastolic 60 mmHg Heart Rate 59 /min O2 % BldC Oximetry 98 % Height 65 inches 5'5" Weight 211.00 lb BMI (Body Mass Index) 35.1 kg/m2 [place] Body Weight 136 lb Weight 95.710 kg BSA (Body Surface Area) 2.02 m2 12/23/2020 3:10pm BP Systolic 160 mmHg BP Diastolic 71 mmHg Body Temperature 98.4 F Height 65 inches 5'5" Weight 208.00 lb BMI (Body Mass Index) 34.6 kg/m2 [place] Body Weight 136 lb Weight 94.349 kg BSA (Body Surface Area) 2.01 m2 Results Test Acquired Date Facility Test Result H/L Range Note Complete Blood Count 12/07/2020 [facility] Main Lab 0 [place], [place] [address] [phone] White Blood Count 6.7 10 Normal 4.0-10.0 [...] 0.0 % Normal 0-0 Prothrombin Time/Inr 12/07/2020 [facility] enter Main Lab 0 [place] [address] [phone] Prothrombin Time 13.0 seconds Normal 12.7-14.5 Inr 0.94 Normal 1 Basic Metabolic Profile 12/07/2020 [facility] Main Lab [address] [place] [address] [phone] Glucose, Fasting 114 mg/dL High 70-100 Blood [...] Little GFR Left ESRD GFR <15 on 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 Procedures Date Code Description Status 12/23/2020 19492 Office/Outpatient Established Mo d MDM 30-39 Min Completed 12/07/2020 43536 Revascularization,Endovascular W /Atherectomy, Inc Angioplasty Completed 11/15/2020 07781 Office/Outpatient Established Mo d MDM 30-39 Min Completed 11/15/2020 08974 Office/Outpatient Established Lo w MDM 20-29 Min Completed 10/14/2020 20916 Office/Outpatient Established Lo w MDM 20-29 Min Completed Medical Devices Description No Information Available Encounters Type Date Location Provider Dx Diagnosis Office Visit 12/23/2020 3:15p [facility] Surgery Practice Rat estela Paige MD I70.202 Unsp athscl [place] arteries of extremities, left leg R19.7 Diarrhea, unspecified 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 M19.09 Primary osteoarthritis, othe r specified site E66.01 Morbid (severe) obesity due to excess calories Office Visit 11/15/2020 1:15p [facility] Practice ALEXIA Barahona R19.7 Diarrhea, unspecified K57.30 Dvrtclos of lg int w/o perfo ration or abscess w/o bleeding K64.9 Unspecified hemorrhoids I70.213 Athscl [place] arteries of ex trm w intrmt elbert, bi legs Office Visit 11/15/2020 1:45p [facility] Practice Jose valiente MD I70.202 Unsp athscl [place] arteries of extremiti es, left leg Office Visit 10/14/2020 11:00a [facility] Practice Jose valiente MD I70.212 Athscl [place] arteries of extrm w intrmt elbert, left leg Assessments Date Code Description Provider 01/13/2021 G47.33 Obstructive sleep apnea (adult) (pediatric) Kelly Christianson, N.P. 12/23/2020 I70.202 Unspecified atherosc lerosis of [place] arteries of extremities, left leg Leigh Ann Paige MD 12/23/2020 R19.7 Diarrhea, unspecified Leigh Ann Paige MD 12/23/2020 I25.10 Atherosclerotic hear t disease of [place] coronary artery without angina pectoris Leigh Ann Paige MD 12/23/2020 M19.09 Primary osteoarthritis, other sp ecified site Leigh Ann Paige MD 12/23/2020 E66.01 Morbid (severe) obesity due to e xcess calories Leigh Ann Paige MD 12/07/2020 T82.856A Stenosis of peripheral vascular stent, initial encounter Jose Ryan MD 11/15/2020 I70.202 Unspecified atherosc lerosis of [place] arteries of extremities, left leg Jose Ryan [...] 10:15 am - Kelly Christianson NTamie at [facility] Pulmonary/Thoracic * 03/03/2021 10:00 am - ALEXIA Cole at [facility] Surgery Practice * 02/17/2021 11:45 am - Bakari Valles JR, MD at [facility] Practice 01/13/2021 - Kelly Christianson N.P.* G47.33 [...] supply order has been sent to the [employer]. * Follow up:* 1. Follow up in one year to reassess CPAP compliance or sooner should problems develop. Functional Status Description No Information Available Mental Status Description No Information Available Referrals Refer to Reason for Referral Status Appt Date Bakari Valles M.D. COLONOSCOPY Scheduled 11/09/2020 [facility] General Surgery [address] [id number] [phone]
--- OUTSIDE RECORDS SUMMARY | 2021-02-17 09:28 | CCD | Continuity of Care Document ---
Author Author Venu CHRISTIANSON N.P Minh Organization Unknown Address [address] [place] [address] Phone [phone] Care Team Providers Care Disk Sander Name Role Phone Alonzo Jeffers M.D. AUTM [phone] Wade Hurst AUTM [phone] AUTM Unavailable Problems Active Problems Provider Date [...] day 90tabs Jose Ryan MD 10/14/2020 Nystatin-Triamcinolone 284653-2.1Unit/GM-% Cream twice a day Unknown Oxybutynin Chloride ER 5mg Tablets ER 24HR 1 by mouth every day Unknown 000 Cyanocobalamin 1000mcg/ML Solution 1 time per month Unknown Spironolactone 25mg Tablets 1 every day Unknown Krill Oil [place]-3 500mg Capsules 1 every day Unknown Latanoprost [...] 3 Years Of Age Or Older (Flulaval) 22637 Given 02/11/2009 Influenza Vaccine 66881 Given 12/27/2007 Influenza Vaccine Vital Signs Date Vital Result Comment 01/13/2021 2:35pm BP Systolic 140 mmHg BP Diastolic 60 mmHg Heart Rate 59 /min O2 % BldC Oximetry 98 % Height 65 inches 5'5" Weight 211.00 lb BMI (Body Mass Index) 35.1 kg/m2 [place] Body Weight 136 lb Weight 95.710 kg BSA (Body Surface Area) 2.02 m2 12/23/2020 3:10pm BP Systolic 160 mmHg BP Diastolic 71 mmHg Body Temperature 98.4 F Height 65 inches 5'5" Weight 208.00 lb BMI (Body Mass Index) 34.6 kg/m2 [place] Body Weight 136 lb Weight 94.349 kg BSA (Body Surface Area) 2.01 m2 Results Test Acquired Date Facility Test Result H/L Range Note Complete Blood Count 12/07/2020 [facility] Main Lab 0 [place], [place] [address] [phone] White Blood Count 6.7 10 Normal 4.0-10.0 [...] 0.0 % Normal 0-0 Prothrombin Time/Inr 12/07/2020 [facility] enter Main Lab 0 [place] [address] [phone] Prothrombin Time 13.0 seconds Normal 12.7-14.5 Inr 0.94 Normal 1 Basic Metabolic Profile 12/07/2020 [facility] Main Lab [address] [place] [address] [phone] Glucose, Fasting 114 mg/dL High 70-100 Blood [...] Little GFR Left ESRD GFR <15 on SENIOR PRODUCT DEVELOPMENT MANAGER Procedures Date Code Description Status 01/13/2021 90844 Office/Outpatient Established Lo w MDM 20-29 Min Completed 12/23/2020 13602 Office/Outpatient Established Mo d MDM 30-39 Min Completed 12/07/2020 29831 Revascularization,Endovascular W /Atherectomy, Inc Angioplasty Completed 11/15/2020 03653 Office/Outpatient Established Mo d MDM 30-39 Min Completed 11/15/2020 18962 Office/Outpatient Established Lo w MDM 20-29 Min Completed 10/14/2020 12099 Office/Outpatient Established Lo w MDM 20-29 Min Completed Medical Devices Description No Information Available Encounters Type Date Location Provider Dx Diagnosis Office Visit 01/13/2021 2:30p [facility] Pulmonary/Thoracic Rosa Isela Christianson, N.P. G47.33 Obstructive sleep apnea (adult) (pediatr ic) Office Visit 12/23/2020 3:15p [facility] Surgery Practice Joaquim Paige MD I70.202 Unsp athscl [place] arteries of extremities, left leg R19.7 Diarrhea, unspecified 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 M19.09 Primary osteoarthritis, othe r specified site E66.01 Morbid (severe) obesity due to excess calories Office Visit 11/15/2020 1:15p [facility] ALEXIA Barahona R19.7 Diarrhea, unspecified K57.30 Dvrtclos of lg int w/o perfo ration or abscess w/o bleeding K64.9 Unspecified hemorrhoids I70.213 Athscl [place] arteries of ex trm w intrmt elbert, bi legs Office Visit 11/15/2020 1:45p [facility] Jose valiente MD I70.202 Unsp athscl [place] arteries of extremiti es, left leg Office Visit 10/14/2020 11:00a [facility] Jose valiente MD I70.212 Athscl [place] arteries of extrm w intrmt elbert, left leg Assessments Date Code Description Provider 01/13/2021 G47.33 Obstructive sleep apnea (adult) (pediatric) Kelly Christianson, N.P. 12/23/2020 I70.202 Unspecified atherosc lerosis of [place] arteries of extremities, left leg Leigh Ann Paige MD 12/23/2020 R19.7 Diarrhea, unspecified Leigh Ann Paige MD 12/23/2020 I25.10 Atherosclerotic hear t disease of [place] coronary artery without angina pectoris Leigh Ann Paige MD 12/23/2020 M19.09 Primary osteoarthritis, other sp ecified site Leigh Ann Paige MD 12/23/2020 E66.01 Morbid (severe) obesity due to e xcess calories Leigh Ann Paige MD 12/07/2020 T82.856A Stenosis of peripheral vascular stent, initial encounter Jose Ryan MD 11/15/2020 I70.202 Unspecified atherosc lerosis of [place] arteries of extremities, left leg Jose Ryan [...] intermittent claudication, left leg Jose Ryan MD Plan of Treatment Future Appointment(s):* 01/16/2022 10:15 am - Kelly Christianson, N.PMinh at [facility] Pulmonary/Thoracic * 03/03/2021 10:00 am - ALEXIA Cole at [facility] Surgery Practice * 02/17/2021 11:45 am - Bakari Valles JR, MD at [facility] 01/13/2021 - Kelly Christianson, N.P.* G47.33 Obstructive sleep apnea (adult) (pediatric) [...] supply order has been sent to the [employer]. * Follow up:* 1. Follow up in one year to reassess CPAP compliance or sooner should problems develop. Functional Status Description No Information Available Mental Status Description No Information Available Referrals Refer to Reason for Referral Status Appt Date Bakari Valles M.D. COLONOSCOPY Scheduled 11/09/2020 [facility] General Surgery [address] [place] [address] [phone]
--- OUTSIDE RECORDS SUMMARY | 2021-02-17 09:28 | CCD | Continuity of Care Document ---
Author Author Venu MAR P.A.-C Organization Unknown Address [address] [place] [address] Phone [phone] Care Team Providers Care Windows Systems Engineer Name Role Phone Alonzo Jeffers M.D. AUTM [phone] Problems Active Problems Provider Date Shuffling gait [...] Available Vital Signs Date Vital Result Comment 01/14/2021 6:16am BP Systolic 116 mmHg BP Diastolic 60 mmHg Heart Rate 56 /min Respiratory Rate 16 /min 10/13/2020 6:34am BP Systolic 122 mmHg BP Diastolic 70 mmHg Heart Rate 60 /min Respiratory Rate 16 /min Results Test Acquired Date Facility Test Result H/L Range Note Vitamin B12 & Folate 10/13/2020 [facility] Vitamin B12 Level 758 pg/mL Normal 1 Folate > 24.0 NG/ML Normal 2 1 VITAMIN B12 NORMAL RANGE NORMAL 247 - 911 PG/ML INDETERMINATE 211 - 246 PG/ML DEFICIENT LESS THAN 211 PG/ML 2 FOLATE NORMAL RANGE NORMAL GREATER THAN 5.4 NG/ML INDETERMINATE 3.4-5.4 NG/ML DEFICIENT LESS THAN 3.4 NG/ML Procedures Date Code Description Status 01/14/2021 36755 Office/Outpatient Established Mo d MDM 30-39 Min Completed 10/13/2020 71135 Office/Outpatient Established Mo d MDM 30-39 Min Completed 07/31/2020 65642 MRI Brain W/O Contrast Completed 07/31/2020 97323 MRI Brain W/O Contrast Completed Medical Devices Description No Information Available Encounters Type Date Location Provider Dx Diagnosis Office Visit 01/14/2021 11:45a Main office - [place] Emily Callahan.A.-C. I73.9 Peripheral vascular disease, unspecified G20 Parkinson's disease R26.89 Other abnormalities of gait and mobility M54.50 Low back pain, unspecified M62.831 Muscle spasm of calf G63 Polyneuropathy in diseases c lassified elsewhere D51.8 Other vitamin B12 deficiency anemias Office Visit 10/13/2020 9:00a Main office - [place] Emily Callahan.A.-C. G20 Parkinson's disease R26.89 Other [...] mias Emily Ambrocio.A.-C. 10/13/2020 G20 Parkinson's disease Diane Callahan-CMinh 10/13/2020 R26.89 Other abnormalities of gait and mobility Niko AmbrocioC. 10/13/2020 M54.5 Low back pain Diane Ambrocio-CMinh 10/13/2020 G63 Polyneuropathy in diseases class ified elsewhere Niko AmbrocioCMinh 10/13/2020 M62.831 Muscle spasm of calf Niko BranchCMinh 10/13/2020 D51.8 Other vitamin B12 deficiency ane mias Diane Ambrocio-CMinh 10/13/2020 I73.9 Peripheral vascular disease, uns pecified Diane Ambrocio-C. 07/31/2020 G20 Parkinson's disease Abdirahman Omaira, M.D. 07/31/2020 G20 Parkinson's disease MRI 07/31/2020 R26.81 Unsteadiness on feet Abdirahman Omaira , M.D. 07/31/2020 R26.81 Unsteadiness on feet MRI 07/31/2020 R47.89 Other speech disturbances Abdirahman Omaira, M.D. 07/31/2020 R47.89 Other speech disturbances MRI Plan of Treatment Future Appointment(s):* 07/15/2021 11:15 am - Randee Mar P.A.-C. at Main office [facility] 01/14/2021 - Randee Mar P.A.-C.* I73.9 Peripheral vascular disease, unspecified* Comments:* Follow up with vascular surgeon. * G20 Parkinson's disease* Comments:* Continue ropinirole. * R26.89 Other abnormalities of gait and mobility* Comments:* Improved. Continue use of cane as needed. * M54.50 Low back pain, unspecified* Comments:* Improved with PT. * M62.831 Muscle spasm of calf* Comments:* Improved. * G63 Polyneuropathy in diseases classified elsewhere* Comments:* Stable. * D51.8 Other vitamin B12 deficiency anemias* Comments:* His level was 758. * Follow up:* 6 months. Functional Status Description No Information Available Mental Status Description No Information Available Referrals Refer to Reason for Referral Status Appt Date Abdirahman Castano M.D. Created [facility] [address] [id number] [phone]
--- OUTSIDE RECORDS SUMMARY | 2021-02-17 09:28 | CCD | Continuity of Care Document ---
Author Author Venu LEAVITT MD Organization Unknown Address [address] [place] [address] [address] [place] [address] Phone [phone] Care Team Providers Care Air Pollution Auditor Name Role Phone Alonzo Jeffers M.D. AUTM [phone] Wade Hurst AUTM [phone] AUTM Unavailable Problems Active Problems Provider Date [...] tab by mouth every day 90tabs Jose Leavitt MD 10/14/2020 Paroxetine HCL 20mg Tablets 1 by mouth every day Unknown Latanoprost 0.005% Solution Instill [...] day Unknown CPAP 12cm marras Unknown Nystatin-Triamcinolone 504622-9.1Unit/GM-% Cream twice a day Unknown Vitamin D High Potency 1000Unit [...] tab by mouth twice a day Unknown History Medications Clopidogrel Bisulfate 75mg Tablets 1 by mouth every day 90tabs Jose Leavitt MD 10/14/2020 - Immunizations CPT Code Status Date Vaccine Lot # [id number] Given 12/21/2010 Influenza Vaccine 3 Years Of Age Or Older (Flulaval) 73782 Given 02/11/2009 Influenza Vaccine 04648 Given 12/27/2007 Influenza Vaccine Vital Signs Date Vital Result Comment 12/23/2020 3:10pm BP Systolic 160 mmHg BP Diastolic 71 mmHg Body Temperature 98.4 F Height 65 inches 5'5" Weight 208.00 lb BMI (Body Mass Index) 34.6 kg/m2 [place] Body Weight 136 lb Weight 94.349 kg BSA (Body Surface Area) 2.01 m2 11/15/2020 1:29pm BP Systolic 160 mmHg BP Diastolic 70 mmHg Body Temperature 98.3 F Height 65 inches 5'5" Weight 207.00 lb BMI (Body Mass Index) 34.4 kg/m2 [place] Body Weight 136 lb Weight 93.895 kg BSA (Body Surface Area) 2.01 m2 Results Test Acquired Date Facility Test Result H/L Range Note Complete Blood Count 12/07/2020 [facility] Main Lab 0 [place], [place] [address] [phone] White Blood Count 6.7 10 Normal 4.0-10.0 [...] 0.0 % Normal 0-0 Prothrombin Time/Inr 12/07/2020 [facility] Main Lab 0 [place], [place] [address] [phone] Prothrombin Time 13.0 seconds Normal 12.7-14.5 Inr 0.94 Normal 1 Basic Metabolic Profile 12/07/2020 [facility] Main Lab 0 [place] [address] [phone] Glucose, Fasting 114 mg/dL High 70-100 Blood [...] Little GFR Left ESRD GFR <15 on OCCUPATIONAL THERAPY DIRECTOR Procedures Date Code Description Status 12/23/2020 77072 Office/Outpatient Established Mo d MDM 30-39 Min Completed 12/07/2020 99886 Revascularization,Endovascular W /Atherectomy, Inc Angioplasty Completed 11/15/2020 97868 Office/Outpatient Established Mo d MDM 30-39 Min Completed 11/15/2020 93917 Office/Outpatient Established Lo w MDM 20-29 Min Completed 10/14/2020 15919 Office/Outpatient Established Lo w MDM 20-29 Min Completed Medical Devices Description No Information Available Encounters Type Date Location Provider Dx Diagnosis Office Visit 12/23/2020 3:15p [facility] Rat estela Paige MD I70.202 Unsp athscl [place] arteries of extremities, left leg R19.7 Diarrhea, unspecified 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 M19.09 Primary osteoarthritis, othe r specified site E66.01 Morbid (severe) obesity due to excess calories Office Visit 11/15/2020 1:15p [facility] ALEXIA Barahona R19.7 Diarrhea, unspecified K57.30 Dvrtclos of lg int w/o perfo ration or abscess w/o bleeding K64.9 Unspecified hemorrhoids I70.213 Athscl [place] arteries of ex trm w intrmt elbert, bi legs Office Visit 11/15/2020 1:45p [facility] Jose valiente MD I70.202 Unsp athscl [place] arteries of extremiti es, left leg Office Visit 10/14/2020 11:00a [facility] Jose valiente MD I70.212 Athscl [place] arteries of extrm w intrmt elbert, left leg Assessments Date Code Description Provider 12/23/2020 I70.202 Unspecified atherosc lerosis of [place] arteries of extremities, left leg Leigh Ann Paige MD 12/23/2020 R19.7 Diarrhea, unspecified Leigh Ann Paige MD 12/23/2020 I25.10 Atherosclerotic hear t disease of [place] coronary artery without angina pectoris Leigh Ann Paige MD 12/23/2020 M19.09 Primary osteoarthritis, other sp ecified site Leigh Ann Paige MD 12/23/2020 E66.01 Morbid (severe) obesity due to e xcess calories Leigh Ann Paige MD 12/07/2020 T82.856A Stenosis of peripheral vascular stent, initial encounter Jose Leavitt MD 11/15/2020 I70.202 Unspecified atherosc lerosis of [place] arteries of extremities, left leg Jose Leavitt MD 11/15/2020 R19.7 Diarrhea, unspecified ALEXIA Pollack 11/15/2020 K57.30 Diverticulosis of la rge intestine without perforation or abscess without bleeding ALEXIA Cole 11/15/2020 K64.9 Unspecified hemorrhoids ALEXIA Cisneros 11/15/2020 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 at [facility] Pulmonary/Thoracic 12/23/2020 - Leigh Ann Paige MD* I70.202 Unspecified atherosclerosis of [place] arteries of extremities, left leg* Comments:* S/p [...] 1 month post procedure. Follow-up with Dr. Leavitt in 1 to 2 weeks-to discuss interruption of antiplatelet therapy.My impression and plan were discussed with the patient and his . They understand and agree to the plan of care. Message also conveyed to general surgery team. * R19.7 Diarrhea, unspecified* Comments:* Since May 2020-being evaluated by general surgery, for colonoscopy exam * I25.10 Atherosclerotic heart disease of [place] coronary artery without angina pectoris* Comments:* S/p CABG * M19.09 Primary osteoarthritis, other specified site* Comments:* Chronic * E66.01 Morbid (severe) obesity due to excess calories* Comments:* Diet and exercise: For weight loss discussed Functional Status Description No Information Available Mental Status Description No Information Available Referrals Refer to Reason for Referral Status Appt Date Bakari Valles M.D. COLONOSCOPY Scheduled 11/09/2020 [facility] General Surgery [address] [address] [phone]
--- OUTSIDE RECORDS SUMMARY | 2021-02-17 09:28 | CCD | Continuity of Care Document ---
Author Author Venu CHRISTIANSON N.P Minh Organization Unknown Address [address] [place] [address] Phone [phone] Care Team Providers Care Certified Scrum Master Name Role Phone Alonzo Jeffers M.D. AUTM [phone] Wade Hurst AUTM [phone] AUTM Unavailable Problems Active Problems Provider Date [...] day 90tabs Jose Ryan MD 10/14/2020 Nystatin-Triamcinolone 050650-3.1Unit/GM-% Cream twice a day Unknown Oxybutynin Chloride ER 5mg Tablets ER 24HR 1 by mouth every day Unknown 000 Cyanocobalamin 1000mcg/ML Solution 1 time per month Unknown Spironolactone 25mg Tablets 1 every day Unknown Krill Oil Hunter-3 500mg Capsules 1 every day Unknown Latanoprost [...] 3 Years Of Age Or Older (Flulaval) 73733 Given 02/11/2009 Influenza Vaccine 77679 Given 12/27/2007 Influenza Vaccine Vital Signs Date Vital Result Comment 01/13/2021 2:35pm BP Systolic 140 mmHg BP Diastolic 60 mmHg Heart Rate 59 /min O2 % BldC Oximetry 98 % Height 65 inches 5'5" Weight 211.00 lb BMI (Body Mass Index) 35.1 kg/m2 [place] Body Weight 136 lb Weight 95.710 kg BSA (Body Surface Area) 2.02 m2 12/23/2020 3:10pm BP Systolic 160 mmHg BP Diastolic 71 mmHg Body Temperature 98.4 F Height 65 inches 5'5" Weight 208.00 lb BMI (Body Mass Index) 34.6 kg/m2 [place] Body Weight 136 lb Weight 94.349 kg BSA (Body Surface Area) 2.01 m2 Results Test Acquired Date Facility Test Result H/L Range Note Complete Blood Count 12/07/2020 [facility] Main Lab 0 [place], [place] [address] [phone] White Blood Count 6.7 10 Normal 4.0-10.0 [...] % Normal 0-0 Prothrombin Time/Inr 12/07/2020 [facility] Main Lab 0 [place] [address] [phone] Prothrombin Time 13.0 seconds Normal 12.7-14.5 Inr 0.94 Normal 1 Basic Metabolic Profile 12/07/2020 [facility] Main Lab [address] [place] [address] [phone] Glucose, Fasting 114 mg/dL High 70-100 Blood [...] Little GFR Left ESRD GFR <15 on BUSINESS OFFICE MANAGER Procedures Date Code Description Status 01/13/2021 97357 Office/Outpatient Established Lo w MDM 20-29 Min Completed 12/23/2020 57393 Office/Outpatient Established Mo d MDM 30-39 Min Completed 12/07/2020 66842 Revascularization,Endovascular W /Atherectomy, Inc Angioplasty Completed 11/15/2020 28726 Office/Outpatient Established Mo d MDM 30-39 Min Completed 11/15/2020 08408 Office/Outpatient Established Lo w MDM 20-29 Min Completed 10/14/2020 10575 Office/Outpatient Established Lo w MDM 20-29 Min Completed Medical Devices Description No Information Available Encounters Type Date Location Provider Dx Diagnosis Office Visit 01/13/2021 2:30p [facility] Pulmonary/Thoracic Rosa Isela Christianson, N.P. G47.33 Obstructive sleep apnea (adult) (pediatr ic) Office Visit 12/23/2020 3:15p [facility] Joaquim Paige MD I70.202 Unsp athscl [place] arteries of extremities, left leg R19.7 Diarrhea, unspecified 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 M19.09 Primary osteoarthritis, othe r specified site E66.01 Morbid (severe) obesity due to excess calories Office Visit 11/15/2020 1:15p [facility] ALEXIA Barahona R19.7 Diarrhea, unspecified K57.30 Dvrtclos of lg int w/o perfo ration or abscess w/o bleeding K64.9 Unspecified hemorrhoids I70.213 Athscl [place] arteries of ex trm w intrmt [place]bert, bi legs Office Visit 11/15/2020 1:45p [facility] Jose valiente MD I70.202 Unsp athscl [place] arteries of extremiti es, left leg Office Visit 10/14/2020 11:00a [facility] Jose valiente MD I70.212 Athscl [place] arteries of extrm w intrmt elbert, left leg Assessments Date Code Description Provider 01/13/2021 G47.33 Obstructive sleep apnea (adult) (pediatric) Kelly Christianson, N.P. 12/23/2020 I70.202 Unspecified atherosc lerosis of [place] arteries of extremities, left leg Leigh Ann Paige MD 12/23/2020 R19.7 Diarrhea, unspecified Leigh Ann Paige MD 12/23/2020 I25.10 Atherosclerotic hear t disease of [place] coronary artery without angina pectoris Leigh Ann Paige MD 12/23/2020 M19.09 Primary osteoarthritis, other sp ecified site Leigh Ann Paige MD 12/23/2020 E66.01 Morbid (severe) obesity due to e xcess calories Leigh Ann Paige MD 12/07/2020 T82.856A Stenosis of peripheral vascular stent, initial encounter Jose Ryan MD 11/15/2020 I70.202 Unspecified atherosc lerosis of [place] arteries of extremities, left leg Jose Ryan [...] 10:15 am - Kelly Christianson, N.PMinh at [facility] Pulmonary/Thoracic * 03/03/2021 10:00 am - ALEXIA Cole at [facility] * 02/17/2021 11:45 am - Bakari Valles JR, MD at [facility] 01/13/2021 - Kelly Christianson, N.P.* G47.33 [...] supply order has been sent to the [facility]. * Follow up:* 1. Follow up in one year to reassess CPAP compliance or sooner should problems develop. Functional Status Description No Information Available Mental Status Description No Information Available Referrals Refer to Reason for Referral Status Appt Date Bakari Valles M.D. COLONOSCOPY Scheduled 11/09/2020 [facility] General Surgery [address] [place] [address] [phone]
--- OUTSIDE RECORDS SUMMARY | 2021-02-17 09:29 | CCD | Continuity of Care Document ---
Author Author Venu TRIMBLE MD Organization Unknown Address [address] [facility] [address] [place] [address] Phone [phone] Care Team Providers Care Engine Room Operator Name Role Phone Alonzo Jeffers M.D. AUTM [phone] Wade Hurst AUTM [phone] AUTM Unavailable Problems Active Problems Provider Date [...] day Unknown CPAP 12cm marras Unknown Nystatin-Triamcinolone 882173-8.1Unit/GM-% Cream twice a day Unknown Paroxetine HCL [...] 3 Years Of Age Or Older (Flulaval) 48138 Given 02/11/2009 Influenza Vaccine 46581 Given 12/27/2007 Influenza Vaccine Vital Signs Date Vital Result Comment 12/23/2020 3:10pm BP Systolic 160 mmHg BP Diastolic 71 mmHg Body Temperature 98.4 F Height 65 inches 5'5" Weight 208.00 lb BMI (Body Mass Index) 34.6 kg/m2 [place] Body Weight 136 lb Weight 94.349 kg BSA (Body Surface Area) 2.01 m2 11/15/2020 1:29pm BP Systolic 160 mmHg BP Diastolic 70 mmHg Body Temperature 98.3 F Height 65 inches 5'5" Weight 207.00 lb BMI (Body Mass Index) 34.4 kg/m2 [place] Body Weight 136 lb Weight 93.895 kg BSA (Body Surface Area) 2.01 m2 Results Test Acquired Date Facility Test Result H/L Range Note Complete Blood Count 12/07/2020 [facility] Main Lab 0 [place], [place] [address] [phone] White Blood Count 6.7 10 Normal 4.0-10.0 [...] 0.0 % Normal 0-0 Prothrombin Time/Inr 12/07/2020 [facility] Main Lab [address] [place], [place] [address] [phone] Prothrombin Time 13.0 seconds Normal 12.7-14.5 Inr 0.94 Normal 1 Basic Metabolic Profile 12/07/2020 [facility] Main Lab [address] [place], [place] [address] [phone] Glucose, Fasting 114 mg/dL High 70-100 Blood [...] Little GFR Left ESRD GFR <15 on GOLF [employer]ALL WINDER Procedures Date Code Description Status 12/23/2020 19606 Office/Outpatient Established Mo d MDM 30-39 Min Completed 11/15/2020 96653 Office/Outpatient Established Mo d MDM 30-39 Min Completed 11/15/2020 82231 Office/Outpatient Established Lo w MDM 20-29 Min Completed 10/14/2020 48695 Office/Outpatient Established Lo w MDM 20-29 Min Completed 06/28/2020 74458 Office/Outpatient Established Lo w MDM 20-29 Min Completed Medical Devices Description No Information Available Encounters Type Date Location Provider Dx Diagnosis Office Visit 12/23/2020 3:15p [facility] Rat estela Trimble MD I70.202 Unsp athscl [place] arteries of extremities, left leg R19.7 Diarrhea, unspecified 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 M19.09 Primary osteoarthritis, othe r specified site E66.01 Morbid (severe) obesity due to excess calories Office Visit 11/15/2020 1:15p [facility] ALEXIA Barahona R19.7 Diarrhea, unspecified K57.30 Dvrtclos of lg int w/o perfo ration or abscess w/o bleeding K64.9 Unspecified hemorrhoids I70.213 Athscl [place] arteries of ex trm w intrmt elbert, bi legs Office Visit 11/15/2020 1:45p [facility] Jose valiente MD I70.202 Unsp athscl [place] arteries of extremiti es, left leg Office Visit 10/14/2020 11:00a [facility] Jose valiente MD I70.212 Athscl [place] arteries of extrm w intrmt elbert, left leg Office Visit 06/28/2020 10:15a [facility] ALEXIA Barahona I70.213 Athscl [place] arteries of extrm w intrmt [place]bert, bi legs Assessments Date Code Description Provider 12/23/2020 I70.202 Unspecified atherosc lerosis of [place] arteries of extremities, left leg Leigh Ann Trimble MD 12/23/2020 R19.7 Diarrhea, unspecified Leigh Ann Trimble MD 12/23/2020 I25.10 Atherosclerotic hear t disease of [place] coronary artery without angina pectoris Leigh Ann Trimble MD 12/23/2020 M19.09 Primary osteoarthritis, other sp ecified site Leigh Ann Trimble MD 12/23/2020 E66.01 Morbid (severe) obesity due to e xcess calories Leigh Ann Trimble MD 11/15/2020 I70.202 Unspecified atherosc lerosis of [place] arteries of extremities, left leg Jose Ryan MD 11/15/2020 R19.7 Diarrhea, unspecified ALEXIA Pollack 11/15/2020 K57.30 Diverticulosis of la rge intestine without perforation or abscess without bleeding ALEXIA Cole 11/15/2020 K64.9 Unspecified hemorrhoids ALEIXA Cisneros 11/15/2020 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, bilateral legs ALEXIA Cole 10/14/2020 I70.212 Atherosclerosis of n ative arteries of extremities with intermittent claudication, left leg Jose Ryan MD 06/28/2020 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 at [facility] Pulmonary/Thoracic 12/23/2020 - Leigh Ann Trimble MD* I70.202 Unspecified atherosclerosis of [place] arteries of extremities, left leg* Comments:* S/p [...] exam * I25.10 Atherosclerotic heart disease of [place] coronary artery without angina pectoris* Comments:* S/p CABG * M19.09 Primary osteoarthritis, other specified site* Comments:* Chronic * E66.01 Morbid (severe) obesity due to excess calories* Comments:* Diet and exercise: For weight loss discussed Functional Status Description No Information Available Mental Status Description No Information Available Referrals Refer to Reason for Referral Status Appt Date Bakari Valles M.D. COLONOSCOPY Scheduled 11/09/2020 [facility] General Surgery [address] [id number] [phone]
--- OUTSIDE RECORDS SUMMARY | 2021-02-17 09:29 | CCD | Continuity of Care Document ---
Author Author Venu TRIMBLE MD Organization Unknown Address [address] [facility] [address] [place] [address] Phone [phone] Care Team Providers Care Road Machine Operator Name Role Phone Alonzo Jeffers M.D. AUTM [phone] Wade Hurst AUTM [phone] AUTM Unavailable Problems Active Problems Provider Date [...] day Unknown CPAP 12cm marras Unknown Nystatin-Triamcinolone 617884-8.1Unit/GM-% Cream twice a day Unknown Paroxetine HCL [...] 3 Years Of Age Or Older (Flulaval) 76972 Given 02/11/2009 Influenza Vaccine 59782 Given 12/27/2007 Influenza Vaccine Vital Signs Date Vital Result Comment 12/23/2020 3:10pm BP Systolic 160 mmHg BP Diastolic 71 mmHg Body Temperature 98.4 F Height 65 inches 5'5" Weight 208.00 lb BMI (Body Mass Index) 34.6 kg/m2 [place] Body Weight 136 lb Weight 94.349 kg BSA (Body Surface Area) 2.01 m2 11/15/2020 1:29pm BP Systolic 160 mmHg BP Diastolic 70 mmHg Body Temperature 98.3 F Height 65 inches 5'5" Weight 207.00 lb BMI (Body Mass Index) 34.4 kg/m2 [place] Body Weight 136 lb Weight 93.895 kg BSA (Body Surface Area) 2.01 m2 Results Test Acquired Date Facility Test Result H/L Range Note Complete Blood Count 12/07/2020 [facility] Main Lab [address] [place], [place] [id number] [phone] White Blood Count 6.7 10 Normal 4.0-10.0 [...] 0.0 % Normal 0-0 Prothrombin Time/Inr 12/07/2020 [facility] Main Lab [address] [place], [place] [id number] [phone] Prothrombin Time 13.0 seconds Normal 12.7-14.5 Inr 0.94 Normal 1 Basic Metabolic Profile 12/07/2020 [facility] Main Lab [address] [place], [place] [id number] [phone] Glucose, Fasting 114 mg/dL High 70-100 Blood [...] Little GFR Left ESRD GFR <15 on [employer] Procedures Date Code Description Status 12/23/2020 54079 Office/Outpatient Established Mo d MDM 30-39 Min Completed 11/15/2020 43965 Office/Outpatient Established Mo d MDM 30-39 Min Completed 11/15/2020 58638 Office/Outpatient Established Lo w MDM 20-29 Min Completed 10/14/2020 83138 Office/Outpatient Established Lo w MDM 20-29 Min Completed 06/28/2020 60966 Office/Outpatient Established Lo w MDM 20-29 Min Completed Medical Devices Description No Information Available Encounters Type Date Location Provider Dx Diagnosis Office Visit 12/23/2020 3:15p [facility] Rat estela Trimble MD 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, left leg R19.7 Diarrhea, unspecified 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 M19.09 Primary osteoarthritis, othe r specified site E66.01 Morbid (severe) obesity due to excess calories Office Visit 11/15/2020 1:15p [facility] Practice ALEXIA Barahona R19.7 Diarrhea, unspecified K57.30 Dvrtclos of lg int w/o perfo ration or abscess w/o bleeding K64.9 Unspecified hemorrhoids I70.213 Athscl [place] arteries of ex trm w intrmt elbert, bi legs Office Visit 11/15/2020 1:45p [facility] Jose valiente MD I70.202 Unsp athscl [place] arteries of extremiti es, left leg Office Visit 10/14/2020 11:00a [facility] Practice Jose valiente MD I70.212 Athscl [place] arteries of extrm w intrmt elbert, left leg Office Visit 06/28/2020 10:15a [facility] Practice ALEXIA Barahona I70.213 Athscl [place] arteries of extrm w intrmt elbert, bi legs Assessments Date Code Description Provider 12/23/2020 I70.202 Unspecified atherosc lerosis of [place] arteries of extremities, left leg Leigh Ann Trimble MD 12/23/2020 R19.7 Diarrhea, unspecified Leigh Ann Trimble MD 12/23/2020 I25.10 Atherosclerotic hear t disease of [place] coronary artery without angina pectoris Leigh Ann Trimble MD 12/23/2020 M19.09 Primary osteoarthritis, other sp ecified site Leigh Ann Trimble MD 12/23/2020 E66.01 Morbid (severe) obesity due to e xcess calories Leigh Ann Trimble MD 11/15/2020 I70.202 Unspecified atherosc lerosis of [place] arteries of extremities, left leg Jose Ryan [...] 11:00 am - Kelly Christianson N.P. at [facility] Pulmonary/Thoracic 12/23/2020 - Leigh Ann Trimble MD* I70.202 Unspecified atherosclerosis of [place] arteries of extremities, left leg* Comments:* S/p [...] exam * I25.10 Atherosclerotic heart disease of [place] coronary artery without angina pectoris* Comments:* S/p CABG * M19.09 Primary osteoarthritis, other specified site* Comments:* Chronic * E66.01 Morbid (severe) obesity due to excess calories* Comments:* Diet and exercise: For weight loss discussed Functional Status Description No Information Available Mental Status Description No Information Available Referrals Refer to Reason for Referral Status Appt Date Bakari Valles M.D. COLONOSCOPY Scheduled 11/09/2020 [facility] General Surgery [address] [id number] [phone]
--- OUTSIDE RECORDS SUMMARY | 2021-02-17 09:29 | CCD | Continuity of Care Document ---
Author Author Lab Schedule, Venu Grady Organization Unknown Address [address] [address] Phone Unavailable Care Team Providers Care Paper Reclaiming Machine Operator Name Role Phone Alonzo Jeffers MD AUTM [phone] Gabo Briones O.D. AUTM [phone] Anca Castano AUTM [phone] [facility] AUTM [phone] Fran Payan MD AUTM [phone] Problems Active Problems Provider Date Osteoarthritis Onset: [...] Use Start: Unknown Patient has never smoked Allergies, Adverse Reactions, Alerts Description No Known Drug Allergies Medications Active Medications SIG Qnty Indications Ordering Provide r Date Ropinirole HCL 1mg Tablets take two tablets by mouth t.i.d. (Rx by neurology, bowen meraz) 90tabs Alonzo Jeffers M.D. 12/05/2018 Freestyle Lite Test Strips test twice a day E11.9 100units Alonzo Jeffers M.D. 05/27/2018 Vitamin D High Potency 1000Unit Ca psules 1 by mouth every day E78.5 Alonzo Jeffers M.D. 12/04/19 18 Paroxetine HCL 20mg Tablets take one tablet by mouth every day 90tabs F34.1 Alonzo Jeffers M.D. 0 04/23/2017 BD Uf II Short .5cc 31G Use Once Daily as Directed 200units Tiny Jones DO 10/31/2016 Freestyle Lancets Misc test twice a day e11.9 200units Alonzo Jeffers M.D. 10/24/2016 Nystatin-Triamcinolone 405470-3.1Unit/GM-% Cream apply small amount to effected area twice a day (only until resolved) 15gm Alonzo Jeffers M.D. 05/25/[address] 1 by mouth every day failed on omeprazole 90caps K21.9 Alonzo Jeffers M.D. Humulin R 100Unit/ML Solution inject 2-8 units per sliding scale 9ml Alonzo Jeffers M.D. 02/[address] 1 by mouth every day Alonzo Jeffers M.D. 11/29/2015 BD Insulin Syringe Ultrafine II/Short/0. 5ML/31G X 5/16" 31G X 5/16" 0.5 ML Misc twice daily 200units Elizabeth Jones, 05/28/2015 Stool Softener 100mg Capsules 1 by mouth bid Alonzo Jeffers M.D. 05/28/2015 Hydrochlorothiazide 25mg Tablets 1 by mouth every day 90talayo Jeffers M.D. 11/27/2014 Atorvastatin Calcium 80mg Tablets take one tablet by mouth once daily, 90tabs Alonzo Jeffers M.D. 12/15/2013 Lantus 100Unit/ML Solution 30 units subcutaneously daily, 30units Alonzo Jeffers M.D. 11/28 Ferrous Sulfate 324(65Fe) mg Table ts DR 1 tablet, 2 times per day, 60tabs Alonzo Jeffers M.D. Metformin HCL 1000mg Tablets 1 tablet, 2 times per day, 180tabs Alonzo Jeffers M.D. Avapro 300mg Tablets 1 tablet, 1 time per day 90talayo Jeffers M.D. Istalol 0.5% Solution one drop each eye in am Gabo Briones O.D. Amlodipine Besylate 10mg Tablets 1 tablet, 1 time per day, 90estela Richey MD Fluorouracil 0.5% Cream Unknown Ketoconazole 2% Shampoo use as body wash then 3 times weekly Unknown Clopidogrel Bisulfate 75mg Tablets 1 by mouth every day- [place] Unknown Administration Of Flu Vaccine Inj ection Unknown Medications Administered in Office Medication SIG Qnty Indications Ordering Provider Date Covid-19 vaccine, Unspecified Inj ection Unknown 05/10/2020 Covid-19 vaccine, Unspecified Inj ection Unknown 04/19/2020 Administration Of Flu Vaccine Inj ection Alonzo Jeffers M.D. 12/09/2019 Administration Of Flu Vaccine Inj ection Alonzo Jeffers M.D. 01/13/2016 Immunizations CPT Code Status Date Vaccine Lot # [id number] Given 12/09/2019 Influenza Vaccin e Quadrivalent Preser/Antibiotic Free Im Use [id number] 72866 Given 04/04/2019 Shingrix Zoster Vaccine (HZV), Recombinant, Subunit, Adjuvanted 39990 Given 01/23/2019 Shingrix Zoster Vaccine (HZV), Recombinant, Subunit, Adjuvanted U-Tetan Given 12/30/2017 Tetanus,Unspecified U-Flu Given 12/18/2017 Influenza,Unspecified U-PneuC Given 10/26/2016 Prevnar 13 [id number] Given 01/13/2016 Fluvirin Virus Vaccine 65835 01 17664 Given 12/30/2013 Influenza Virus Vaccine 56165 Given 01/28/2013 Influenza Virus Vaccine 33864 Given 01/03/2012 Influenza Virus Vaccine 44592 Given 03/01/2011 Influenza Virus Vaccine 84778 Given 05/16/2010 Pneumovax 23 39155 Given 04/19/2010 Pneumovax 23 21657 Given 03/21/2010 Adacel- Tetanus Diphtheria P ertussis 39289 Given 12/17/2009 Influenza Virus Vaccine 68939 Refused 05/20/2012 Zoster Vaccine Vital Signs Date Vital Result Comment 10/26/2020 2:59pm BP Systolic 140 mmHg BP Diastolic 60 mmHg Heart Rate 70 /min Height 64 inches 5'4" Weight 209.00 lb BMI (Body Mass Index) 35.9 kg/m2 06/07/2020 10:55am BP Systolic 128 mmHg BP Diastolic 66 mmHg Height 64 inches 5'4" Weight 213.12 lb BMI (Body Mass Index) 36.6 kg/m2 Results Test Acquired Date Facility Test Result H/L Range Note Complete Blood Count 12/07/2020 [facility] enter [address] [place], [place] [id number] [phone] White Blood Count 6.7 10 Normal 4.0-10.0 [...] 0.0 % Normal 0-0 Prothrombin Time/Inr 12/07/2020 [facility] enter [address] [place], [place] [id number] [phone] Prothrombin Time 13.0 seconds Normal 12.7-14.5 Inr 0.94 Normal 1 Basic Metabolic Profile 12/07/2020 [facility] [address] [place], [place] [id number] [phone] Glucose, Fasting 114 mg/dL High 70-100 Blood [...] 8-16 Calcium Level 9.5 mg/dL Normal 8.8-10.2 Gastrointestinal (GI) Panel 10/28/2020 [facility] [address] [place] [address] [phone] Gastrointestinal (GI) Panel This Gastrointes <SEE NOTE > 3 Complete Blood Count 10/26/2020 [facility] [employer] leela krueger Wood Die Maker: [place] [address] [phone] WBC 6.0 x10*3/UL 4.1 - 10.9 RBC [...] 2.0 - 7.8 Laboratory test finding 10/26/2020 [facility] [employer] sarika pc Wood Die Maker: [place] [address] [phone] Magnesium 1.8 mg/dL 1.8 - 2.4 Comprehensive Chem Profile 10/26/2020 [facility] leela Rangel Wood Die Maker: [place] [address] [phone] Glucose 158 mg/dL High 74 - 99 4 BUN 26 mg/dL High 7 - 18 [...] Low >60 GFR 60 mL/min Low >60 5 Vitamin B12 & Folate 10/13/2020 [facility] enter [address] [place] [address] [phone] Vitamin B12 Level 758 pg/mL Normal 6 Folate > 24.0 NG/ML Normal 7 Complete Blood Count 07/14/2020 [facility] enter [address] [place] [address] [phone] White Blood Count 6.9 10 Normal 4.0-10.0 Red Blood Count 4.61 10 Normal 4.30-6.10 Hemoglobin 12.7 g/dL Low 13.5-17.5 Hematocrit 39.1 % Low 42.0-52.0 Mean Corpuscular Volume 84.8 fl Normal 80.0-96.0 Mean Corpuscular Hemoglobin 27.5 pg Normal 27.0-33.0 Mean Corpuscular HGB Conc 32.5 g/dL Normal 32.0-36.5 Red Cell Distribution Width 14.6 % High 11.5-14.5 Platelet Count, Automated 267 10 Normal 150-450 Nucleated Red Blood Cell % 0.0 % Normal 0-0 Basic Metabolic Profile 07/14/2020 [facility] [address] [place] [address] [phone] Glucose, Fasting 74 mg/dL Normal 70-100 Blood Urea Nitrogen 34 mg/dL High 7-18 Creatinine For GFR 0.98 mg/dL Normal 0.70-1.30 Glomerular Filtration Rate > 60.0 Normal >42 8 Sodium Level 134 mEq/L Low 136-145 Potassium Serum 5.4 mEq/L High 3.5-5.1 9 Chloride Level 102 mEq/L Normal 98-107 Carbon Dioxide Level 27 mEq/L Normal 21-32 Anion Gap 5 mEq/L Low 8-16 Calcium Level 10.4 mg/dL High 8.8-10.2 1 THERAPUTIC HUMAN INR VALUES INDICATIONS [...] Little GFR Left ESRD GFR <15 on CONSTRUCTION CREW MEMBER 3 This Gastrointestinal PCR Pa harrison detects the [...] infection. NEGATIVE by MULTIPLEXED NUCLEIC ACID PCR 4 100-125 mg/dL PRE-DIABET ES/FASTING >126 mg/dL DIABETES/FASTING 5 CHRONIC KIDNEY DISEASE STAGI NG PER NKF STAGE I & II GFR >= 60 NORMAL TO MILDLY DECREASED STAGE III GFR 30-59 MODERATELY DECREASED STAGE IV GFR 15-29 SEVERELY DECREASED STAGE V GFR <15 VERY LITTLE GFR LEFT ESRD GFR <15 ON CONSTRUCTION CREW MEMBER 6 VITAMIN B12 NORMAL RANGE NORMAL 247 - 911 PG/ML INDETERMINATE 211 - 246 PG/ML DEFICIENT LESS THAN 211 PG/ML 7 FOLATE NORMAL RANGE NORMAL GREATER THAN 5.4 NG/ML INDETERMINATE 3.4-5.4 NG/ML DEFICIENT LESS THAN 3.4 NG/ML 8 Units are mL/min/1.73 m2 Chronic Kidney Disease Staging per NKF: Stage I & II GFR >=60 Normal to Mildly Decreased Stage III GFR 30-59 Moderately Decreased Stage IV GFR 15-29 Severely Decreased Stage V GFR <15 Very Little GFR Left ESRD GFR <15 on CONSTRUCTION [employer] MEMBER 9 Testing was performed on a S LIGHTLY hemolyzed specimen. Suggest recollection of specimen for more accurate test results. Procedures Date Code Description Status 10/26/2020 06817 Office/Outpatient Established Mo d MDM 30-39 Min Completed 04/06/2020 [id number] Diabetic Retinal Eye Exam [facility] 03/24/2019 [id number] Diabetic Retinal Eye Exam [facility] 02/12/2018 [id number] Diabetic Retinal Eye Exam [facility] Medical Devices Description No Information Available Encounters Type Date Location Provider Dx Diagnosis Office Visit 10/26/2020 3:00p [facility] Bob ALEXIA Delgado JR E11.9 Type 2 diabetes mellitus wit hout complications R19.7 Diarrhea, unspecified Assessments Date Code Description Provider 10/26/2020 E11.9 Type 2 diabetes mellitus without complications ALEXIA Zepeda JR 10/26/2020 R19.7 Diarrhea, unspecified ALEXIA Person JR Plan of Treatment Future Appointment(s):* 12/20/2020 10:30 am - Alonzo Jeffers M.D. at [facility] 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 Hyperlipidemia: Good results on present dose of Lipitor, will continue and monitor.2. Hypertension: Controlled on present regimen, will continue and monitor.3. Type 2 diabetes mellitus without complications: Controlled with HgbA1c of 6.8. Goal is below 7. JULIO is abnormal. We discussed end organ damage and optimizing this as well as avoiding low blood sugars. 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 We will monitor.5. Anemia: His hemoglobin runs in the 11.5 range, this could be due to recent surgery and on Plavix. Platelets are normal. Continue iron supplement. 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 Sanders. We will monitor. 7. GERD: He does require Nexium for symptom control. Will continue and monitor. 8. Dysthymic disorder: Doing well present regimen, will continue and monitor.9. Pa rksadi's disease: Continue Requip. He is following with [facility] at [facility] and will continue appropriate follow up.10. Elevated prostate specific antigen [PSA]: There was mild elevation when last checked. He saw Urology at [facility] last year in August and we will obtain the reports. He will continue to follow up with Urology at [facility] appropriately. We will monitor.11. Candidal cheilitis: Patient will use nystatin-triamcinolone as discussed to his mouth.12. Dry mouth: He will use Biotene mouth wash and will avoid alcohol-containing mouth wash.13. PVD: Doing well after surgery by Dr. Kramer, on Plavix for 60 days and will follow up appropriately.Ongoing cares: I am going to see him again in 6 months with CMP, lipids, TSH, HgbA1c and CBC. If he has new problems or issues sooner he will let us know. Functional Status Description No Information Available Mental Status Description No Information Available Referrals Refer to Reason for Referral Status Appt Date Bakari Valles JR, MD CONSULT FOR SCREENING COLONO SCOPY DX: PERSISTENT DIARRHEA Patient Notified 11/09/2020 [facility] General Surgery [address] [place] [address] [phone]
--- OUTSIDE RECORDS SUMMARY | 2021-02-17 09:29 | CCD | Continuity of Care Document ---
Author Author Venu KIRBY M.D. Organization Unknown Address [address] [facility] [address] [place] [address] Phone [phone] Care Team Providers Care Plunger Shovel Operator Name Role Phone Alonzo Kirby MD AUTM [phone] Gabo Briones O.D. AUTM [phone] Anca Castano AUTM [phone] [facility] AUTM Fran Payan MD AUTM [phone] Problems Active Problems Provider Date Osteoarthritis Onset: [...] e11.9 200units Alonzo Kirby M.D. 10/24/2016 Nystatin-Triamcinolone 784135-7.1Unit/GM-% Cream apply small amount to effected area [...] CPT Code Status Date Vaccine Lot # 46794 Given 12/20/2020 Influenza Vaccin e Quadrivalent Preser/Antibiotic Free Im Use [id number] 53264 Given 12/09/2019 Influenza Vaccin e Quadrivalent Preser/Antibiotic Free Im Use 750813 20898 Given 04/04/2019 Shingrix Zoster Vaccine (HZV), Recombinant, Subunit, Adjuvanted 60812 Given 01/23/2019 Shingrix Zoster Vaccine (HZV), Recombinant, Subunit, Adjuvanted U-Tetan Given 12/30/2017 Tetanus,Unspecified U-Flu Given 12/18/2017 Influenza,Unspecified U-PneuC Given 10/26/2016 Prevnar 13 [id number] Given 01/13/2016 Fluvirin Virus Vaccine 07535 01 80870 Given 12/30/2013 Influenza Virus Vaccine 11288 Given 01/28/2013 Influenza Virus Vaccine 36337 Given 01/03/2012 Influenza Virus Vaccine 15483 Given 03/01/2011 Influenza Virus Vaccine 44205 Given 05/16/2010 Pneumovax 23 26632 Given 04/19/2010 Pneumovax 23 31279 Given 03/21/2010 Adacel- Tetanus Diphtheria P ertussis 21542 Given 12/17/2009 Influenza Virus Vaccine 17817 Refused 05/20/2012 Zoster Vaccine Vital Signs Date [...] Result H/L Range Note Complete Blood Count 12/14/2020 [facility] Community Planning Technician: Dr [place] [address] [phone] WBC 5.6 x10*3/UL 4.1 - 10.9 RBC [...] 2.0 - 7.8 Comprehensive Chem Profile 12/14/2020 [facility] Community Planning Technician: Dr Christ[place] [address] [phone] Glucose 112 mg/dL High 74 - 99 1 BUN 17 mg/dL 7 - 18 Creatinine [...] Low >60 GFR >= 60 mL/min >60 2 Lipid Profile 12/14/2020 [facility] , Community Planning Technician: Dr Christo Richey [place], [place] [id number] [phone] Cholesterol 133 mg/dL 131 - 200 Triglycerides 167 mg/dL High 30 - 150 HDL Cholesterol 63 mg/dL High 35 - 60 LDL (Calculated) 37 CALC Low 50 - 159 Laboratory test finding 12/14/2020 [facility] Community Planning Technician: [place] [address] [phone] Thyroid Stimulating Hormone 2.30 uIU/mL 0.3 6 - 3.74 Complete Blood Count 12/07/2020 [place] [address] [place] [address] [phone] White Blood Count 6.7 10 Normal 4.0-10.0 [...] 0.0 % Normal 0-0 Prothrombin Time/Inr 12/07/2020 [facility] [address] [place] [address] [phone] Prothrombin Time 13.0 seconds Normal 12.7-14.5 Inr 0.94 Normal 3 Basic Metabolic Profile 12/07/2020 [facility] [address] [place] [address] [phone] Glucose, Fasting 114 mg/dL High 70-100 Blood Urea Nitrogen 21 mg/dL High 7-18 Creatinine For GFR 1.01 mg/dL Normal 0.70-1.30 Glomerular Filtration Rate > 60.0 Normal >42 4 Sodium Level 131 mEq/L Low 136-145 Potassium Serum 4.3 mEq/L Normal 3.5-5.1 Chloride Level 97 mEq/L Low 98-107 Carbon Dioxide Level 26 mEq/L Normal 21-32 Anion Gap 8 mEq/L Normal 8-16 Calcium Level 9.5 mg/dL Normal 8.8-10.2 Gastrointestinal (GI) Panel 10/28/[address] [address] [phone] Gastrointestinal (GI) Panel This Gastrointes <SEE NOTE > 5 Complete Blood Count 10/26/2020 [facility] Community Planning Technician: [place] [address] [phone] WBC 6.0 x10*3/UL 4.1 - 10.9 RBC [...] 2.0 - 7.8 Laboratory test finding 10/26/2020 [place] [facility] leela baum Community Planning Technician: Dr Christo Richey [place], [place] [id number] [phone] Magnesium 1.8 mg/dL 1.8 - 2.4 Comprehensive Chem Profile 10/26/2020 [facility] lutz Community Planning Technician: Dr Christo Richey [place], [place] [id number] [phone] Glucose 158 mg/dL High 74 - 99 6 BUN 26 mg/dL High 7 - 18 [...] Low >60 GFR 60 mL/min Low >60 7 Vitamin B12 & Folate 10/13/2020 [facility] [address] [place] [address] [phone] Vitamin B12 Level 758 pg/mL Normal 8 Folate > 24.0 NG/ML Normal 9 Complete Blood Count 07/14/2020 [facility] [address] [place] [address] [phone] White Blood Count 6.9 10 Normal 4.0-10.0 [...] % Normal 0-0 Basic Metabolic Profile 07/14/[address] [id number] [phone] Glucose, Fasting 74 mg/dL Normal 70-100 Blood Urea Nitrogen 34 mg/dL High 7-18 Creatinine For GFR 0.98 mg/dL Normal 0.70-1.30 Glomerular Filtration Rate > 60.0 Normal >42 1 0 Sodium Level 134 mEq/L Low 136-145 Potassium Serum 5.4 mEq/L High 3.5-5.1 11 Chloride Level 102 mEq/L Normal 98-107 Carbon Dioxide Level 27 mEq/L Normal 21-32 Anion Gap 5 mEq/L Low 8-16 Calcium Level 10.4 mg/dL High 8.8-10.2 1 100-125 mg/dL PRE-DIABET ES/FASTING >126 mg/dL DIABETES/FASTING 2 CHRONIC KIDNEY DISEASE STAGI NG PER NKF STAGE I & II GFR >= 60 NORMAL TO MILDLY DECREASED STAGE III GFR 30-59 MODERATELY DECREASED STAGE IV GFR 15-29 SEVERELY DECREASED STAGE V GFR <15 VERY LITTLE GFR LEFT ESRD GFR <15 ON GERONTOLOGY AIDE 3 THERAPUTIC HUMAN INR VALUES INDICATIONS NORMAL RANGES PROPHYLAXIS/TREATMENT OF: VENOUS THROMBOSIS 2.0-3.0 PULMONARY EMBOLISM 2.0-3.0 PREVENTION OF SYSTEMIC EMBOLISM FROM: TISSUE HEART VALVES 2.0-3.0 ACUTE MYOCARDIAL INFARCTION 2.0-3.0 VALVULAR HEART DISEASE 2.0-3.0 ATRIAL FIBRILLATION 2.0-3.0 MECHANICAL VALVES(HIGH RISK) 2.5-3.5 RECURRENT MYOCARDIAL INFARCTION 2.5-3.5 4 Units are mL/min/1.73 m2 Chronic Kidney Disease Staging per NKF: Stage I & II GFR >=60 Normal to Mildly Decreased Stage III GFR 30-59 Moderately Decreased Stage IV GFR 15-29 Severely Decreased Stage V GFR <15 Very Little GFR Left ESRD GFR <15 on GERONTOLOGY AIDE 5 This Gastrointestinal PCR Pa harrison detects the [...] infection. NEGATIVE by MULTIPLEXED NUCLEIC ACID PCR 6 100-125 mg/dL PRE-DIABET ES/FASTING >126 mg/dL DIABETES/FASTING 7 CHRONIC KIDNEY DISEASE STAGI NG PER NKF STAGE I & II GFR >= 60 NORMAL TO MILDLY DECREASED STAGE III GFR 30-59 MODERATELY DECREASED STAGE IV GFR 15-29 SEVERELY DECREASED STAGE V GFR <15 VERY LITTLE GFR LEFT ESRD GFR <15 ON GERONTOLOGY AIDE 8 VITAMIN B12 NORMAL RANGE NORMAL 247 - 911 PG/ML INDETERMINATE 211 - 246 PG/ML DEFICIENT LESS THAN 211 PG/ML 9 FOLATE NORMAL RANGE NORMAL GREATER THAN 5.4 NG/ML INDETERMINATE 3.4-5.4 NG/ML DEFICIENT LESS THAN 3.4 NG/ML 10 Units are mL/min/1.73 m2 Chronic Kidney Disease Staging per NKF: Stage I & II GFR >=60 Normal to Mildly Decreased Stage III GFR 30-59 Moderately Decreased Stage IV GFR 15-29 Severely Decreased Stage V GFR <15 Very Little GFR Left ESRD GFR <15 on GERONTOLOGY AIDE 11 Testing was performed on a S LIGHTLY hemolyzed specimen. Suggest recollection of specimen for more accurate test results. Procedures Date Code Description Status 10/26/2020 61725 Office/Outpatient Established Mo d MDM 30-39 Min Completed 04/06/2020 [id number] Diabetic Retinal Eye Exam [facility] 03/24/2019 [id number] Diabetic Retinal Eye Exam [facility] 02/12/2018 [id number] Diabetic Retinal Eye Exam [facility] Medical Devices Description No Information Available Encounters Type Date Location Provider Dx Diagnosis Office Visit 10/26/2020 3:00p [facility]CALEXIA Ramirez JR E11.9 Type 2 diabetes mellitus wit hout complications R19.7 Diarrhea, unspecified Assessments Date Code Description Provider 10/26/2020 E11.9 Type 2 diabetes mellitus without complications ALEXIA Zepeda JR 10/26/2020 R19.7 Diarrhea, unspecified ALEXIA Person JR Plan of Treatment No Information Available Functional Status Description No Information Available Mental Status Description No Information Available Referrals Refer to Reason for Referral Status Appt Date Bakari Valles JR, MD CONSULT FOR SCREENING COLONO SCOPY DX: PERSISTENT DIARRHEA Patient Notified 11/09/[address] [facility] Surgery [address] [address] [phone]
--- OUTSIDE RECORDS SUMMARY | 2021-02-17 09:29 | CCD | Continuity of Care Document ---
Author Author Lab Schedule, Venu Grady Organization Unknown Address [address] [address] Phone Unavailable Care Team Providers Care Home Appliance Installer Name Role Phone Alonzo Jeffers MD AUTM [phone] Gabo Briones O.D. AUTM [phone] Anca Castano AUTM [phone] [facility] AUTM Fran Payan MD AUTM [phone] Problems Active Problems Provider Date Osteoarthritis Onset: [...] e11.9 200units Alonzo Jeffers M.D. 10/24/2016 Nystatin-Triamcinolone 243863-9.1Unit/GM-% Cream apply small amount to effected area [...] 0.5 ML Misc twice daily 200units Elizabeth Jones DO 05/28/2015 Stool Softener 100mg Capsules 1 by mouth bid Alonzo Jeffers M.D. 05/28/2015 Hydrochlorothiazide 25mg Tablets 1 by mouth every day 90tabs Alonzo Jeffers M.D. 11/27/2014 Atorvastatin Calcium 80mg Tablets take one tablet by mouth once daily, 90tabs Alonzo Jeffers M.D. 12/15/2013 Lantus 100Unit/ML Solution 30 units subcutaneously daily, 30units Alonzo Jeffers M.D. 11/28 Ferrous Sulfate 324(65Fe) mg Table ts DR 1 tablet, 2 times per day, 60talayo Jeffers M.D. Metformin HCL 1000mg Tablets 1 tablet per day, 180tabs Alonzo Jeffers M.D. Avapro [...] CPT Code Status Date Vaccine Lot # [id number] Given 12/20/2020 Influenza Vaccin e Quadrivalent Preser/Antibiotic Free Im Use [id number] 64500 Given 12/09/2019 Influenza Vaccin e Quadrivalent Preser/Antibiotic Free Im Use 121317 73490 Given 04/04/2019 Shingrix Zoster Vaccine (HZV), Recombinant, Subunit, Adjuvanted 10253 Given 01/23/2019 Shingrix Zoster Vaccine (HZV), Recombinant, Subunit, Adjuvanted U-Tetan Given 12/30/2017 Tetanus,Unspecified U-Flu Given 12/18/2017 Influenza,Unspecified U-PneuC Given 10/26/2016 Prevnar 13 Q2037 Given 01/13/2016 Fluvirin Virus Vaccine 62923 01 77880 Given 12/30/2013 Influenza Virus Vaccine 02668 Given 01/28/2013 Influenza Virus Vaccine 49849 Given 01/03/2012 Influenza Virus Vaccine 02307 Given 03/01/2011 Influenza Virus Vaccine 28693 Given 05/16/2010 Pneumovax 23 26499 Given 04/19/2010 Pneumovax 23 34784 Given 03/21/2010 Adacel- Tetanus Diphtheria P ertussis 50431 Given 12/17/2009 Influenza Virus Vaccine 17133 Refused 05/20/2012 Zoster Vaccine Vital Signs Date [...] H/L Range Note Complete Blood Count 12/14/2020 [facility] [employer] leela krueger Call Worker: [place] [address] [phone] WBC 5.6 x10*3/UL 4.1 - 10.9 RBC [...] 2.0 - 7.8 Comprehensive Chem Profile 12/14/2020 [facility] Rangel Call Worker: [place] [address] [phone] Glucose 112 mg/dL High 74 - 99 [...] 60 mL/min >60 2 Lipid Profile 12/14/2020 [facility] , Call Worker: [place] [address] [phone] Cholesterol 133 mg/dL 131 - 200 Triglycerides 167 mg/dL High 30 - 150 HDL Cholesterol 63 mg/dL High 35 - 60 LDL (Calculated) 37 CALC Low 50 - 159 Laboratory test finding 12/14/2020 [facility] Call Worker: Dr Christo Richey [place], [place] [address] [phone] Thyroid Stimulating Hormone 2.30 uIU/mL 0.3 6 - 3.74 Complete Blood Count 12/07/2020 [facility] enter [address] [place] [address] [phone] White Blood Count 6.7 10 Normal 4.0-10.0 [...] 0.0 % Normal 0-0 Prothrombin Time/Inr 12/07/2020 [facility] enter [address] [place] [address] [phone] Prothrombin Time 13.0 seconds Normal 12.7-14.5 Inr 0.94 Normal 3 Basic Metabolic Profile 12/07/[address] [address] [phone] Glucose, Fasting 114 mg/dL High 70-100 Blood [...] mg/dL Normal 8.8-10.2 Gastrointestinal (GI) Panel 10/28/[address] [address] [phone] Gastrointestinal (GI) Panel This Gastrointes <SEE NOTE > 5 Complete Blood Count 10/26/2020 [facility] Call Worker: [place] [address] [phone] WBC 6.0 x10*3/UL 4.1 - 10.9 RBC [...] 2.0 - 7.8 Laboratory test finding 10/26/2020 [facility] leela baum Call Worker: [place] [address] [phone] Magnesium 1.8 mg/dL 1.8 - 2.4 Comprehensive Chem Profile 10/26/2020 [facility] le[facility] lutz Call Worker: [place] [address] [phone] Glucose 158 mg/dL High 74 - 99 [...] >60 7 Vitamin B12 & Folate 10/13/2020 [facility] enter [address] [place] [address] [phone] Vitamin B12 Level 758 pg/mL Normal 8 Folate > 24.0 NG/ML Normal 9 Complete Blood Count 07/14/2020 [facility] enter [address] [place] [address] [phone] White Blood Count 6.9 10 Normal 4.0-10.0 [...] % Normal 0-0 Basic Metabolic Profile 07/14/[address] [address]88 [phone] Glucose, Fasting 74 mg/dL Normal 70-100 Blood [...] LITTLE GFR LEFT ESRD GFR <15 ON AQUATICS MANAGER 3 THERAPUTIC HUMAN INR VALUES INDICATIONS NORMAL [...] Little GFR Left ESRD GFR <15 on AQUATICS MANAGER 5 This Gastrointestinal PCR Pa harrison detects [...] LITTLE GFR LEFT ESRD GFR <15 ON AQUATICS MANAGER 8 VITAMIN B12 NORMAL RANGE NORMAL 247 [...] Little GFR Left ESRD GFR <15 on AQUATICS MANAGER 11 Testing was performed on a S LIGHTLY hemolyzed specimen. Suggest recollection of specimen for more accurate test results. Procedures Date Code Description Status 10/26/2020 71460 Office/Outpatient Established Mo d MDM 30-39 Min Completed 04/06/2020 [id number] Diabetic Retinal Eye Exam [facility] 03/24/2019 [id number] Diabetic Retinal Eye Exam [facility] 02/12/2018 [id number] Diabetic Retinal Eye Exam [facility] Medical Devices Description No Information Available Encounters Type Date Location Provider Dx Diagnosis Office Visit 10/26/2020 3:00p [facility]ALEXIA Tsai JR E11.9 Type 2 diabetes mellitus wit [...] SCOPY DX: PERSISTENT DIARRHEA Patient Notified 11/09/2020 [facility] [address] [address] [phone]
--- OUTSIDE RECORDS SUMMARY | 2021-02-17 09:29 | CCD | Continuity of Care Document ---
Author Author Venu LEAVITT MD Organization Unknown Address [address] [place] [address], [address] [place] [address] Phone [phone] Care Team Providers Care Medical Technologist Name Role Phone Alonzo Jeffers M.D. AUTM [phone] Wade Hurst AUTM [phone] AUTM Unavailable Problems Active Problems Provider Date Essential hypertension Fior Lowe, A.N.P. Onset: 07/2012 Obstructive sleep apnea syndrome Fior Lowe, A.N.P. Onset: 05/26/2010 Social History Type Date Description Comments Sex Unknown ETOH Use Denies alcohol use Tobacco Use Reviewed: 01/02/19 Non Smoker Recreational Drug Use Denies Drug Use Smoking Status Reviewed: 06/28/20 Non Smoker Allergies, Adverse Reactions, Alerts Description No Known Drug Allergies Medications Active Medications SIG Qnty Indications Ordering Provide r Date Clopidogrel Bisulfate 75mg Tablets 1 tab by mouth every day 90tabs Jose Leavitt MD 10/14/2020 Metformin HCL 1000mg Tablets 1 [...] day Unknown CPAP 12cm marras Unknown Nystatin-Triamcinolone 664108-9.1Unit/GM-% Cream twice a day Unknown Paroxetine HCL [...] 3 Years Of Age Or Older (Flulaval) 34439 Given 02/11/2009 Influenza Vaccine 57869 Given 12/27/2007 Influenza Vaccine Vital Signs Date Vital Result Comment 11/15/2020 1:29pm BP Systolic 160 mmHg BP Diastolic 70 mmHg Body Temperature 98.3 F Height 65 inches 5'5" Weight 207.00 lb BMI (Body Mass Index) 34.4 kg/m2 [place] Body Weight 136 lb Weight 93.895 kg BSA (Body Surface Area) 2.01 m2 11/15/2020 1:01pm BP Systolic 160 mmHg BP Diastolic 70 mmHg Body Temperature 98.3 F Height 65 inches 5'5" Weight 207.00 lb BMI (Body Mass Index) 34.4 kg/m2 [place] Body Weight 136 lb Weight 93.895 kg BSA (Body Surface Area) 2.01 m2 Results Test Acquired Date Facility Test Result H/L Range Note Complete Blood Count 12/07/2020 [facility] enter Main Lab [address] [place], [place] [address] [phone] White Blood Count 6.7 10 Normal 4.0-10.0 [...] 0.0 % Normal 0-0 Prothrombin Time/Inr 12/07/2020 [facility] Main Lab [address] [place], [place] [address] [phone] Prothrombin Time 13.0 seconds Normal 12.7-14.5 Inr 0.94 Normal 1 Basic Metabolic Profile 12/07/2020 [facility] Main Lab [address] [place], [place] [address] [phone] Glucose, Fasting 114 mg/dL High 70-100 Blood [...] Little GFR Left ESRD GFR <15 on GERIATRIC PERSONAL CARE AIDE Procedures Date Code Description Status 11/15/2020 63466 Office/Outpatient Established Mo d MDM 30-39 Min Completed 11/15/2020 11744 Office/Outpatient Established Lo w MDM 20-29 Min Completed 10/14/2020 14038 Office/Outpatient Established Lo w MDM 20-29 Min Completed 06/28/2020 14052 Office/Outpatient Established Lo w MDM 20-29 Min Completed Medical Devices Description No Information Available Encounters Type Date Location Provider Dx Diagnosis Office Visit 11/15/2020 1:15p [facility] ALEXIA Barahona R19.7 Diarrhea, unspecified K57.30 Dvrtclos of lg int w/o perfo ration or abscess w/o bleeding K64.9 Unspecified hemorrhoids I70.213 Athscl [place] of ex trm w intrmt elbert, bi legs Office Visit 11/15/2020 1:45p [facility] Jose valiente MD I70.202 Unsp athscl [place] arteries of extremiti es, left leg Office Visit 10/14/2020 11:00a [facility] Jose valiente MD I70.212 Athscl [place] of extrm w intrmt elbert, left leg Office Visit 06/28/2020 10:15a [facility] ALEXIA Barahona I70.213 Athscl [place] of extrm w intrmt elbert, bi legs Assessments Date Code Description Provider 11/15/2020 I70.202 Unspecified atherosc lerosis of [place] arteries of extremities, left leg Jose Leavitt [...] intermittent claudication, left leg Jose Leavitt MD 06/28/2020 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, bilateral legs ALEXIA Cole Plan of Treatment Future Appointment(s):* 12/16/2020 9:30 am - Robyn Camilo MD at [facility] * 01/17/2021 10:15 am - ALEXIA Cole at [facility] * 01/06/2021 9:10 am - Bakari Valles JR, MD at [facility] * 01/10/2021 10:15 am - Kelly Christianson NTamie at [facility] Pulmonary/Thoracic 11/15/2020 - Jose Leavitt MD* I70.202 Unspecified atherosclerosis of [place] arteries of extremities, left leg Functional Status Description No Information Available Mental Status Description No Information Available Referrals Refer to Reason for Referral Status Appt Date Bakari Valles M.D. COLONOSCOPY Scheduled 11/09/2020 [facility] General Surgery [address] [address] [phone]
--- OUTSIDE RECORDS SUMMARY | 2021-02-17 09:29 | CCD | Continuity of Care Document ---
Author Author Venu TRIMBLE MD Organization Unknown Address [address] [facility] [address] [place] [address] Phone [phone] Care Team Providers Care Front Load Trash Truck Driver Name Role Phone Alonzo Jeffers M.D. AUTM [phone] Wade Hurst AUTM [phone] AUTM Unavailable Problems Active Problems Provider Date [...] day Unknown CPAP 12cm marras Unknown Nystatin-Triamcinolone 820993-5.1Unit/GM-% Cream twice a day Unknown Paroxetine HCL [...] 3 Years Of Age Or Older (Flulaval) 70453 Given 02/11/2009 Influenza Vaccine 51067 Given 12/27/2007 Influenza Vaccine Vital Signs Date Vital Result Comment 12/23/2020 3:10pm BP Systolic 160 mmHg BP Diastolic 71 mmHg Body Temperature 98.4 F Height 65 inches 5'5" Weight 208.00 lb BMI (Body Mass Index) 34.6 kg/m2 [place] Body Weight 136 lb Weight 94.349 kg BSA (Body Surface Area) 2.01 m2 11/15/2020 1:29pm BP Systolic 160 mmHg BP Diastolic 70 mmHg Body Temperature 98.3 F Height 65 inches 5'5" Weight 207.00 lb BMI (Body Mass Index) 34.4 kg/m2 [place] Body Weight 136 lb Weight 93.895 kg BSA (Body Surface Area) 2.01 m2 Results Test Acquired Date Facility Test Result H/L Range Note Complete Blood Count 12/07/2020 [facility] Main Lab [address] [place], [place] [address] [phone] White Blood Count 6.7 10 Normal 4.0-10.0 [...] 0.0 % Normal 0-0 Prothrombin Time/Inr 12/07/2020 [facility] Main Lab [address] [place], [place] [address] [phone] Prothrombin Time 13.0 seconds Normal 12.7-14.5 Inr 0.94 Normal 1 Basic Metabolic Profile 12/07/2020 [facility] Main Lab [address] [place], [place] [address] [phone] Glucose, Fasting 114 mg/dL High 70-100 Blood [...] Little GFR Left ESRD GFR <15 on SHAMPOO TECHNICIAN Procedures Date Code Description Status 12/23/2020 60081 Office/Outpatient Established Mo d MDM 30-39 Min Completed 11/15/2020 77340 Office/Outpatient Established Mo d MDM 30-39 Min Completed 11/15/2020 78648 Office/Outpatient Established Lo w MDM 20-29 Min Completed 10/14/2020 14918 Office/Outpatient Established Lo w MDM 20-29 Min Completed 06/28/2020 13324 Office/Outpatient Established Lo w MDM 20-29 Min Completed Medical Devices Description No Information Available Encounters Type Date Location Provider Dx Diagnosis Office Visit 12/23/2020 3:15p [facility] Rat estela Trimble MD I70.202 Unsp athscl [place] arteries of extremities, left leg R19.7 Diarrhea, unspecified 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 M19.09 Primary osteoarthritis, othe r specified site E66.01 Morbid (severe) obesity due to excess calories Office Visit 11/15/2020 1:15p [facility] ALEXIA Barahona R19.7 Diarrhea, unspecified K57.30 Dvrtclos of lg int w/o perfo ration or abscess w/o bleeding K64.9 Unspecified hemorrhoids I70.213 Athscl [place] arteries of ex trm w intrmt elbert, bi legs Office Visit 11/15/2020 1:45p [facility] Jose valiente MD I70.202 Unsp athscl [place] arteries of extremiti es, left leg Office Visit 10/14/2020 11:00a [facility] Jose valiente MD I70.212 Athscl [place] arteries of extrm w intrmt elbert, left leg Office Visit 06/28/2020 10:15a [facility] ALEIXA Barahona I70.213 Athscl [place] arteries of extrm w intrmt elbert, bi legs Assessments Date Code Description Provider 12/23/2020 I70.202 Unspecified atherosc lerosis of [place] arteries of extremities, left leg Leigh Ann Trimble MD 12/23/2020 R19.7 Diarrhea, unspecified Leigh Ann Trimble MD 12/23/2020 I25.10 Atherosclerotic hear t disease of [place] coronary artery without angina pectoris Leigh Ann Trimble MD 12/23/2020 M19.09 Primary osteoarthritis, other sp ecified site Leigh Ann Trimble MD 12/23/2020 E66.01 Morbid (severe) obesity due to e xcess calories Leigh Ann Trimble MD 11/15/2020 I70.202 Unspecified atherosc lerosis of [place] arteries of extremities, left leg Jose Ryan [...] 11:00 am - Kelly Christianson N.P. at [facility] Pulmonary/Thoracic 12/23/2020 - Leigh Ann Trimble MD* I70.202 Unspecified atherosclerosis of [place] arteries of extremities, left leg* Comments:* S/p [...] exam * I25.10 Atherosclerotic heart disease of [place] coronary artery without angina pectoris* Comments:* S/p CABG * M19.09 Primary osteoarthritis, other specified site* Comments:* Chronic * E66.01 Morbid (severe) obesity due to excess calories* Comments:* Diet and exercise: For weight loss discussed Functional Status Description No Information Available Mental Status Description No Information Available Referrals Refer to Reason for Referral Status Appt Date Bakari Valles M.D. COLONOSCOPY Scheduled 11/09/2020 [facility] Surgery [address] [id number] [phone]
--- OUTSIDE RECORDS SUMMARY | 2021-02-17 09:29 | CCD | Continuity of Care Document ---
Author Author Lab Schedule, Venu Grady Organization Unknown Address [address] [address] Phone Unavailable Care Team Providers Care Food Production Machine Operator Name Role Phone Alonzo Jeffers MD AUTM [phone] Gabo Briones O.D. AUTM [phone] Anca Castano AUTM [phone] [facility] AUTM [phone] Fran Payan MD AUTM [phone] Problems Active Problems Provider Date Osteoarthritis Onset: [...] e11.9 200units Alonzo Jeffers M.D. 10/24/2016 Nystatin-Triamcinolone 569851-8.1Unit/GM-% Cream apply small amount to effected area [...] CPT Code Status Date Vaccine Lot # 15910 Given 12/20/2020 Influenza Vaccin e Quadrivalent Preser/Antibiotic Free Im Use [id number] 05428 Given 12/09/2019 Influenza Vaccin e Quadrivalent Preser/Antibiotic Free Im Use 507992 05566 Given 04/04/2019 Shingrix Zoster Vaccine (HZV), Recombinant, Subunit, Adjuvanted 15013 Given 01/23/2019 Shingrix Zoster Vaccine (HZV), Recombinant, Subunit, Adjuvanted U-Tetan Given 12/30/2017 Tetanus,Unspecified U-Flu Given 12/18/2017 Influenza,Unspecified U-PneuC Given 10/26/2016 Prevnar 13 [id number] Given 01/13/2016 Fluvirin Virus Vaccine 66912 01 24851 Given 12/30/2013 Influenza Virus Vaccine 00685 Given 01/28/2013 Influenza Virus Vaccine 78126 Given 01/03/2012 Influenza Virus Vaccine 55216 Given 03/01/2011 Influenza Virus Vaccine 59603 Given 05/16/2010 Pneumovax 23 20595 Given 04/19/2010 Pneumovax 23 30285 Given 03/21/2010 Adacel- Tetanus Diphtheria P ertussis 57754 Given 12/17/2009 Influenza Virus Vaccine 58957 Refused 05/20/2012 Zoster Vaccine Vital Signs Date [...] Date Facility Test Result H/L Range Note Laboratory test finding 12/20/2020 [place] [facility] leela baum Forest Fire Prevention Specialist: Dr Christ[place] [address] [phone] A1c <pending> Complete Blood Count 12/14/2020 [facility] [employer] Prevention Specialist: Dr Christ[place] [address] [phone] WBC 5.6 x10*3/UL 4.1 - 10.9 RBC [...] 2.0 - 7.8 Comprehensive Chem Profile 12/14/2020 [facility] [place] [employer] Prevention Specialist: Dr Christo [place] [address] [phone] Glucose 112 mg/dL High 74 - 99 [...] 60 mL/min >60 2 Lipid Profile 12/14/2020 [facility] Forest Fire Prevention Specialist: [place] [address] [phone] Cholesterol 133 mg/dL 131 - 200 Triglycerides 167 mg/dL High 30 - 150 HDL Cholesterol 63 mg/dL High 35 - 60 LDL (Calculated) 37 CALC Low 50 - 159 Laboratory test finding 12/14/2020 [facility] Forest Fire Prevention Specialist: [place] [address] [phone] Thyroid Stimulating Hormone 2.30 uIU/mL 0.3 6 - 3.74 Complete Blood Count 12/07/2020 [facility] enter [address] [place] [address] [phone] White Blood Count 6.7 10 Normal 4.0-10.0 [...] 0-0 Prothrombin Time/Inr 12/07/2020 [facility] [address] [place] [address] [phone] Prothrombin Time 13.0 seconds Normal 12.7-14.5 Inr 0.94 Normal 3 Basic Metabolic Profile 12/07/2020 [facility] [address] [place] [address] [phone] Glucose, Fasting 114 mg/dL High 70-100 Blood [...] mg/dL Normal 8.8-10.2 Gastrointestinal (GI) Panel 10/28/2020 [facility] [address] [place] [address] [phone] Gastrointestinal (GI) Panel This Gastrointes <SEE NOTE > 5 Complete Blood Count 10/26/2020 [place] [facility] Forest Fire Prevention Specialist: [place] [address] [phone] WBC 6.0 x10*3/UL 4.1 - 10.9 RBC [...] 2.0 - 7.8 Laboratory test finding 10/26/2020 [place] [employer] [facility] leela baum Forest Fire Prevention Specialist: [place] [address] [phone] Magnesium 1.8 mg/dL 1.8 - 2.4 Comprehensive Chem Profile 10/26/2020 [place] [place] [facility] lutz Forest Fire Prevention Specialist: [place] [address] [phone] Glucose 158 mg/dL High 74 - 99 [...] >60 7 Vitamin B12 & Folate 10/13/2020 [facility] enter [address] [place] [address] [phone] Vitamin B12 Level 758 pg/mL Normal 8 Folate > 24.0 NG/ML Normal 9 Complete Blood Count 07/14/2020 [facility] enter [address] [place] [address] [phone] White Blood Count 6.9 10 Normal 4.0-10.0 [...] % Normal 0-0 Basic Metabolic Profile 07/14/2020 [facility] [address] [place], [place] [id number] [phone] Glucose, Fasting 74 mg/dL Normal 70-100 Blood [...] LITTLE GFR LEFT ESRD GFR <15 ON SERVICE CENTER ASSISTANT 3 THERAPUTIC HUMAN INR VALUES INDICATIONS NORMAL [...] Little GFR Left ESRD GFR <15 on SERVICE CENTER ASSISTANT 5 This Gastrointestinal PCR Pa harrison detects [...] LITTLE GFR LEFT ESRD GFR <15 ON SERVICE CENTER ASSISTANT 8 VITAMIN B12 NORMAL RANGE NORMAL 247 [...] Little GFR Left ESRD GFR <15 on SERVICE CENTER ASSISTANT 11 Testing was performed on a S LIGHTLY hemolyzed specimen. Suggest recollection of specimen for more accurate test results. Procedures Date Code Description Status 10/26/2020 77976 Office/Outpatient Established Mo d MDM 30-39 Min Completed 04/06/2020 [id number] Diabetic Retinal Eye Exam [facility] 03/24/2019 [id number] Diabetic Retinal Eye Exam [facility] 02/12/2018 [id number] Diabetic Retinal Eye Exam [facility] Medical Devices Description No Information Available Encounters Type Date Location Provider Dx Diagnosis Office Visit 10/26/2020 3:00p [facility] PALEXIA Camacho JR E11.9 Type 2 diabetes mellitus wit hout complications R19.7 Diarrhea, unspecified Assessments Date Code Description Provider 12/20/2020 M54.17 Radiculopathy, lumbosacral regio n Alonzo Jeffers M.D. 12/20/2020 R19.7 Diarrhea, unspecified Alonzo palomares M.D. 12/20/2020 E11.9 Type 2 diabetes mellitus without complications Alonzo Jeffers M.D. 12/20/2020 E78.5 Hyperlipidemia, unspecified Juarez Jeffers M.D. 12/20/2020 I10 Essential (primary) hypertension Alonzo Jeffers M.D. 12/20/2020 Z79.4 watermelon inspector (current) use of insul in Alonzo Jeffers M.D. 12/20/2020 D64.9 Anemia, unspecified Alonzo guadalupe M.D. 12/20/2020 K21.9 Gastro-esophageal reflux disease without esophagitis Alonzo Jeffers M.D. 12/20/2020 G20 Parkinson's disease Alonzo guadalupe M.D. 12/20/2020 R97.20 Elevated prostate specific antig en [PSA] Alonzo Jeffers M.D. 12/20/2020 K31.84 Gastroparesis Alonzo Jeffers M.D. 12/14/2020 D64.9 Anemia, unspecified Alonzo guadalupe M.D. 12/14/2020 D64.9 Anemia, unspecified Lab Schedule 12/14/2020 I10 Essential (primary) hypertension Alonzo Jeffers M.D. 12/14/2020 I10 Essential (primary) hypertension Lab Schedule 12/14/2020 E78.5 Hyperlipidemia, unspecified Juarez Jeffers M.D. 12/14/2020 E78.5 Hyperlipidemia, unspecified Lab Schedule 10/26/2020 E11.9 Type 2 diabetes mellitus without complications ALEXIA Zepeda JR 10/26/2020 R19.7 Diarrhea, unspecified ALEXIA Person JR Plan of Treatment Future Appointment(s):* 04/13/2021 2:30 pm - [facility] 12/20/2020 - Alonzo Jeffers M.D.* M54.17 Radiculopathy, lumbosacral region * R19.7 Diarrhea, unspecified * E11.9 Type 2 diabetes mellitus without complications * E78.5 Hyperlipidemia, unspecified * I10 Essential (primary) hypertension * Z79.4 half-way (current) use of insulin * D64.9 Anemia, unspecified * K21.9 Gastro-esophageal reflux disease without esophagitis * G20 Parkinson's disease * R97.20 Elevated prostate specific antigen [PSA] * K31.84 Gastroparesis * * Comments:* colonoscopy planned 01/06/21 per patient. Functional Status Description No Information Available Mental Status Description No Information Available Referrals Refer to Reason for Referral Status Appt Date Bakari Valles JR, MD CONSULT FOR SCREENING COLONO SCOPY DX: PERSISTENT DIARRHEA Patient Notified 11/09/[address] [facility] [address] [address] [phone]
--- OUTSIDE RECORDS SUMMARY | 2021-02-17 09:29 | CCD | Continuity of Care Document ---
Author Author Venu KIRBY M.D. Organization Unknown Address [address] [facility] [address] [place] [address] Phone [phone] Care Team Providers Care Compliance Monitor Name Role Phone Alonzo Kirby MD AUTM [phone] Gabo Briones O.D. AUTM [phone] Anca Castano AUTM [phone] [facility] AUTM [phone] Fran Payan MD AUTM [phone] Problems Active Problems Provider Date Osteoarthritis Onset: [...] e11.9 200units Alonzo Kirby M.D. 10/24/2016 Nystatin-Triamcinolone 021911-2.1Unit/GM-% Cream apply small amount to effected area [...] CPT Code Status Date Vaccine Lot # 89711 Given 12/20/2020 Influenza Vaccin e Quadrivalent Preser/Antibiotic Free Im Use 415349 15847 Given 12/09/2019 Influenza Vaccin e Quadrivalent Preser/Antibiotic Free Im Use 025287 62890 Given 04/04/2019 Shingrix Zoster Vaccine (HZV), Recombinant, Subunit, Adjuvanted 67712 Given 01/23/2019 Shingrix Zoster Vaccine (HZV), Recombinant, Subunit, Adjuvanted U-Tetan Given 12/30/2017 Tetanus,Unspecified U-Flu Given 12/18/2017 Influenza,Unspecified U-PneuC Given 10/26/2016 Prevnar 13 Q2037 Given 01/13/2016 Fluvirin Virus Vaccine 35095 01 20248 Given 12/30/2013 Influenza Virus Vaccine 60510 Given 01/28/2013 Influenza Virus Vaccine 63671 Given 01/03/2012 Influenza Virus Vaccine 36824 Given 03/01/2011 Influenza Virus Vaccine 83268 Given 05/16/2010 Pneumovax 23 71141 Given 04/19/2010 Pneumovax 23 63119 Given 03/21/2010 Adacel- Tetanus Diphtheria P ertussis 84668 Given 12/17/2009 Influenza Virus Vaccine 20725 Refused 05/20/2012 Zoster Vaccine Vital Signs Date [...] H/L Range Note Complete Blood Count 12/14/2020 [place] [facility] Marine Pipefitter: [place] [address] [phone] WBC 5.6 x10*3/UL 4.1 - 10.9 RBC [...] 2.0 - 7.8 Comprehensive Chem Profile 12/14/2020 [facility] Marine Pipefitter: [place] [address] [phone] Glucose 112 mg/dL High 74 - 99 [...] 60 mL/min >60 2 Lipid Profile 12/14/2020 [facility] Marine Pipefitter: Dr Christo Richey [place], [place] [address] [phone] Cholesterol 133 mg/dL 131 - 200 Triglycerides 167 mg/dL High 30 - 150 HDL Cholesterol 63 mg/dL High 35 - 60 LDL (Calculated) 37 CALC Low 50 - 159 Laboratory test finding 12/14/2020 [place] [facility] Marine Pipefitter: [place] [address] [phone] Thyroid Stimulating Hormone 2.30 uIU/mL 0.3 6 - 3.74 Complete Blood Count 12/07/2020 [place] [address] [place] [address] [phone] White Blood Count 6.7 10 Normal 4.0-10.0 [...] 0.0 % Normal 0-0 Prothrombin Time/Inr 12/07/2020 [facility] [address] [place] [address] [phone] Prothrombin Time 13.0 seconds Normal 12.7-14.5 Inr 0.94 Normal 3 Basic Metabolic Profile 12/07/2020 [facility] [address] [place] [address] [phone] Glucose, Fasting 114 mg/dL High 70-100 Blood [...] mg/dL Normal 8.8-10.2 Gastrointestinal (GI) Panel 10/28/[address] [address] [phone] Gastrointestinal (GI) Panel This Gastrointes <SEE NOTE > 5 Complete Blood Count 10/26/2020 [place] [facility] Marine Pipefitter: [place] [address] [phone] WBC 6.0 x10*3/UL 4.1 - 10.9 RBC [...] 2.0 - 7.8 Laboratory test finding 10/26/2020 [place] [facility] [employer] leela baum Marine Pipefitter: Dr Christo Richey [place], [place] [address] [phone] Magnesium 1.8 mg/dL 1.8 - 2.4 Comprehensive Chem Profile 10/26/2020 [place] [facility] leela lutz Marine Pipefitter: Dr Christo Richey [place], [place] [address] [phone] Glucose 158 mg/dL High 74 - 99 [...] >60 7 Vitamin B12 & Folate 10/13/2020 [facility] enter [address] [place] [address] [phone] Vitamin B12 Level 758 pg/mL Normal 8 Folate > 24.0 NG/ML Normal 9 Complete Blood Count 07/14/2020 [facility] enter [address] [place] [address] [phone] White Blood Count 6.9 10 Normal 4.0-10.0 [...] % Normal 0-0 Basic Metabolic Profile 07/14/[address] [address] [phone] Glucose, Fasting 74 mg/dL Normal 70-100 Blood [...] LITTLE GFR LEFT ESRD GFR <15 ON PRINTING EQUIPMENT MECHANIC 3 THERAPUTIC HUMAN INR VALUES INDICATIONS NORMAL [...] Little GFR Left ESRD GFR <15 on PRINTING EQUIPMENT MECHANIC 5 This Gastrointestinal PCR Pa harrison detects [...] LITTLE GFR LEFT ESRD GFR <15 ON PRINTING EQUIPMENT MECHANIC 8 VITAMIN B12 NORMAL RANGE NORMAL 247 [...] Little GFR Left ESRD GFR <15 on PRINTING EQUIPMENT MECHANIC 11 Testing was performed on a S LIGHTLY hemolyzed specimen. Suggest recollection of specimen for more accurate test results. Procedures Date Code Description Status 10/26/2020 [id number] Office/Outpatient Established Mo d MDM 30-39 Min Completed 04/06/2020 [id number] Diabetic Retinal Eye Exam [facility] 03/24/2019 [id number] Diabetic Retinal Eye Exam [facility] 02/12/2018 [id number] Diabetic Retinal Eye Exam [facility] Medical Devices Description No Information Available Encounters Type Date Location Provider Dx Diagnosis Office Visit 10/26/2020 3:00p [facility]CAL[facility] Ramirez JR E11.9 Type 2 [...] SCOPY DX: PERSISTENT DIARRHEA Patient Notified 11/09/2020 [facility] [address] [address] [phone]
--- OUTSIDE RECORDS SUMMARY | 2021-02-17 09:30 | CCD ---
Continuity of Care Document (CCD) Created on: 11/28/2020 Venu Phillips JR External Reference #: [id number] : [id number] Sex: Male Author Organization Unknown Address Unknown Phone Unavailable Care Team Providers Care Campus Dean Name Role Phone Alonzo Jeffers MD AUTM [phone] Gabo Briones O.D. AUTM [phone] Anca Castano AUTM [phone] [facility] AUTM [phone] Fran Payan MD AUTM [phone] Problems Active Problems Provider Date Osteoarthritis Onset: [...] Use Once Daily as Directed 200units Tiny Robert,DO 10/31/2016 Freestyle Rina Misc test twice a day e11.9 200units Alonzo Jeffers M.D. 10/24/2016 Nystatin-Triamcinolone 527202-3.1Unit/GM-% Cream apply small amount to effected area [...] Tablets 1 tablet, 2 times per day, 180talayo Jeffers M.D. Avapro 300mg Tablets 1 tablet, 1 time per day 90talayo Jeffers M.D. Istalol 0.5% Solution one drop each eye in am Gabo Briones O.D. Amlodipine Besylate 10mg Tablets 1 tablet, 1 time per day, 90tabs Alonzo Jeffers M.D. Fluorouracil 0.5% Cream Unknown Ketoconazole 2% Shampoo [...] CPT Code Status Date Vaccine Lot # [id number] Given 12/09/2019 Influenza Vaccin e Quadrivalent Preser/Antibiotic Free Im Use [id number] 41673 Given 04/04/2019 Shingrix Zoster Vaccine (HZV), Recombinant, Subunit, Adjuvanted 24993 Given 01/23/2019 Shingrix Zoster Vaccine (HZV), Recombinant, Subunit, Adjuvanted U-Tetan Given 12/30/2017 Tetanus,Unspecified U-Flu Given 12/18/2017 Influenza,Unspecified U-PneuC Given 10/26/2016 Prevnar 13 [id number] Given 01/13/2016 Fluvirin Virus Vaccine 54105 01 03334 Given 12/30/2013 Influenza Virus Vaccine 31994 Given 01/28/2013 Influenza Virus Vaccine 27244 Given 01/03/2012 Influenza Virus Vaccine 52611 Given 03/01/2011 Influenza Virus Vaccine 87609 Given 05/16/2010 Pneumovax 23 94857 Given 04/19/2010 Pneumovax 23 76837 Given 03/21/2010 Adacel- Tetanus Diphtheria P ertussis (Age64 & Under) 25445 Given 12/17/2009 Influenza Virus Vaccine 62815 Refused 05/20/2012 Zoster Vaccine Vital Signs Date [...] Date Facility Test Result H/L Range Note Gastrointestinal (GI) Panel 10/28/2020 [facility] [address] [place] [address] [phone] Gastrointestinal (GI) Panel This Gastrointes <SEE NOTE > 1 Complete Blood Count 10/26/2020 [facility] [employer] leela krueger [employer] Driver: [place] [address] [phone] WBC 6.0 x10*3/UL 4.1 - 10.9 RBC [...] 2.0 - 7.8 Laboratory test finding 10/26/2020 [facility] [employer] leela baum [employer] Driver: [place] [address] [phone] Magnesium 1.8 mg/dL 1.8 - 2.4 Comprehensive Chem Profile 10/26/2020 [facility] leela Rangel [employer] Driver: [place] [address] [phone] Glucose 158 mg/dL High 74 - 99 2 BUN 26 mg/dL High 7 - 18 [...] Low >60 GFR 60 mL/min Low >60 3 Vitamin B12 & Folate 10/13/2020 [facility] enter [address] [place] [address] [phone] Vitamin B12 Level 758 pg/mL Normal 4 Folate > 24.0 NG/ML Normal 5 Complete Blood Count 07/14/2020 [facility] enter [address] [place] [id number] [phone] White Blood Count 6.9 10 Normal 4.0-10.0 [...] % Normal 0-0 Basic Metabolic Profile 07/14/2020 [facility] [address] [place] [id number] [phone] Glucose, Fasting 74 mg/dL Normal 70-100 Blood Urea Nitrogen 34 mg/dL High 7-18 Creatinine For GFR 0.98 mg/dL Normal 0.70-1.30 Glomerular Filtration Rate > 60.0 Normal >42 6 Sodium Level 134 mEq/L Low 136-145 Potassium Serum 5.4 mEq/L High 3.5-5.1 7 Chloride Level 102 mEq/L Normal 98-107 Carbon Dioxide Level 27 mEq/L Normal 21-32 Anion Gap 5 mEq/L Low 8-16 Calcium Level 10.4 mg/dL High 8.8-10.2 Complete Blood Count 05/31/2020 [facility] [employer] [facility] [employer] Driver: [place] [address] [phone] WBC 6.0 x10*3/UL 4.1 - 10.9 RBC 4.15 x10*6/UL Low 4.20 - 6.30 Hemoglobin 11.5 g/dL Low 12.0 - 18.0 8 Hematocrit 33.8 % Low 37.0 - 51.0 MCV 81.3 fL 80.0 - 97.0 MCH 27.8 pg 26.0 - 32.0 MCHC 34.2 g/dL 31.0 - 38.0 RDW 14.0 % High 11.6 - 13.7 PLT 252 x10*3/UL 140 - 440 MPV 9.1 FL 7.8 - 11.0 Lymph % 21.7 % 10.0 - 58.5 Mid % 7.0 % 1.7 - 9.3 Neut % 71.3 % 37.0 - 92.0 Lymph # 1.3 x10*3/UL 0.6 - 4.1 Mid # 0.4 x10*3/UL 0.1 - 0.6 Neut # 4.3 x10*3/UL 2.0 - 7.8 A1c 05/31/2020 [facility] , [employer] Driver: [place] [address] [phone] Hba1c 6.8 % High <5.7 9 Est Avg Glucose 148 mg/dL High 60 - 110 Comprehensive Chem Profile 05/31/2020 [facility], [employer] Driver: [place] [address] [phone] Glucose 65 mg/dL Low 74 - 99 10 BUN 20 mg/dL High 7 - 18 Creatinine 1.0 mg/dL 0.6 - 1.3 Sodium 136 mEq/L 136 - 145 Potassium 4.3 mEq/L 3.5 - 5.1 Chloride 99 mEq/L 98 - 107 Carbon Dioxide 28 mEq/L 21 - 32 Calcium 9.1 mg/dL 8.5 - 10.1 Alk. Phosphatase 93 mg/dL 46 - 116 Total Bilirubin 0.3 mg/dL 0.2 - 1.0 Ast (Sgot) 19 U/L 15 - 37 Alt (SGPT) 30 U/L 12 - 78 Albumin 3.9 g/dL 3.4 - 5.0 Total Protein 7.0 g/dL 6.4 - 8.2 A/G Ratio 1.26 CALC 1.00 - 1.90 GFR >= 60 mL/min >60 GFR >= 60 mL/min >60 11 Lipid Profile 05/31/2020 [facility] [employer] [facility] Driver: [place] [address] [phone] Cholesterol 127 mg/dL Low 131 - 200 Triglycerides 74 mg/dL 30 - 150 HDL Cholesterol 66 mg/dL High 35 - 60 LDL (Calculated) 46 CALC Low 50 - 159 Microalbumin/Creatinine Urine 05/31/2020 [facility] [employer] Driver: [place] [address] [phone] Microalbumin Urine 267.2 mg/L High 1.3 - 20.0 Urine Creatinine 62.8 mg/dL 30.0 - 125.0 Microalb/Creat Ratio 425.5 ug/mg High 0.0 - 30.0 1 This Gastrointestinal PCR Pa harrison detects the [...] infection. NEGATIVE by MULTIPLEXED NUCLEIC ACID PCR 2 100-125 mg/dL PRE-DIABET ES/FASTING >126 mg/dL DIABETES/FASTING 3 CHRONIC KIDNEY DISEASE STAGI NG PER NKF STAGE I & II GFR >= 60 NORMAL TO MILDLY DECREASED STAGE III GFR 30-59 MODERATELY DECREASED STAGE IV GFR 15-29 SEVERELY DECREASED STAGE V GFR <15 VERY LITTLE GFR LEFT ESRD GFR <15 ON SERVICE CENTER REPRESENTATIVE 4 VITAMIN B12 NORMAL RANGE NORMAL 247 - 911 PG/ML INDETERMINATE 211 - 246 PG/ML DEFICIENT LESS THAN 211 PG/ML 5 FOLATE NORMAL RANGE NORMAL GREATER THAN 5.4 NG/ML INDETERMINATE 3.4-5.4 NG/ML DEFICIENT LESS THAN 3.4 NG/ML 6 Units are mL/min/1.73 m2 Chronic Kidney Disease Staging per NKF: Stage I & II GFR >=60 Normal to Mildly Decreased Stage III GFR 30-59 Moderately Decreased Stage IV GFR 15-29 Severely Decreased Stage V GFR <15 Very Little GFR Left ESRD GFR <15 on SERVICE CENTER REPRESENTATIVE 7 Testing was performed on a S LIGHTLY hemolyzed specimen. Suggest recollection of specimen for more accurate test results. 8 NOTE: RESULT VERIFIED. 9 Lab Result Notes: Pre-Diabetes 5.7 - 6.4 % Diabetes = or > 6.5% 10 100-125 mg/dL PRE-DIABET ES/FASTING >126 mg/dL DIABETES/FASTING 11 CHRONIC KIDNEY DISEASE STAGI NG PER NKF STAGE I & II GFR >= 60 NORMAL TO MILDLY DECREASED STAGE III GFR 30-59 MODERATELY DECREASED STAGE IV GFR 15-29 SEVERELY DECREASED STAGE V GFR <15 VERY LITTLE GFR LEFT ESRD GFR <15 ON SERVICE CENTER REPRESENTATIVE Procedures Date Code Description Status 10/26/2020 38891 Office/Outpatient Established Mo d MDM 30-39 Min Completed 06/07/2020 70232 Office/Outpatient Established Mo d MDM 30-39 Min Completed 06/07/2020 97138 Brief Emotional/Beha v Assessment W/ Scoring Doc Per Standard Inst Completed 04/06/2020 [id number] Diabetic Retinal Eye Exam [facility] 03/24/2019 639553413 Diabetic Retinal Eye Exam [facility] 02/12/2018 [id number] Diabetic Retinal Eye Exam [facility] Medical Devices Description No Information Available Encounters Type Date Location Provider Dx Diagnosis Office Visit 10/26/2020 3:00p [facility] PA E11.9 Type 2 diabetes mellitus wit hout complications R19.7 Diarrhea, unspecified Office Visit 06/07/2020 11:00a [facility] Jeffers M.D. E78.5 Hyperlipidemia, unspecified I10 Essential (primary) hyperten rowena E11.9 Type 2 diabetes mellitus wit hout complications Z79.4 care home (current) use of i nsulin D64.9 Anemia, unspecified L40.50 Arthropathic psoriasis, unsp ecified K21.9 Gastro-esophageal reflux dis ease without esophagitis F34.1 Dysthymic disorder G20 Parkinson's disease R97.20 Elevated prostate specific a ntigen [PSA] B37.83 Candidal cheilitis Assessments Date Code Description Provider 10/26/2020 E11.9 Type 2 diabetes mellitus without complications ALEXIA Zepeda JR 10/26/2020 R19.7 Diarrhea, unspecified ALEXIA Person JR 06/07/2020 E78.5 Hyperlipidemia, unspecified Juarez Jeffers M.D. 06/07/2020 I10 Essential (primary) hypertension Alonzo Jeffers M.D. 06/07/2020 E11.9 Type 2 diabetes mellitus without complications Alonzo Jeffers M.D. 06/07/2020 Z79.4 lobsterman (current) use of insul in Alonzo Jeffers M.D. 06/07/2020 D64.9 Anemia, unspecified Alonzo guadalupe M.D. 06/07/2020 L40.50 Arthropathic psoriasis, unspecif ied Alonzo Jeffers M.D. 06/07/2020 K21.9 Gastro-esophageal reflux disease without esophagitis Alonzo Jeffers M.D. 06/07/2020 F34.1 Dysthymic disorder Alonzo lacey M.D. 06/07/2020 G20 Parkinson's disease Alonzo guadalupe M.D. 06/07/2020 R97.20 Elevated prostate specific antig en [PSA] Alonzo Jeffers M.D. 06/07/2020 B37.83 Candidal cheilitis Alonzo lacey M.D. 05/31/2020 D64.9 Anemia, unspecified Alonzo guadalupe M.D. 05/31/2020 D64.9 Anemia, unspecified Lab Schedule 05/31/2020 E11.9 Type 2 diabetes mellitus without complications Alonzo Jeffers M.D. 05/31/2020 E11.9 Type 2 diabetes mellitus without complications Lab Schedule 05/31/2020 I10 Essential (primary) hypertension Alonzo Jeffers M.D. 05/31/2020 I10 Essential (primary) hypertension Lab Schedule 05/31/2020 E78.5 Hyperlipidemia, unspecified Juarez Jeffers M.D. 05/31/2020 E78.5 Hyperlipidemia, unspecified Lab Schedule Plan of Treatment Future Appointment(s):* 12/14/2020 9:20 am - Lab Schedule at [facility] * 12/20/2020 10:30 am - [facility] 06/07/2020 - Alonzo Jeffers M.D.* E78.5 Hyperlipidemia, unspecified * I10 Essential (primary) hypertension * E11.9 Type 2 diabetes mellitus without complications * Z79.4 lobsterman (current) use of insulin * D64.9 Anemia, [...] sugars. He understands and will follow up.4. care home (current) use of insulin: He will continue [...] present regimen, will continue and monitor.9. Pa rkinson's disease: Continue Requip. He is following with Bowen at [facility] Neurology and will continue appropriate follow up.10. Elevated prostate specific antigen [PSA]: There was mild elevation when last checked. He saw Urology at [facility] last year in August and we will obtain the reports. He will continue to follow up with Urology at [facility] appropriately. We will monitor.11. Candidal cheilitis: Patient [...] SCOPY DX: PERSISTENT DIARRHEA Patient Notified 11/09/[address] [facility] General Surgery [address] [id number] [phone]
--- OUTSIDE RECORDS SUMMARY | 2021-02-17 09:30 | CCD | Continuity of Care Document ---
Author Organization Unknown Address Unknown Phone Unavailable Care Team Providers Care Therapeutic Recreation Director Name Role Phone Alonzo Jeffers MD AUTM [phone] Gabo Briones O.D. AUTM [phone] Anca Castnao AUTM [phone] [facility] AUTM [phone] Fran Payan MD AUTM [phone] Problems Active Problems Provider Date Osteoarthritis Onset: [...] 1 by mouth every day E78.5 Alonzo Jeffres M.D. 12/04/19 18 Paroxetine HCL 20mg Tablets take one tablet by mouth every day 90tabs F34.1 Alonzo Jeffers M.D. 0 04/23/2017 BD Uf II Short .5cc 31G Use Once Daily as Directed 200units Tiny Robert,DO 10/31/2016 Freestyle Rina Misc test twice a day e11.9 200units Alonzo Jeffers M.D. 10/24/2016 Nystatin-Triamcinolone 320941-5.1Unit/GM-% Cream apply small amount to effected area [...] CPT Code Status Date Vaccine Lot # [id number] Given 12/09/2019 Influenza Vaccin e Quadrivalent Preser/Antibiotic Free Im Use [id number] 13627 Given 04/04/2019 Shingrix Zoster Vaccine (HZV), Recombinant, Subunit, Adjuvanted 55202 Given 01/23/2019 Shingrix Zoster Vaccine (HZV), Recombinant, Subunit, Adjuvanted U-Tetan Given 12/30/2017 Tetanus,Unspecified U-Flu Given 12/18/2017 Influenza,Unspecified U-PneuC Given 10/26/2016 Prevnar 13 Q2037 Given 01/13/2016 Fluvirin Virus Vaccine 66792 01 68234 Given 12/30/2013 Influenza Virus Vaccine 50156 Given 01/28/2013 Influenza Virus Vaccine 81672 Given 01/03/2012 Influenza Virus Vaccine 41380 Given 03/01/2011 Influenza Virus Vaccine 34416 Given 05/16/2010 Pneumovax 23 03918 Given 04/19/2010 Pneumovax 23 72927 Given 03/21/2010 Adacel- Tetanus Diphtheria P ertussis (Age64 & Under) 09417 Given 12/17/2009 Influenza Virus Vaccine 42391 Refused 05/20/2012 Zoster Vaccine Vital Signs Date [...] H/L Range Note Gastrointestinal (GI) Panel 10/28/2020 [facility] [address] [place] [address] [phone] Gastrointestinal (GI) Panel This Gastrointes <SEE NOTE > 1 Complete Blood Count 10/26/2020 [place] [employer] leela krueger Head Cager: [place] [address] [phone] WBC 6.0 x10*3/UL 4.1 - 10.9 RBC [...] 2.0 - 7.8 Laboratory test finding 10/26/2020 [place] [employer] leela baum Head Cager: [place] [address] [phone] Magnesium 1.8 mg/dL 1.8 - 2.4 Comprehensive Chem Profile 10/26/2020 [place] leela Rangel Head Cager: [place] [address] [phone] Glucose 158 mg/dL High 74 - 99 [...] >60 3 Vitamin B12 & Folate 10/13/2020 [facility] enter [address] [place] [address] [phone] Vitamin B12 Level 758 pg/mL Normal 4 Folate > 24.0 NG/ML Normal 5 Complete Blood Count 07/14/2020 [facility] enter 0 [place] [id number] [phone] White Blood Count 6.9 10 Normal 4.0-10.0 [...] % Normal 0-0 Basic Metabolic Profile 07/14/2020 [facility] [address] [place] 2779009 [phone] Glucose, Fasting 74 mg/dL Normal 70-100 Blood [...] mg/dL High 8.8-10.2 Complete Blood Count 05/31/2020 [facility] Head Cager: [place] [address] [phone] WBC 6.0 x10*3/UL 4.1 - 10.9 RBC [...] 4.3 x10*3/UL 2.0 - 7.8 A1c 05/31/2020 [facility] , Head Cager: [place] [address] [phone] Hba1c 6.8 % High <5.7 9 Est Avg Glucose 148 mg/dL High 60 - 110 Comprehensive Chem Profile 05/31/2020 [facility], Head Cager: [place] [address] [phone] Glucose 65 mg/dL Low 74 - 99 [...] 60 mL/min >60 11 Lipid Profile 05/31/2020 [facility] Head Cager: [place] [address] [phone] Cholesterol 127 mg/dL Low 131 - 200 Triglycerides 74 mg/dL 30 - 150 HDL Cholesterol 66 mg/dL High 35 - 60 LDL (Calculated) 46 CALC Low 50 - 159 Microalbumin/Creatinine Urine 05/31/2020 [facility] Head Cager: [place] [address] [phone] Microalbumin Urine 267.2 mg/L High 1.3 - [...] LITTLE GFR LEFT ESRD GFR <15 ON [employer] 4 VITAMIN B12 NORMAL RANGE NORMAL 247 [...] Little GFR Left ESRD GFR <15 on [employer] 7 Testing was performed on a S [...] LITTLE GFR LEFT ESRD GFR <15 ON [employer]NA[employer] OF [employer] Procedures Date Code Description Status 10/26/2020 82250 Office/Outpatient Established Mo d MDM 30-39 Min Completed 06/07/2020 03686 Office/Outpatient Established Mo d MDM 30-39 Min Completed 06/07/2020 11158 Brief Emotional/Beha v Assessment W/ Scoring Doc Per Standard Inst Completed 04/06/2020 692302070 Diabetic Retinal Eye Exam Comple [facility] 03/24/2019 478948598 Diabetic Retinal Eye Exam Comple [facility] 02/12/2018 849043937 Diabetic Retinal Eye Exam Comple [facility] Medical Devices Description No Information Available Encounters Type Date Location Provider Dx Diagnosis Office Visit 10/26/2020 3:00p [facility] PA E11.9 Type 2 diabetes mellitus wit hout complications R19.7 Diarrhea, unspecified Office Visit 06/07/2020 11:00a [facility] Jeffers M.D. E78.5 Hyperlipidemia, unspecified I10 Essential (primary) hyperten rowena E11.9 Type 2 diabetes mellitus wit hout complications Z79.4 prison (current) use of i nsulin D64.9 Anemia, [...] without complications Alonzo Jeffers M.D. 06/07/2020 Z79.4 rn long term care (current) use of insul in Alonzo Jeffers [...] 12/14/2020 9:20 am - Lab Schedule at [facility] * 12/20/2020 10:30 am - [facility] 06/07/2020 - Alonzo Jeffers M.D.* E78.5 Hyperlipidemia, unspecified * I10 Essential (primary) hypertension * E11.9 Type 2 diabetes mellitus without complications * Z79.4 rn long term care (current) use of insulin * D64.9 Anemia, [...] sugars. He understands and will follow up.4. prison (current) use of insulin: He will continue [...] Requip. He is following with Bowen at [facility] Neurology and will continue appropriate follow up.10. Elevated prostate specific antigen [PSA]: There was mild elevation when last checked. He saw Urology at [facility] last year in August and we will obtain the reports. He will continue to follow up with Urology at [facility] appropriately. We will monitor.11. Candidal [...] SCOPY DX: PERSISTENT DIARRHEA Patient Notified 11/09/2020 [facility] General Surgery [address] [id number] [phone]
--- OUTSIDE RECORDS SUMMARY | 2021-02-17 09:31 | CCD ---
Author Author [facility] Organization [facility] Address Unknown Phone Unavailable Care Team Providers Care Image Scientist Name Role Phone SHANNON TRIMBLE MD Unavailable Unavailable SHANNON TRIMBLE MD Unavailable Unavailable SHANNON TRIMBLE MD Unavailable Unavailable Gallo Jeffers MD Unavailable Unavailable Gallo Jeffers MD Unavailable Unavailable Gallo Jeffers MD Unavailable Unavailable Gallo Jeffers MD Unavailable Unavailable Gallo Jeffers MD Unavailable Unavailable Gallo Jeffers MD Unavailable Unavailable Gallo Jeffers MD Unavailable Unavailable Gallo Jeffers MD Unavailable Unavailable Gallo Jeffers MD Unavailable Unavailable Gallo Jeffers MD Unavailable Unavailable Gallo Jeffers MD Unavailable Unavailable Gallo Jeffers MD Unavailable Unavailable Gallo Jeffers MD Unavailable Unavailable Gallo Jeffers MD Unavailable Unavailable Gallo Jeffers MD Unavailable Unavailable Gallo Jeffers MD Unavailable Unavailable Gallo Jeffers MD Unavailable Unavailable Gallo Jeffers MD Unavailable Unavailable Gallo Jeffers MD Unavailable Unavailable Gallo Jeffers MD Unavailable Unavailable Gallo Jeffers MD Unavailable Unavailable Gallo Jeffers MD Unavailable Unavailable Gallo Jeffers MD Unavailable Unavailable Gallo Jeffers MD Unavailable Unavailable Gallo Jeffers MD Unavailable Unavailable Gallo Jeffers MD Unavailable Unavailable Gallo Jeffers MD Unavailable Unavailable White F Alonzo Unavailable Unavailable White F Alonzo Unavailable Unavailable White F Alonzo Unavailable Unavailable White F Alonzo Unavailable Unavailable White F Alonzo Unavailable Unavailable White F Alonzo Unavailable Unavailable White F Alonzo Unavailable Unavailable White F Alonzo Unavailable Unavailable White F Alonzo Unavailable Unavailable White F Alonzo Unavailable Unavailable White F Alonzo Unavailable Unavailable White F Alonzo Unavailable Unavailable White F Alonzo Unavailable Unavailable White F Alonzo Unavailable Unavailable White F Alonzo Unavailable Unavailable White, F Alonzo Unavailable Unavailable White F Alonzo Unavailable Unavailable White, F Alonzo Unavailable Unavailable White F Alonzo Unavailable Unavailable White F Alonzo Unavailable Unavailable White F Alonzo Unavailable Unavailable White F Alonzo Unavailable Unavailable White F Alonzo Unavailable Unavailable White F Alonzo FORD Unavailable Unavailable White F Alonzo FORD Unavailable Unavailable White F Alonzo FORD Unavailable Unavailable Aury F Alonzo FORD Unavailable Unavailable White F Alonzo FORD Unavailable Unavailable White F Alonzo Unavailable Unavailable White F Alonzo FORD Unavailable Unavailable White F Alonzo FORD Unavailable Unavailable White F Alonzo FORD Unavailable Unavailable White F Alonzo FORD Unavailable Unavailable Aury F Alonzo FORD Unavailable Unavailable Aury F Alonzo FORD Unavailable Unavailable Aury F Alonzo FORD Unavailable Unavailable Aury F Alonzo FORD Unavailable Unavailable Aury F Alonzo FORD Unavailable Unavailable Aury F Alonzo FORD Unavailable Unavailable Aury F Alonzo FORD Unavailable Unavailable Aury F Alonzo FORD Unavailable Unavailable Aury F Alonzo FORD Unavailable Unavailable Aury F Alonzo FORD Unavailable Unavailable Aury F Alonzo FORD Unavailable Unavailable Aury F Alonzo FORD Unavailable Unavailable Aury F Alonzo FORD Unavailable Unavailable Aury F Alonzo FORD Unavailable Unavailable Aury F Alonzo FORD Unavailable Unavailable Aury F Alonzo FORD Unavailable Unavailable Aury F Alonzo FORD Unavailable Unavailable Francisco LEAVITT MD Unavailable Unavailable Francisco LEAVITT MD Unavailable Unavailable Francisco LEAVITT MD Unavailable Unavailable Francisco LEAVITT MD Unavailable Unavailable Francisco LEAVITT MD Unavailable Unavailable Francisco LEAVITT MD Unavailable Unavailable Francisco LEAVITT MD Unavailable Unavailable Gardenia Payan MD Unavailable Unavailable Gardenia Payan MD Unavailable Unavailable Gardenia Payan MD Unavailable Unavailable Gardenia Payan MD Unavailable Unavailable Gardenia Payan MD Unavailable Unavailable Gardenia Payan MD Unavailable Unavailable Gardenia Payan MD Unavailable Unavailable Gardenia Payan MD Unavailable Unavailable Gardenia Payan MD Unavailable Unavailable Gardenia Payan MD Unavailable Unavailable Gardenia Payan MD Unavailable Unavailable Gardenia Payan MD Unavailable Unavailable Gardenia Payan MD Unavailable Unavailable Gardenia Payan MD Unavailable Unavailable PICKERAL JR, J MARTIN PA-C Unavailable Unavailable PICKERAL JR, J MARTIN PA-C Unavailable Unavailable PICKERAL JR, J MARTIN PA-C Unavailable Unavailable PICKERAL JR, J MARTIN PA-C Unavailable Unavailable PICKERAL JR, J MARTIN PA-C Unavailable Unavailable PICKERAL JR, J MARTIN PA-C Unavailable Unavailable PICKERAL JR, J MARTIN PA-C Unavailable Unavailable PICKERAL JR, J MARTIN PA-C Unavailable Unavailable PICKERAL JR, J MARTIN PA-C Unavailable Unavailable PICKERAL JR, J MARTIN PA-C Unavailable Unavailable PICKERAL JR, J MARTIN PA-C Unavailable Unavailable PICKERAL JR, J MARTIN PA-C Unavailable Unavailable PICKERAL JR, J MARTIN PA-C Unavailable Unavailable PICKERAL JR, J MARTIN PA-C Unavailable Unavailable PICKERAL JR, J MARTIN PA-C Unavailable Unavailable PICKERAL JR, J MARTIN PA-C Unavailable Unavailable PICKERAL JR, J MARTIN PA-C Unavailable Unavailable PICKERAL JR, J MARTIN PA-C Unavailable Unavailable PICKERAL JR, J MARTIN PA-C Unavailable Unavailable PICKERAL JR, J MARTIN PA-C Unavailable Unavailable PICKERAL JR, J MARTIN PA-C Unavailable Unavailable PICKERAL JR, J MARTIN PA-C Unavailable Unavailable PICKERAL JR, J MARTIN PA-C Unavailable Unavailable PICKERAL JR, J MARTIN PA-C Unavailable Unavailable PICKERAL JR, J MARTIN PA-C Unavailable Unavailable PICKERAL JR, J MARTIN PA-C Unavailable Unavailable PICKERAL JR, J MARTIN PA-C Unavailable Unavailable Trickey, J Randee PA Unavailable Unavailable Trickey, J Randee PA Unavailable Unavailable Trickey, J Randee PA Unavailable Unavailable Trickey, J Randee PA Unavailable Unavailable Trickey, J Randee PA Unavailable Unavailable Trickey, J Randee PA Unavailable Unavailable Trickey, J Randee PA Unavailable Unavailable Trickey, J Randee PA Unavailable Unavailable Trickey, J Randee PA Unavailable Unavailable Trickey, J Randee PA Unavailable Unavailable Trickey, J Randee PA Unavailable Unavailable Trickey, J Randee PA Unavailable Unavailable Trickey, J Randee PA Unavailable Unavailable Trickey, J Randee PA Unavailable Unavailable Trickey, J Randee PA Unavailable Unavailable Trickey, J Randee PA Unavailable Unavailable Trickey, J Randee PA Unavailable Unavailable Trickey, J Randee PA Unavailable Unavailable Trickey, J Randee PA Unavailable Unavailable Trickey, J Randee PA Unavailable Unavailable Trickey, J Randee PA Unavailable Unavailable Trickey, J Randee PA Unavailable Unavailable Trickey, J Randee PA Unavailable Unavailable Trickey, J Randee PA Unavailable Unavailable Trickey, J Randee PA Unavailable Unavailable Trickey, J Randee PA Unavailable Unavailable Trickey, J Randee PA Unavailable Unavailable Trickey, J Randee PA Unavailable Unavailable Trickey, J Randee PA Unavailable Unavailable Trickey, J Randee PA Unavailable Unavailable Trickey, J Randee PA Unavailable Unavailable Trickey, J Randee PA Unavailable Unavailable Trickey, J Randee PA Unavailable Unavailable Trickey, J Randee PA Unavailable Unavailable Trickey, J Randee PA Unavailable Unavailable Trickey, J Randee PA Unavailable Unavailable Trickey, J Randee PA Unavailable Unavailable Trickey, J Randee PA Unavailable Unavailable Trickey, J Randee PA Unavailable Unavailable Trickey, J Randee PA Unavailable Unavailable Trickey, J Randee PA Unavailable Unavailable Trickey, J Randee PA Unavailable Unavailable Trickey, J Randee PA Unavailable Unavailable Trickey, J Randee PA Unavailable Unavailable Trickey, J Randee PA Unavailable Unavailable Trickey, J Randee PA Unavailable Unavailable Trickey, J Randee PA Unavailable Unavailable Trickey, J Randee PA Unavailable Unavailable Trickey, J Randee PA Unavailable Unavailable Aimee Kramer MD Unavailable Unavailable Aimee Kramer MD Unavailable Unavailable Aimee Kramer MD Unavailable Unavailable Aimee Kramer MD Unavailable Unavailable Aimee Kramer MD Unavailable Unavailable Aimee Kramer MD Unavailable Unavailable Aimee Kramer MD Unavailable Unavailable Aimee Kramer MD Unavailable Unavailable Aimee Kramer MD Unavailable Unavailable Aimee Kramer MD Unavailable Unavailable Aimee Kramer MD Unavailable Unavailable Aimee Kramer MD Unavailable Unavailable Aimee Kramer MD Unavailable Unavailable Aimee Kramer MD Unavailable Unavailable Aimee Kramer MD Unavailable Unavailable Aimee Kramer MD Unavailable Unavailable ALYSSA NINO SHEET METAL LAY OUT WORKER-C Unavailable Unavailable MICA, ALYSSA SWETHA SHEET METAL LAY OUT WORKER-C Unavailable Unavailable MICA, ALYSSA SWETHA SHEET METAL LAY OUT WORKER-C Unavailable Unavailable MICA, ALYSSA SWETHA SHEET METAL LAY OUT WORKER-C Unavailable Unavailable MICA, ALYSSA SWETHA SHEET METAL LAY OUT WORKER-C Unavailable Unavailable MICA, ALYSSA SWETHA SHEET METAL LAY OUT WORKER-C Unavailable Unavailable MICA, ALYSSA SWETHA SHEET METAL LAY OUT WORKER-C Unavailable Unavailable MICA, ALYSSA SWETHA SHEET METAL LAY OUT WORKER-C Unavailable Unavailable MICA, ALYSSA SWETHA SHEET METAL LAY OUT WORKER-C Unavailable Unavailable MICA, ALYSSA SWETHA SHEET METAL LAY OUT WORKER-C Unavailable Unavailable MICA, ALYSSA SWETHA SHEET METAL LAY OUT WORKER-C Unavailable Unavailable MICA, ALYSSA SWETHA SHEET METAL LAY OUT WORKER-C Unavailable Unavailable MICA, ALYSSA SWETHA SHEET METAL LAY OUT WORKER-C Unavailable Unavailable MICA, ALYSSA SWETHA SHEET METAL LAY OUT WORKER-C Unavailable Unavailable MICA, ALYSSA SWETHA SHEET METAL LAY OUT WORKER-C Unavailable Unavailable MICA, ALYSSA SWETHA SHEET METAL LAY OUT WORKER-C Unavailable Unavailable MICA, ALYSSA SWETHA SHEET METAL LAY OUT WORKER-C Unavailable Unavailable Mccurdy, L Rozina PA Unavailable Unavailable Mccurdy, L Rozina PA Unavailable Unavailable Mccurdy, L Rozina PA Unavailable Unavailable Mccurdy, L Rozina PA Unavailable Unavailable Mccurdy, L Rozina PA Unavailable Unavailable Mccurdy, L Rozina PA Unavailable Unavailable Mccurdy, L Rozina PA Unavailable Unavailable Mccurdy, L Rozina PA Unavailable Unavailable Mccurdy, L Rozina PA Unavailable Unavailable Mccurdy, L Rozina PA Unavailable Unavailable Mccurdy, L Rozina PA Unavailable Unavailable Mccurdy, L Rozina PA Unavailable Unavailable Mccurdy, L Rozina PA Unavailable Unavailable Mccurdy, L Rozina PA Unavailable Unavailable Mccurdy, L Rozina PA Unavailable Unavailable Mccurdy, L Rozina PA Unavailable Unavailable Mccurdy, L Rozina PA Unavailable Unavailable Mccurdy, L Rozina PA Unavailable Unavailable Mccurdy, L Rozina PA Unavailable Unavailable Mccurdy, L Rozina PA Unavailable Unavailable Mccurdy, L Rozina PA Unavailable Unavailable Mccurdy, L Rozina PA Unavailable Unavailable Mccurdy, L Rozina PA Unavailable Unavailable Mccurdy, L Rozina PA Unavailable Unavailable Mccurdy, L Rozina PA Unavailable Unavailable Mccurdy, L Rozina PA Unavailable Unavailable Mccurdy, L Rozina PA Unavailable Unavailable Mccurdy, L Rozina PA Unavailable Unavailable Mccurdy, L Rozina PA Unavailable Unavailable Mccurdy, L Rozina PA Unavailable Unavailable Mccurdy, L Rozina PA Unavailable Unavailable Mccurdy, L Rozina PA Unavailable Unavailable Mccurdy, L Rozina PA Unavailable Unavailable Mccurdy, L Rozina PA Unavailable Unavailable Mccurdy, L Rozina PA Unavailable Unavailable Mccurdy, L Rozina PA Unavailable Unavailable Mccurdy, L Rozina PA Unavailable Unavailable Mccurdy, L Rozina PA Unavailable Unavailable Mccurdy, L Rozina PA Unavailable Unavailable Salmeron, L Shakila RPA Unavailable Unavailable Salmeron, L Shakila RPA Unavailable Unavailable Salmeron, L Shakila RPA Unavailable Unavailable Salmeron, L Shakila RPA Unavailable Unavailable Salmeron, L Shakila RPA Unavailable Unavailable Salmeron, L Shakila RPA Unavailable Unavailable Salmeron, L Shakila RPA Unavailable Unavailable Salmeron, L Shakila RPA Unavailable Unavailable Salmeron, L Shakila RPA Unavailable Unavailable Salmeron, L Shakila RPA Unavailable Unavailable Salmeron, L Shakila RPA Unavailable Unavailable Salmeron, L Shakila RPA Unavailable Unavailable Salmeron, L Shakila RPA Unavailable Unavailable Salmeron, L Shakila RPA Unavailable Unavailable Salmeron, L Shakila RPA Unavailable Unavailable Salmeron, L Shakila RPA Unavailable Unavailable Salmeron, L Shakila RPA Unavailable Unavailable Salmeron, L Shakila RPA Unavailable Unavailable Salmeron, L Shakila RPA Unavailable Unavailable Salmeron, L Shakila RPA Unavailable Unavailable Salmeron, L Shakila RPA Unavailable Unavailable Salmeron, L Shakila RPA Unavailable Unavailable Salmeron, L Shakila RPA Unavailable Unavailable Salmeron, L Shakila RPA Unavailable Unavailable Salmeron, L Shakila RPA Unavailable Unavailable Salmeron, L Shakila RPA Unavailable Unavailable Salmeron, L Shakila RPA Unavailable Unavailable Salmeron, L Shakila RPA Unavailable Unavailable Salmeron, L Shakila RPA Unavailable Unavailable Salmeron, L Shakila RPA Unavailable Unavailable Salmeron, L Shakila RPA Unavailable Unavailable Salmeron, L Shakila RPA Unavailable Unavailable Re-disclosure Warning The records that you are about to access may contain information from federally-assisted alcohol or drug abuse programs. If such information is present, then the following federally mandated warning applies: This information has been disclosed to you from records protected by federal confidentiality rules (42 CFR part 2). The federal rules prohibit you from making any further disclosure of this information unless further disclosure is expressly permitted by the written consent of the person to whom it pertains or as otherwise permitted by 42 CFR part 2. A general authorization for the release of medical or other information is NOT sufficient for this purpose. The Federal rules restrict any use of the information to criminally investigate or prosecute any alcohol or drug abuse patient.The records that you are about to access may contain highly sensitive health information, the redisclosure of which is protected by Article 27-F of the [facility] Public Health law. If you continue you may have access to information: Regarding HIV / AIDS; Provided by facilities licensed or operated by the [facility] Office of Mental Health; or Provided by the [facility] Office for People With Developmental Disabilities. If such information is present, then the following [facility] mandated warning applies: This information has been disclosed to you from confidential records which are protected by state law. State law prohibits you from making any further disclosure of this information without the specific written consent of the person to whom it pertains, or as otherwise permitted by law. Any unauthorized further disclosure in violation of state law may result in a fine or nursing home sentence or both. A general authorization for the release of medical or other information is NOT sufficient authorization for further disc losure. Family History Family Member Name Family Member Gender Family Member Status Date o f Status Description Data Source(s) Unknown Unknown Problem [facility] ([facility], ) Unknown Female Problem [facility] ([facility]) Encounters Encounter Providers Location Date Indications Data Source(s ) Outpatient Attender: Randee HALE [facility] 01/14/2021 11:45:00 AM EDT MED[facility] ([facility], ) Outpatient Attender: SWETHA Brady/Jose Armando/Gordon/R eindl 01/13/2021 02:30:00 PM EDT MED[facility] ([facility], ) Outpatient Attender: LORENA Brady/Jose Armando/Gordon/Re indl 12/23/2020 03:15:00 PM EDT [facility] ([facility], ) Outpatient Attender: Rozina [email or web address] 12/2020 12:00:00 AM EDT - 11/26/2020 03:58:56 PM EDT [facility] Outpatient Attender: NORBERTO Brady/Jose Armando/Gordon/Reindl 11/15/2020 01:45:00 PM EDT MED[facility] ([facility], ) Outpatient Attender: Shakila Salmeron RPA Jose Antonio/[place]/Gordon/R eindl 11/15/2020 01:15:00 PM EDT MEDENT ([facility], ) Outpatient Attender: Fran Payan MD CPSCAORT-CPSCADER 08:50:00 AM EDT - 11/09/2020 08:51:00 AM EDT [facility] Patient discharged. Outpatient Attender: MARTIN Brenner 0 10/26/2020 03:00:00 PM EDT [facility] ([facility] ) [place] [address] [address] 10/21/2020 12:00:00 AM EDT eCW1 ([facility]) Outpatient Attender: NORBERTO Brady/Jose Armando/Gordon/Reindl 10/14/2020 11:00:00 AM EDT [facility] Outpatient Attender: Randee HALE [facility] 10/13/2020 09:00:00 AM EDT MED[facility] ([facility], ) [place] [address] [facility] [address] 09/09/2020 12:00:00 AM EDT eCW1 ([facility]) Outpatient Attender: Rozina SPENCE-SJJacobKP 05/2020 10:02:42 AM EDT - 07/19/2020 11:59:15 AM EDT [facility] Outpatient Attender: Rozina SPENCE-SJPMinhKP 08:41:30 AM EDT - 07/14/2020 09:55:42 AM EDT [facility] Outpatient Attender: Randee HALE [facility] 07/13/2020 02:30:00 PM EDT MED[facility] ([facility], ) Outpatient Attender: Shakila Brady/[place]/Gordon/R eindl 06/28/2020 10:15:00 AM EDT [facility] ([facility] Outpatient Attender: Rozina HURLEYSJPMinhKP 02/2021 09:04:42 AM EDT [facility] Outpatient Attender: Rozina SPENCE-SJPMinhKP 12:00:00 AM EDT - 06/16/2020 11:27:21 AM EDT [facility] Outpatient Attender: Alonzo Brenner 06/07 11:00:00 AM EDT MEDENT ([facility] ) Outpatient Attender: Shakila Salmeron RPA [place]/Gordon/R eindl 05/18/2020 09:15:00 AM EST [facility] ([facility]) Outpatient Attender: Shakila Salmeron RPA [place]/Gordon/R eindl 05/03/2020 08:45:00 AM EST [facility] ([facility]) Outpatient Attender: Unique Brady/[place]/Gordon/ Reindl 03/25/2020 01:15:00 PM EST [facility] ([facility] Office Visit Attender: Randee HALE Main office [facility] 03/22/2020 09:30:00 AM EST [facility] ([facility]) Outpatient Attender: Rozina HURLEYSJPMinhKP 12:00:00 AM EST - 03/17/2020 02:03:24 PM EST [facility] Outpatient Attender: Fran Payan MD CPSCAORT-CPSCADER 01:29:00 PM EST - 02/10/2020 01:30:00 PM EST [facility] Patient discharged. Outpatient Attender: Rozina SPENCE-SJPMinhKP 12:00:00 AM EST [facility] Outpatient Attender: SWETHA MULLER Jose [place]/Gordon/R eindl 01/08/2020 11:15:00 AM EDT MED[facility] ([facility] [place]) Outpatient Referrer: Rozina SPENCE-SJP.KP 12:00:00 AM EDT [facility] Outpatient Attender: Rozina SPENCE-SJP.KP 09/2019 12:00:00 AM EDT - 12/24/2019 03:43:42 PM EDT [facility] Immunizations Vaccine Date Status Description Data Source(s) COVID-19 VACCINE Pfizer 01/08/2021 12:00:00 AM EDT completed [facility] Vaccine Series Complete: YESThis Data wa s Submitted to [facility] Via [employer]. COVID-19 VACC, MRNA(PFIZER)/PF 01/08/2021 12:00:00 AM EDT completed [facility] Influenza, injectable, MDCK, preservative free, kamille valent 12/20/2020 10:33:00 AM EDT completed [facility] ([facility]) COVID-19 VACCINE Pfizer 04/19/2020 12:00:00 AM EST completed [facility] Vaccine Series Complete: NOThis Data was Submitted to [facility] Via [employer]. Medications Medication Brand Name Start Date Product Form Dose Route Admi nistrative Instructions Pharmacy Instructions Status Indications Reaction Description Data Source(s) SUPREP BOWEL PREP KIT 17.5-3.13-1.6 gram SODIUM, POTASSIUM,M AG SULFATES 02/03/2021 12:00:00 AM EST [facility] 354 USE A S DIRECTED PER DOCTOR'S BOWEL PREP INSTRUCTIONS USE DIRECTED PER DOCTOR'S BOWEL PREP INSTRUCTIONS S OLD: 02/13/2021 [facility] 4 mg 01/17/2021 12:00:00 AM EDT tablet 90 TAKE ONE TABLET BY MOUTH NIGHTLY TAKE ONE TABLET BY MOUTH NIGHTLY SOLD: 01/18/2021 [facility] SUPREP BOWEL PREP KIT 17.5-3.13-1.6 gram SODIUM, POTASSIUM,M AG SULFATES 12/28/2020 12:00:00 AM EDT [facility] 354 TAKE PER DOCTOR'S BOWEL PREP INSTRUCTIONS TAKE PER DOCTOR'S BOWEL PREP INSTRUCTIONS SOLD: 01/04/2021 [facility] Suprep Bowel Prep Kit Suprep Bowel Prep Kit 12/27/2020 12:00:00 AM EDT active [facility] ([facility], ) Administration Of Flu Vaccine 12/20/2020 12:00:00 AM EDT completed [facility] ([facility]) Medication administered onsite 25 mg 12/15/2020 12:00:00 AM EDT tablet 90 TAKE ONE TABLET BY MOUTH EVERY DAY TAKE ONE TABLET BY MOUTH EVERY DAY SOLD: 12/17/2020 [facility] 10 mg 12/14/2020 12:00:00 AM EDT tablet 90 TAKE ONE TABLET BY MOUTH EVERY DAY TAKE ONE TABLET BY MOUTH EVERY DAY SOLD: 12/14/2020 [facility] 300 mg 11/17/2020 12:00:00 AM EDT tablet 90 TAKE ONE TABLET BY MOUTH EVERY DAY TAKE ONE TABLET BY MOUTH EVERY DAY SOLD: 11/19/2020 [facility] 80 mg 11/17/2020 12:00:00 AM EDT tablet 90 TAKE ONE TABLET BY MOUTH EVERY DAY TAKE ONE TABLET BY MOUTH EVERY DAY SOLD: 11/19/2020 [facility] 25 mg 11/11/2020 12:00:00 AM EDT tablet 90 TAKE ONE TABLET BY MOUTH EVERY DAY TAKE ONE TABLET BY MOUTH EVERY DAY SOLD: 11/13/2020 [facility] Chlorthalidone 25 MG Oral Tablet chlorthalidone (HYGRO TEN) 25 MG tablet chlorthalidone (HYGROTEN) 25 MG tablet 11/11/2020 12:00:00 AM EDT active TAKE ONE TABLET BY MOUTH EVERY D AY [facility] Ketoconazole 20 MG/ML Medicated Shampoo KETOCONAZOLE 11/10/19 12:00:00 AM EDT shampoo 240 APPLY TO SCALP, FACE, NECK, AND BACK ONCE DAILY APPLY TO SCALP, FACE, NECK, AND BACK ONCE DAILY SOLD: 11/10/2020 [facility] 0.1 % 11/09/2020 12:00:00 AM EDT cream 454 APPLY TO AFFECTED AREA(S) WHEN FLARED TWO TIMES A DAY SUNDAY- SUNDAY APPLY TO AFFECTED AREA(S) WHEN FLARED TW O TIMES A DAY SUNDAY- SUNDAY SOLD: 11/10/2020 [facility] 5 mg 10/21/2020 12:00:00 AM EDT tablet 90 TAKE ONE TABLET BY MOUTH EVERY DAY TAKE ONE TABLET BY MOUTH EVERY DAY SOLD: 11/05/2020 [facility] Oxybutynin chloride 5 MG Oral Tablet OXYBUTYNIN CHLORIDE 07/2020 12:00:00 AM EDT tablet 90 TAKE ONE TABLET BY MOUTH DELIO DAY TAKE ONE TABLET BY MOUTH EVERY DAY SOLD: 02/13/2021 [facility] 75 mg 10/14/2020 12:00:00 AM EDT tablet 90 TAKE ONE TABLET BY MOUTH EVERY DAY TAKE ONE TABLET BY MOUTH EVERY DAY SOLD: 10/16/2020 [facility] clopidogrel 75 MG Oral Tablet Clopidogrel Bisulfate 10/14/2020 1 2:00:00 AM EDT ORAL completed [facility] ([facility], ) 75 mg 10/14/2020 12:00:00 AM EDT tablet 90 TAKE ONE TABLET BY MOUTH EVERY DAY TAKE ONE TABLET BY MOUTH EVERY DAY SOLD: 01/21/2021 [facility] clopidogrel 75 MG Oral Tablet Clopidogrel Bisulfate 10/14/2020 1 2:00:00 AM EDT ORAL active MED[facility] ( [facility], ) 2 mg 10/07/2020 12:00:00 AM EDT tablet 270 TAKE ONE TABLET BY MOUTH THREE TIMES A DAY TAKE ONE TABLET BY MOUTH THREE TIMES A DAY SOLD: 10/08/2020 [facility] 2 mg 10/07/2020 12:00:00 AM EDT tablet 270 TAKE ONE TABLET BY MOUTH THREE TIMES A DAY TAKE ONE TABLET BY MOUTH THREE TIMES A DAY SOLD: 01/18/2021 [facility] 0.5 mL 31 gauge x 5/16" 09/29/2020 12:00:00 AM EDT syringe 200 USE DIRECTED TWO TIMES A DAY USE DIRECTED TWO TIMES A DAY SOLD: 09/29/2020 [facility] Oxybutynin chloride 5 MG Oral Tablet Oxybutynin Chlori de 5 MG Oxybutynin Chloride 5 MG 09/09/2020 12:00:00 AM EDT 1.0 {tablet} active Oxybutynin Chloride 5 MG eCW1 ([facility]) 5 mg 09/09/2020 12:00:00 AM EDT tablet 60 TAKE ONE TABLET BY MOUTH TWICE A DAY TAKE ONE TABLET BY MOUTH TWICE A DAY SOLD: 09/10/2020 [facility] Oxybutynin chloride 5 MG Oral Tablet Oxybutynin Chlori de 5 MG Oxybutynin Chloride 5 MG 09/09/2020 12:00:00 AM EDT 1.0 {tablet} active Oxybutynin Chloride 5 MG eCW1 ([facility]) 20 mg 08/10/2020 12:00:00 AM EDT tablet 90 TAKE ONE TABLET BY MOUTH EVERY DAY TAKE ONE TABLET BY MOUTH EVERY DAY SOLD: 02/13/2021 [facility] 25 mg 08/10/2020 12:00:00 AM EDT tablet 90 TAKE ONE TABLET BY MOUTH EVERY DAY TAKE ONE TABLET BY MOUTH EVERY DAY SOLD: 08/13/2020 [facility] 20 mg 08/10/2020 12:00:00 AM EDT tablet 90 TAKE ONE TABLET BY MOUTH EVERY DAY TAKE ONE TABLET BY MOUTH EVERY DAY SOLD: 11/10/2020 [facility] 20 mg 08/10/2020 12:00:00 AM EDT tablet 90 TAKE ONE TABLET BY MOUTH EVERY DAY TAKE ONE TABLET BY MOUTH EVERY DAY SOLD: 08/13/2020 [facility] 0.005 % 08/07/2020 12:00:00 AM EDT drops 7 INSTILL 1 DROP INTO BOTH EYES AT BEDTIME DIRECTED INSTILL 1 DROP INTO BOTH EYES AT BEDTIME DIRECTED S OLD: 02/13/2021 [facility] 0.005 % 08/07/2020 12:00:00 AM EDT drops 7 INSTILL 1 DROP INTO BOTH EYES AT BEDTIME DIRECTED INSTILL 1 DROP INTO BOTH EYES AT BEDTIME DIRECTED S OLD: 08/13/2020 [facility] 4 mg 07/14/2020 12:00:00 AM EDT tablet 90 TAKE ONE TABLET BY MOUTH EVERY EVENING TAKE ONE TABLET BY MOUTH EVERY EVENING SOLD: 07/15/2020 [facility] 4 mg 07/14/2020 12:00:00 AM EDT tablet 90 TAKE ONE TABLET BY MOUTH EVERY EVENING TAKE ONE TABLET BY MOUTH EVERY EVENING SOLD: 10/20/2020 [facility] Doxazosin 4 MG Oral Tablet doxazosin (CARDURA) 4 MG ta blet doxazosin (CARDURA) 4 MG tablet 07/14/2020 12:00:00 AM EDT 4 mg Oral act anahi Hypertension, essential Take 1 tablet (4 mg total) by mouth melissa d[facility] Hypertension, essential 1,000 mcg/mL 07/13/2020 12:00:00 AM EDT solution 3 INJECT 1 ML INTRAMUSCULARLY EVERY MONTH INJECT 1 ML INTRAMUSCULARLY EVERY MONTH SOLD: 07/15/2020 [facility] 0.5 % 07/13/2020 12:00:00 AM EDT drops, once daily 10 INSTILL ONE DROP IN EACH EYE ONCE DAILY IN THE MORNING DIRECTED INSTILL ONE DROP IN EACH EYE ONCE DAILY IN THE MORNING DIRECTED SOLD: 07/15/2020 [facility] 1,000 mcg/mL 07/13/2020 12:00:00 AM EDT solution 9 INJECT 1 ML INTRAMUSCULARLY EVERY MONTH INJECT 1 ML INTRAMUSCULARLY EVERY MONTH SOLD: 12/03/2020 [facility] 0.5 % 07/13/2020 12:00:00 AM EDT drops, once daily 10 INSTILL ONE DROP IN EACH EYE ONCE DAILY IN THE MORNING DIRECTED INSTILL ONE DROP IN EACH EYE ONCE DAILY IN THE MORNING DIRECTED SOLD: 01/04/2021 [facility] 0.5 mL 31 gauge x 5/16" 07/03/2020 12:00:00 AM EDT syringe 100 USE ONCE DAILY DIRECTED USE ONCE DAILY DIRECTED SOLD: 07/04/2020 [facility] Spironolactone 25 MG Oral Tablet spironolactone (ALDAC TONE) 25 MG tablet spironolactone (ALDACTONE) 25 MG tablet 06/16/2020 12:00:00 AM EDT 25 mg Oral active Hypertension, essential Take 1 table t (25 mg total) by mouth daily [facility] Hypertension, essential 25 mg 06/16/2020 12:00:00 AM EDT tablet 90 TAKE ONE TABLET BY MOUTH EVERY DAY TAKE ONE TABLET BY MOUTH EVERY DAY SOLD: 09/10/2020 [facility] 25 mg 06/16/2020 12:00:00 AM EDT tablet 90 TAKE ONE TABLET BY MOUTH EVERY DAY TAKE ONE TABLET BY MOUTH EVERY DAY SOLD: 06/17/2020 [facility] Insulin Glargine 100 UNT/ML Injectable Solution [Lantu s] INSULIN GLARGINE,HUM.REC.ANLOG 06/11/2020 12:00:00 AM EDT solution 30 INJECT 30 UNITS UNDER THE SKIN ONCE DAILY (DISCARD VIAL AFTER 28 DAYS) INJECT 30 UNITS UNDER THE SKIN ONCE DAILY (DISCARD VIAL AFTER 28 DAYS) SOLD: 12/11/2020 [facility] Insulin Glargine 100 UNT/ML Injectable Solution [Lantu s] INSULIN GLARGINE,HUM.REC.ANLOG 06/11/2020 12:00:00 AM EDT solution 30 INJECT 30 UNITS UNDER THE SKIN ONCE DAILY (DISCARD VIAL AFTER 28 DAYS) INJECT 30 UNITS UNDER THE SKIN ONCE DAILY (DISCARD VIAL AFTER 28 DAYS) SOLD: 09/10/2020 [facility] 100 unit/mL 06/11/2020 12:00:00 AM EDT solution 30 INJECT 30 UNITS UNDER THE SKIN ONCE DAILY (DISCARD VIAL AFTER 28 DAYS) INJECT 30 UNITS UNDER THE SKIN ONCE DAILY (DISCARD VIAL AFTER 28 DAYS) SOLD: 06/11/2020 [facility] Nystatin 040354 UNT/ML / Triamcinolone A cetonide 1 MG/ML Topical Cream nystatin- triamcinolone (MYCOLOG II) cream nystatin-triamcinolone (MYCOLOG II) cream 06/07/2020 12:00:00 AM EDT active 2 (two) times a day [facility] Nystatin 019024 UNT/ML / Triamcinolone A cetonide 1 MG/ML Topical Cream 100,000- 0.1 unit/g-% NYSTATIN/TRIAMCINOLONE ACETONIDE 06/07/2020 12:00:00 AM EDT crea m 15 APPLY A SMALL AMOUNT TO AFFECTED AREA TW O TIMES A DAY UNTIL RESOLVED APPLY A SMALL AMOUNT TO AFFECTED AREA TWO TIMES A DAY UNTIL RESOLVED SOLD: 06/11/2020 [facility] 40 mg 05/21/2020 12:00:00 AM EST capsule,delayed release (DR/EC) 90 TAKE ONE CAPSULE BY MOUTH EVERY DAY TAKE ONE CAPSULE BY MOUTH EVERY DAY SOLD: 02/13/2021 [facility] 40 mg 05/21/2020 12:00:00 AM EST capsule,delayed release (DR/EC) 90 TAKE ONE CAPSULE BY MOUTH EVERY DAY TAKE ONE CAPSULE BY MOUTH EVERY DAY SOLD: 08/19/2020 [facility] 40 mg 05/21/2020 12:00:00 AM EST capsule,delayed release (DR/EC) 90 TAKE ONE CAPSULE BY MOUTH EVERY DAY TAKE ONE CAPSULE BY MOUTH EVERY DAY SOLD: 11/19/2020 [facility] 40 mg 05/21/2020 12:00:00 AM EST capsule,delayed release (DR/EC) 90 TAKE ONE CAPSULE BY MOUTH EVERY DAY TAKE ONE CAPSULE BY MOUTH EVERY DAY SOLD: 05/21/2020 [facility] 75 mg 05/11/2020 12:00:00 AM EST tablet 30 TAKE ONE TABLET BY MOUTH EVERY DAY TAKE ONE TABLET BY MOUTH EVERY DAY SOLD: 06/11/2020 [facility] 75 mg 05/11/2020 12:00:00 AM EST tablet 30 TAKE ONE TABLET BY MOUTH EVERY DAY TAKE ONE TABLET BY MOUTH EVERY DAY SOLD: 05/13/2020 [facility] Covid-19 vaccine, Unspecified 05/10/2020 12:00:00 AM EST completed [facility] Medication administered onsite Covid-19 vaccine, Unspecified 04/19/2020 12:00:00 AM EST completed [facility]) Medication administered onsite BLOOD SUGAR DIAGNOSTIC 04/07/2020 12:00:00 AM EST strip 100 USE TO TEST TWO TIMES A DAY USE TO TEST TWO TIMES A DAY SOLD: 09/10/2020 [facility] BLOOD SUGAR DIAGNOSTIC 04/07/2020 12:00:00 AM EST strip 100 USE TO TEST TWO TIMES A DAY USE TO TEST TWO TIMES A DAY SOLD: 04/09/2020 [facility] BLOOD SUGAR DIAGNOSTIC 04/07/2020 12:00:00 AM EST strip 100 USE TO TEST TWO TIMES A DAY USE TO TEST TWO TIMES A DAY SOLD: 07/01/2020 [facility] BLOOD SUGAR DIAGNOSTIC 04/07/2020 12:00:00 AM EST strip 100 USE TO TEST TWO TIMES A DAY USE TO TEST TWO TIMES A DAY SOLD: 01/04/2021 [facility] 2 mg 03/25/2020 12:00:00 AM EST tablet 270 TAKE ONE TABLET BY MOUTH THREE TIMES A DAY TAKE ONE TABLET BY MOUTH THREE TIMES A DAY SOLD: 03/27/2020 [facility] 2 mg 03/25/2020 12:00:00 AM EST tablet 270 TAKE ONE TABLET BY MOUTH THREE TIMES A DAY TAKE ONE TABLET BY MOUTH THREE TIMES A DAY SOLD: 07/10/2020 [facility] 4 mg 03/18/2020 12:00:00 AM EST tablet 30 TAKE ONE TABLET BY MOUTH NIGHTLY TAKE ONE TABLET BY MOUTH NIGHTLY SOLD: 06/11/2020 [facility] 4 mg 03/18/2020 12:00:00 AM EST tablet 30 TAKE ONE TABLET BY MOUTH NIGHTLY TAKE ONE TABLET BY MOUTH NIGHTLY SOLD: 03/20/2020 [facility] 4 mg 03/18/2020 12:00:00 AM EST tablet 30 TAKE ONE TABLET BY MOUTH NIGHTLY TAKE ONE TABLET BY MOUTH NIGHTLY SOLD: 05/13/2020 [facility] Doxazosin 4 MG Oral Tablet doxazosin (CARDURA) 4 MG ta blet doxazosin (CARDURA) 4 MG tablet 03/17/2020 12:00:00 AM EST 4 mg Oral ac tive Hypertension, essential Take 1 tablet (4 mg total) by mouth [facility]issa d[facility] Hypertension, essential Ketoconazole 20 MG/ML Medicated Shampoo KETOCONAZOLE 02/20/20 12:00:00 AM EST shampoo 240 APPLY TO SCALP, FACE ONCE DAILY APPLY TO SCALP, FACE ONCE DAILY SOLD: 06/24/2020 [facility] 5 % 02/20/2020 12:00:00 AM EST cream 40 APPLY TO BOTTOM LIP TWO TIMES A DAY APPLY TO BOTTOM LIP TWO TIMES A DAY SOLD: 02/21/2020 [facility] 1 mg 02/20/2020 12:00:00 AM EST tablet 90 TAKE TWO TABLETS BY MOUTH THREE TIMES A DAY TAKE TWO TABLETS BY MOUTH THREE TIMES A DAY SOLD: 2020 [facility] 0.1 % 02/20/2020 12:00:00 AM EST cream 454 APPLY TO AFFECTED AREA(S) TWO TIMES A DAY SUNDAY-SUNDAY APPLY TO AFFECTED AREA(S) TWO TIMES A DA Y SUNDAY-SUNDAY SOLD: 02/21/2020 [facility] 1 mg 02/20/2020 12:00:00 AM EST tablet 90 TAKE TWO TABLETS BY MOUTH THREE TIMES A DAY TAKE TWO TABLETS BY MOUTH THREE TIMES A DAY SOLD: 03/07/2020 [facility] Ketoconazole 20 MG/ML Medicated Shampoo ketoconazole ( NIZORAL) 2 % shampoo ketoconazole (NIZORAL) 2 % shampoo 02/20/2020 12:00:00 AM EST active APPLY TO SCALP FACE ONCE DAILY [facility] Triamcinolone Acetonide 1 MG/ML Topical Cream triamcinolone (KENALOG) 0.1 % cream triamcinolone (KENALOG) 0.1 % cream 02/20/2020 12:00:00 AM EST active APPLY TO AFFECTED AREA S TWO TI MES A DAY Sunday [facility] Ketoconazole 20 MG/ML Medicated Shampoo KETOCONAZOLE 02/20/20 12:00:00 AM EST shampoo 240 APPLY TO SCALP, FACE ONCE DAILY APPLY TO SCALP, FACE ONCE DAILY SOLD: 10/08/2020 [facility] Fluorouracil 50 MG/ML Topical Cream fluorouracil (EFUD EX) 5 % cream fluorouracil (EFUDEX) 5 % cream 02/20/2020 12:00:00 AM EST active APPLY TO BOTTOM LIP TWO TIMES A DAY [facility] 1 mg 02/20/2020 12:00:00 AM EST tablet 90 TAKE TWO TABLETS BY MOUTH THREE TIMES A DAY TAKE TWO TABLETS BY MOUTH THREE TIMES A DAY SOLD: 02/21/2020 [facility] 0.1 % 02/20/2020 12:00:00 AM EST cream 454 APPLY TO AFFECTED AREA(S) TWO TIMES A DAY SUNDAY-SUNDAY APPLY TO AFFECTED AREA(S) TWO TIMES A DA Y SUNDAY-SUNDAY SOLD: 06/24/2020 [facility] Ketoconazole 20 MG/ML Medicated Shampoo KETOCONAZOLE 02/20/20 12:00:00 AM EST shampoo 240 APPLY TO SCALP, FACE ONCE DAILY APPLY TO SCALP, FACE ONCE DAILY SOLD: 02/21/2020 [facility] 2 mg 02/06/2020 12:00:00 AM EST tablet 30 TAKE ONE TABLET BY MOUTH EVERY DAY AT BEDTIME TAKE ONE TABLET BY MOUTH EVERY DAY AT BEDTIME SOLD: 02/06/2020 [facility] 2 mg 02/06/2020 12:00:00 AM EST tablet 30 TAKE ONE TABLET BY MOUTH EVERY DAY AT BEDTIME TAKE ONE TABLET BY MOUTH EVERY DAY AT BEDTIME SOLD: 03/08/2020 [facility] Doxazosin 2 MG Oral Tablet doxazosin (CARDURA) 2 MG ta blet doxazosin (CARDURA) 2 MG tablet 02/05/2020 12:00:00 AM EST 2 mg Oral ab orted Hypertension, essential Take 1 tablet (2 mg total) by mouth melissa dukes [facility] Hypertension, essential 25 mg 01/29/2020 12:00:00 AM EST tablet 90 TAKE ONE TABLET BY MOUTH EVERY DAY TAKE ONE TABLET BY MOUTH EVERY DAY SOLD: 05/13/2020 [facility] 25 mg 01/29/2020 12:00:00 AM EST tablet 90 TAKE ONE TABLET BY MOUTH EVERY DAY TAKE ONE TABLET BY MOUTH EVERY DAY SOLD: 01/30/2020 [facility] Chlorthalidone 25 MG Oral Tablet chlorthalidone (HYGRO TEN) 25 MG tablet chlorthalidone (HYGROTEN) 25 MG tablet 01/28/2020 12:00:00 AM EST 2 5 mg Oral active Hypertension, essential Take 1 table t (25 mg total) by mouth daily [facility] Hypertension, essential latanoprost 0.05 MG/ML Ophthalmic Soluti on latanoprost (XALATAN) 0.005 % ophthalmic solution latanoprost (XALATAN) 0.005 % ophthalmic solution 09/2019 12:00:00 AM EST active INSTILL 1 DROP INTO BOTH EYES AT BEDTIME DIRECTED [facility] Doxazosin 1 MG Oral Tablet doxazosin (CARDURA) 1 MG ta blet doxazosin (CARDURA) 1 MG tablet 01/14/2020 12:00:00 AM EDT 1 mg Oral ab orted Hypertension, essential Take 1 tablet (1 mg total) by mouth elvi howard [facility] Hypertension, essential Doxazosin 1 MG Oral Tablet DOXAZOSIN MESYLATE 01/14/2020 12:00:00 A M EDT tablet 30 TAKE ONE TABLET BY MOUTH EVERY DAY TAKE ONE TABL ET BY MOUTH EVERY DAY SOLD: 01/16/2020 [facility] 25 mg 12/24/2019 12:00:00 AM EDT tablet 30 TAKE ONE TABLET BY MOUTH EVERY DAY TAKE ONE TABLET BY MOUTH EVERY DAY SOLD: 12/25/2019 [facility] Metformin hydrochloride 1000 MG Oral Tablet 1,000 mg METFORM IN HCL 12/10/2019 12:00:00 AM EDT tablet 180 TAKE ONE TABLET BY MOUTH TWICE A DAY TAKE ONE TABLET BY MOUTH TWICE A DAY SOLD: 06/11/2020 [facility] 1 mg 12/10/2019 12:00:00 AM EDT tablet 90 TAKE TWO TABLETS BY MOUTH THREE TIMES A DAY TAKE TWO TABLETS BY MOUTH THREE TIMES A DAY SOLD: 01/03/2020 [facility] 1 mg 12/10/2019 12:00:00 AM EDT tablet 90 TAKE TWO TABLETS BY MOUTH THREE TIMES A DAY TAKE TWO TABLETS BY MOUTH THREE TIMES A DAY SOLD: 01/20/2020 [facility] 1,000 mg 12/10/2019 12:00:00 AM EDT tablet 180 TAKE ONE TABLET BY MOUTH TWICE A DAY TAKE ONE TABLET BY MOUTH TWICE A DAY SOLD: 09/10/2020 [facility] 10 mg 12/10/2019 12:00:00 AM EDT tablet 90 TAKE ONE TABLET BY MOUTH EVERY DAY TAKE ONE TABLET BY MOUTH EVERY DAY SOLD: 03/13/2020 [facility] 1 mg 12/10/2019 12:00:00 AM EDT tablet 90 TAKE TWO TABLETS BY MOUTH THREE TIMES A DAY TAKE TWO TABLETS BY MOUTH THREE TIMES A DAY SOLD: 02/04/2020 [facility] 10 mg 12/10/2019 12:00:00 AM EDT tablet 90 TAKE ONE TABLET BY MOUTH EVERY DAY TAKE ONE TABLET BY MOUTH EVERY DAY SOLD: 06/11/2020 [facility] Metformin hydrochloride 1000 MG Oral Tablet 1,000 mg METFORM IN HCL 12/10/2019 12:00:00 AM EDT tablet 180 TAKE ONE TABLET BY MOUTH TWICE A DAY TAKE ONE TABLET BY MOUTH TWICE A DAY SOLD: 03/13/2020 [facility] 10 mg 12/10/2019 12:00:00 AM EDT tablet 90 TAKE ONE TABLET BY MOUTH EVERY DAY TAKE ONE TABLET BY MOUTH EVERY DAY SOLD: 09/10/2020 [facility] 80 mg 11/25/2019 12:00:00 AM EDT tablet 90 TAKE ONE TABLET BY MOUTH EVERY DAY TAKE ONE TABLET BY MOUTH EVERY DAY SOLD: 02/21/2020 [facility] atorvastatin 80 MG Oral Tablet ATORVASTATIN CALCIUM 11/25/2019 1 2:00:00 AM EDT tablet 90 TAKE ONE TABLET BY MOUTH EVERY D AY TAKE ONE TABLET BY MOUTH EVERY DAY SOLD: 05/25/2020 [facility] 300 mg 11/25/2019 12:00:00 AM EDT tablet 87 TAKE ONE TABLET BY MOUTH EVERY DAY TAKE ONE TABLET BY MOUTH EVERY DAY SOLD: 06/03/2020 [facility] 80 mg 11/25/2019 12:00:00 AM EDT tablet 90 TAKE ONE TABLET BY MOUTH EVERY DAY TAKE ONE TABLET BY MOUTH EVERY DAY SOLD: 08/19/2020 [facility] 300 mg 11/25/2019 12:00:00 AM EDT tablet 90 TAKE ONE TABLET BY MOUTH EVERY DAY TAKE ONE TABLET BY MOUTH EVERY DAY SOLD: 02/21/2020 [facility] 300 mg 11/25/2019 12:00:00 AM EDT tablet 90 TAKE ONE TABLET BY MOUTH EVERY DAY TAKE ONE TABLET BY MOUTH EVERY DAY SOLD: 08/30/2020 [facility] Insulin Glargine 100 UNT/ML Injectable S olution [Lantus] LANTUS 100 UNIT/ML injection LANTUS 100 UNIT/ML injection 09/22/2019 12:00:00 AM EDT aborted INJECT 30 UNITS UNDE R THE SKIN ONCE DAILY DISCARD VIAL AFTER 28 DAYS [facility] 0.005 % 09/05/2019 12:00:00 AM EDT drops 7 INSTILL 1 DROP INTO BOTH EYES AT BEDTIME DIRECTED INSTILL 1 DROP INTO BOTH EYES AT BEDTIME DIRECTED S OLD: 06/24/2020 [facility] 0.005 % 09/05/2019 12:00:00 AM EDT drops 7 INSTILL 1 DROP INTO BOTH EYES AT BEDTIME DIRECTED INSTILL 1 DROP INTO BOTH EYES AT BEDTIME DIRECTED S OLD: 01/24/2020 [facility] 20 mg 08/18/2019 12:00:00 AM EDT tablet 90 TAKE ONE TABLET BY MOUTH EVERY DAY TAKE ONE TABLET BY MOUTH EVERY DAY SOLD: 05/13/2020 [facility] 20 mg 08/18/2019 12:00:00 AM EDT tablet 90 TAKE ONE TABLET BY MOUTH EVERY DAY TAKE ONE TABLET BY MOUTH EVERY DAY SOLD: 02/13/2020 [facility] 28 gauge 06/24/2019 12:00:00 AM EDT misc 200 USE TO TEST TWO TIMES A DAY USE TO TEST TWO TIMES A DAY SOLD: 01/03/2020 [facility] BLOOD SUGAR DIAGNOSTIC 06/24/2019 12:00:00 AM EDT strip 100 USE TO TEST TWO TIMES A DAY USE TO TEST TWO TIMES A DAY SOLD: 01/03/2020 [facility] 28 gauge 06/24/2019 12:00:00 AM EDT misc 200 USE TO TEST TWO TIMES A DAY USE TO TEST TWO TIMES A DAY SOLD: 08/19/2020 [facility] 0.5 % 06/11/2019 12:00:00 AM EDT drops, once daily 7 INSTILL ONE DROP INTO EACH EYE EVERY MORNING DIRECTED INSTILL ONE DROP INTO EACH EYE EVERY MOR LEX DIRECTED SOLD: 01/30/2020 [facility] 40 mg 05/28/2019 12:00:00 AM EDT capsule,delayed release (DR/EC) 60 TAKE ONE CAPSULE BY MOUTH EVERY DAY TAKE ONE CAPSULE BY MOUTH EVERY DAY SOLD: 03/20/2020 [facility] Esomeprazole 40 MG Delayed Release Oral Capsule ESOMEPRAZOLE MAGNESIUM 05/28/2019 12:00:00 AM EDT capsule,delayed release(DR/EC) 60 TAKE ONE CAPSULE BY MOUTH EVERY DAY TAKE ONE CAPSULE BY MOUTH EVERY DAY SOLD: 01/20/2020 [facility] 0.5 mL 31 gauge x 5/16" 05/09/2019 12:00:00 AM EST syringe 100 USE ONCE DAILY DIRECTED USE ONCE DAILY DIRECTED SOLD: 01/03/2020 [facility] 0.5 mL 31 gauge x 5/16" 05/09/2019 12:00:00 AM EST syringe 100 USE ONCE DAILY DIRECTED USE ONCE DAILY DIRECTED SOLD: 03/27/2020 [facility] 100 unit/mL 04/03/2019 12:00:00 AM EST solution 30 INJECT 30 UNITS UNDER THE SKIN ONCE DAILY (DISCARD VIAL AFTER 28 DAYS) INJECT 30 UNITS UNDER THE SKIN ONCE DAILY (DISCARD VIAL AFTER 28 DAYS) SOLD: 03/13/2020 [facility] 100 unit/mL 04/03/2019 12:00:00 AM EST solution 30 INJECT 30 UNITS UNDER THE SKIN ONCE DAILY (DISCARD VIAL AFTER 28 DAYS) INJECT 30 UNITS UNDER THE SKIN ONCE DAILY (DISCARD VIAL AFTER 28 DAYS) SOLD: 12/25/2019 [facility] Latanoprost (XALATAN OP) 01/18/2012 12:00:00 AM EDT aborted GAMAL ZARAGOZA [facility] Insurance Providers Payer name Policy type / Coverage type Policy ID Covered constitution party ID Covered constitution party's relationship to [place] Policy [place] Plan Information Medicare Natl Govt Servic Medicare Primary [id number] Self [id number] Medicare Natl Govt Servic Medicare Primary [id number] Self Medicare Natl Govt Servic Medicare Primary [id number] Self [id number] Medicare Natl Govt Servic Medicare Primary [id number] Self [id number] Medicare Natl Govt Servic Medicare Primary [id number] Self [id number] [facility] Medicare Commercial [id number] Self [id number] [facility] MEDICARE [id number] Jessie [id number] Medicare Blue Ppo Commercial [id number] Self [id number] [facility] MEDICARE Medicare [id number] [id number] Medicare Blue Ppo Commercial [id number] Self [id number] Medicare Blue Ppo Commercial [id number] Self [id number] Medicare Blue Ppo Commercial [id number] Self [id number] MEDICARE BLUE PPO 306 [id number] SP [id number] Medicare Blue Ppo Commercial [id number] Self [id number] MEDICARE BLUE PPO 306 [id number] SP [id number] MEDICARE BLUE PPO 306 [id number] SP [id number] Medicare Blue Commercial [id number] Self [id number] MEDICARE BLUE PPO 306 [id number] SP [id number] BLUE CROSS -PHYSICIAN UNAVAILABLE 18 UNAVAILABLE [employer]CELLUS MEDICARE ADVANTAGE -O/P [id number] 18 [id number] [employer] MEDICARE ADVANTAGE -O/P [id number] 18 [id number] MEDICARE S [id number] S [id number] A MVP HEALTH CARE P [id number] S [id number] [facility] PHY [id number] SP [id number] MVP -O/P [id number] 18 [id number] MVP GOLD [id number] SP [id number] MVP GOLD [id number] SP [id number] MVP GOLD UNAVAILABLE SP UNAVAILA BLE [facility] PHY UNAVAILABLE SP UNAVAILABLE [id number] SP [id number] MEDICARE [id number] SP [id number] MEDICARE BLUE PPO 306 [id number] SP [id number] MEDICARE BLUE PPO 306 [id number] SP [id number] MEDICARE BLUE PPO 306 [id number] SP [id number] [employer]UE [employer] MEDICARE ADVANTAGE [id number] Retired [id number] [employer] BCBS B [id number] S [id number] ANSI-Medicare Part B [id number] [employer]CE[employer] BC-BS PPO 306 [id number] SP [id number] [employer] BC-BS PPO 306 [id number] SP [id number] MEDICARE BLUE PPO 306 [id number] SP [id number] ANSI-Commercial [id number] ANSI-Medicare Part B [id number] MEDICARE [id number] ANSI-Medicare Part B [id number] ANSI-[id number] [id number] Medicare Blue Ppo Commercial [id number] Self [id number] BC/BS Of [facility] Part B [id number] Self [id number] Medicare - NGS Medicare Primary [id number] Self [id number] Problems, Conditions, and Diagnoses Code Display Name Description Problem Type Effective Dates Data Source(s) R01.1 Cardiac murmur, unspecified Cardiac murmur, unspecifie d Diagnosis 11/26/2020 02:33:09 PM EDT [facility] R00.1 Bradycardia, unspecified Bradycardia, unspecified Diag nosis 11/26/2020 02:33:09 PM EDT [facility] Z95.5 Presence of coronary angioplasty implant and graft Presence of coronary angioplasty implant Diagnosis 11/26/2020 02:33:09 PM EDT [facility] I73.9 Peripheral vascular disease, unspecified Peripheral vascular disease, unspecified Diagnosis 11/26/2020 02:33:09 PM EDT [facility] E11.51 Type 2 diabetes mellitus wit h diabetic peripheral angiopathy without gangrene Type 2 diabetes mellitus with diabetic p Diagnosis 11/26/2020 02:33:09 PM EDT [facility] E78.2 Mixed hyperlipidemia Mixed hyperlipidemia Diagnosis 11/26/2020 02:33:09 PM EDT [facility] Z01.810 Encounter for preprocedural cardiovascul ar examination Encounter for preprocedural cardiovascul Diagnosis 11/26/2020 02:33:09 PM EDT [facility] L21.8 Other seborrheic dermatitis OTHER SEBORRHEIC DERMATITI S Diagnosis 11/09/2020 08:50:00 AM EDT [facility] L40.0 Psoriasis vulgaris PSORIASIS VULGARIS Diagnosis 08:50:00 AM EDT [facility] I10 Essential (primary) hypertension Essential (primary) h ypertension Diagnosis 07/19/2020 10:02:42 AM EDT [facility] L57.0 Actinic keratosis ACTINIC KERATOSIS Diagnosis 02/10/2020 01:29:00 PM EST [facility] I25.10 Atherosclerosis of coronary artery witho ut angina pectoris Atherosclerosis of coronary artery without angina pectoris Problem 12/23/2020 12:00:00 AM EDT [facility] ([facility], ) E66.01 Morbid obesity Morbid obesity Problem 12/23/2020 12:00: 00 AM EDT [facility] ([facility], ) 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 Idiopathic osteoarthritis Pr oblem 12/23/2020 12:00:00 AM EDT [facility] ([facility], ) R19.7 Diarrhea Diarrhea Problem 12/23/2020 12:00:00 AM ED T [facility] ([facility], ) I70.202 Atherosclerosis of arteries of the extre mities Atherosclerosis of arteries of the extremities Problem 12/23/2020 12:00:00 AM EDT [facility] ([facility], ) Z01.818 Pre-op examination Pre-op examination [id number] 01/2021 12:00:00 AM EDT [facility] R01.1 Murmur, cardiac Murmur, cardiac [id number] 11/26/2020 12:0 0:00 AM EDT [facility] R00.1 Bradycardia Bradycardia [id number] 07/14/2020 12:00:00 AM EDT [facility] I73.9 PVD (peripheral vascular disease) PVD (periphera l vascular disease) [id number] 06/17/2020 12:00:00 AM EDT [facility] I73.9 Claudication Claudication [id number] 02/05/2020 12:00:00 A M EST [facility] Surgeries/Procedures Procedure Description Date Indications Data Source(s) OFFICE OUTPATIENT VISIT 25 MINUTES 01/14/2021 12:00:00 AM EDT [facility] ([facility], ) OFFICE OUTPATIENT VISIT 15 MINUTES 01/13/2021 12:00:00 AM EDT [facility] ([facility], ) OFFICE OUTPATIENT VISIT 25 MINUTES 12/23/2020 12:00:00 AM EDT [facility] ([facility], ) Revascularization,Endovascular W/Atherectomy, Inc Angioplast y 12/07/2020 12:00:00 AM EDT [facility] ([facility] actice, ) ECG ROUTINE ECG W/LEAST 12 LDS W/I&R <td>POCT AMB EKG</td><td>Routine</td><td>11/26/2020 3:53 PM EDT</td><td> Bradycardia Preop cardiovascular exam</td><td> </td> 11/26/2020 03:53:00 PM EDT Preop cardiovascular examBradycardia [facility] Preop cardiovascular exam Bradycardia OFFICE OUTPATIENT VISIT 15 MINUTES 11/15/2020 12:00:00 AM EDKendra NOVAK ([facility], ) OFFICE OUTPATIENT VISIT 25 MINUTES 11/15/2020 12:00:00 AM [address] [facility] ([facility], ) Hospital outpatient clinic visit for assessment and ma nagement of a patient Hospital Outpatient Clinic Visit 11/09/2020 12:00:00 AM EDT [facility] OFFICE OUTPATIENT VISIT 25 MINUTES 10/26/2020 12:00:00 AM EDKendra NOVAK ([facility]) OFFICE OUTPATIENT VISIT 15 MINUTES 10/14/2020 12:00:00 AM EDKendra NOVAK ([facility], ) OFFICE OUTPATIENT VISIT 25 MINUTES 10/13/2020 12:00:00 AM EDT [facility] ([facility]) MRI BRAIN BRAIN STEM W/O CONTRAST MATERIAL 07/31/2020 12:00:00 AM EDT [facility] ([facility]) MRI BRAIN BRAIN STEM W/O CONTRAST MATERIAL 07/31/2020 12:00:00 AM EDT [facility] ([facility]) OFFICE OUTPATIENT VISIT 25 MINUTES 07/13/2020 12:00:00 AM EDT [facility] ([facility]) OFFICE OUTPATIENT VISIT 15 MINUTES 06/28/2020 12:00:00 AM EDT [facility] ([facility]) Brief Emotional/Behav Assessment W/ Scoring Doc Per Standard Inst 06/07/2020 12:00:00 AM EDT [facility] ([facility] OFFICE OUTPATIENT VISIT 25 MINUTES 06/07/2020 12:00:00 AM EDT [facility] ([facility] OFFICE OUTPATIENT VISIT 15 MINUTES 05/18/2020 12:00:00 AM EST [facility] ([facility]) REVSC OPN/PRQ FEM/POP W/STNT/ANGIOP SM VSL 05/11/2020 12:00:00 AM EST [facility] ([facility]) REVSC OPN/PRQ TIB/REBECCA W/ANGIOPLASTY UNI 05/11/2020 12 :00:00 AM EST [facility] ([facility]) Moderate Sedation Services; Same Phys Intl 15 Mins; PT >= 5 Years 05/11/2020 12:00:00 AM EST [facility] ([facility]) OFFICE OUTPATIENT VISIT 25 MINUTES 05/03/2020 12:00:00 AM EST [facility] ([facility]) SLCTV CATH 1STORD W/WO ART PUNCT/FLUOR/S&I BILAT 04/13 12:00:00 AM EST [facility] ([facility]) Moderate Sedation Services; Same Phys Intl 15 Mins; PT >= 5 Years 04/13/2020 12:00:00 AM EST [facility] ([facility]) Diabetic Retinal Eye Exam 04/06/2020 12:00:00 AM EST [facility] ([facility] DESTRUCTION PREMALIGNANT LESION 2-14 EA DESTRUCT PREMALG LES 2-14 02/10/2020 12:00:00 AM [facility] DESTRUCTION PREMALIGNANT LESION 1ST DESTRUCT PREMALG LESION 02/10/2020 12:00:00 AM [facility] Results ID Date Data Source [id number] 02/12/2021 10:45:00 AM EST [facility] Name Value Range Interpretation Code Description Data Kierra rce(s) Supporting Document(s) SARS-CoV-2 (COVID-19) RNA [Presence] in Respiratory specimen by TAD with probe detection Not Detected [facility] This lab was ordered by [facility] and reported by [employer] ID Date Data Source [id number] 02/12/2021 10:45:00 AM EST [facility] ([facility]) Name Value Range Interpretation Code Description Data Kierra rce(s) Supporting Document(s) Coronavirus 2019 Nasopharygeal Laboratory test result [facility] ([facility]) ASSAY INFORMATION: Real Time RT-PCR NOTE: The COVID-19 assay has been cleared by the U.S. Food and Drug Administration under the Emergency Use Authorization (EUA). [employer] and [facility] are designated as high complexity laboratories by the Clinical Laboratory Improvement Amendments of 1988(CLIA) and are qualified to perform this test. Not Detected ID Date Data Source [id number] 12/20/2020 11:43:00 AM EDT [facility] ([facility]) Name Value Range Interpretation Code Description Data Kierra rce(s) Supporting Document(s) Hemoglobin A1c/Hemoglobin.total in Blood 6.9 % [facility] ([facility]) Lab Result Notes: Pre-Diabetes 5.7 - 6.4 % Diabetes = or > 6.5% Glucose mean value [Mass/volume] in Blood Estimated fr om glycated hemoglobin 151 mg/dL 60-110 [facility] ([facility] ) ID Date Data Source [id number] 12/20/2020 11:43:00 AM EDT [facility] ([facility]) Name Value Range Interpretation Code Description Data Kierra rce(s) Supporting Document(s) Hemoglobin A1c/Hemoglobin.total in Blood Laboratory test result [facility] ([facility]) ID Date Data Source [id number] 12/14/2020 08:53:00 AM EDT [facility] ([facility]) Name Value Range Interpretation Code Description Data Kierra rce(s) Supporting Document(s) Thyrotropin [Units/volume] in Serum or Plasma by Detec tion limit <= 0.05 mIU/L 2.30 uIU/mL 0.36-3.74 [facility] ([facility] ) ID Date Data Source [id number] 12/14/2020 08:53:00 AM EDT [facility] ([facility]) Name Value Range Interpretation Code Description Data Kierra rce(s) Supporting Document(s) Triglyceride [Mass/volume] in Serum or Plasma 167 mg/dL 30-150 [facility] ([facility]) Cholesterol [Mass/volume] in Serum or Plasma 133 mg/dL 131-200 [facility] ([facility]) Cholesterol in LDL [Mass/volume] in Serum or Plasma by calcu lation 37 CALC 50-159 [facility] ([facility]) Cholesterol in HDL [Mass/volume] in Serum or Plasma 63 mg/dL 35-60 [facility] ([facility]) ID Date Data Source [id number] 12/14/2020 08:53:00 AM EDT [facility] ([facility]) Name Value Range Interpretation Code Description Data Kierra rce(s) Supporting Document(s) Glucose [Mass/volume] in Serum or Plasma 112 mg/dL 74-99 [facility] ([facility]) 100-125 mg/dL PRE-DIABETES/FASTING >126 mg/dL DIABETES/FASTING Urea nitrogen [Mass/volume] in Serum or Plasma 17 mg/dL 7-18 [facility] ([facility]) Creatinine 1.2 mg/dL 0.6-1.3 [facility]) Sodium [Moles/volume] in Serum or Plasma 133 meq/L 136-145 [facility] ([facility]) Potassium [Moles/volume] in Serum or Plasma 4.9 meq/L 3.5-5.1 [facility] ([facility]) Chloride [Moles/volume] in Serum or Plasma 96 meq/L 98-107 [facility] ([facility]) Carbon dioxide, total [Moles/volume] in Serum or Plasma 26 meq/L 21 -32 [facility] ([facility]) Calcium [Mass/volume] in Serum or Plasma 9.7 mg/dL 8.5-10.1 [facility] ([facility]) Aspartate aminotransferase [Enzymatic activity/volume] in Serum or Plasma 14 U/L 15-37 [facility] ([facility] ) Alkaline phosphatase isoenzyme [Units/volume] in Serum or Pl asma 87 mg/dL 46-116 [facility] ([facility]) Total Bilirubin 0.4 mg/dL 0.2-1.0 [facility] ([facility]) Alanine aminotransferase [Enzymatic activity/volume] in Seru m or Plasma 32 U/L 12-78 [facility] ([facility]) Albumin [Mass/volume] in Serum or Plasma 4.0 g/dL 3.4-5.0 [facility] ([facility]) Proteinase 3 Ab [Units/volume] in Serum 7.2 g/dL 6.4-8.2 [facility] ([facility]) A/G Ratio 1.25 CALC 1.00-1.90 [facility] Glomerular filtration rate/1.73 sq M pre dicted among blacks [Volume Rate/Area] in Serum or Plasma by Creatinine-based formula (MDRD) Laboratory test result [facility] ([facility]) <content>CHRONIC KIDNEY DISEASE STAGING PER NKF</content>
<content></content>
<content>STAGE I & II GFR >= 60 NORMAL TO MILDLY DECREASED</content>
<content>STAGE III GFR 30-59 MODERATELY DECREASED</content>
<content>STAGE IV GFR 15-29 SEVERELY DECREASED</content>
<content>STAGE V GFR <15 VERY LITTLE GFR LEFT</content>
<content>ESRD GFR <15 ON JAILER</content>
<content></content> Glomerular filtration rate/1.73 sq M pre dicted among non-blacks [Volume Rate/Area] in Serum or Plasma by Creatinine-based formula (MDRD) 59 mL/min [facility] ([facility]) ID Date Data Source [id number] 12/14/2020 08:53:00 AM EDT [facility] ([facility]) Name Value Range Interpretation Code Description Data Kierra rce(s) Supporting Document(s) Leukocytes [#/volume] in Blood by Automated count 5.6 x10*3/UL 4.1-10 .9 [facility] ([facility]) Hemoglobin [Mass/volume] in Blood 13.2 g/dL 12.0-18.0 [facility] ([facility]) Erythrocytes [#/volume] in Blood by Automated count 4.44 x10*6/UL 4.2 0-6.30 [facility] ([facility]) MCH 29.7 pg 26.0-32.0 [facility]) Hematocrit [Volume Fraction] of Blood by Automated count 38.5 % 3 7.0-51.0 [facility] ([facility]) MCV 86.7 fL 80.0-97.0 [facility]) MCHC 34.2 g/dL 31.0-38.0 [facility] ([facility]) Erythrocyte distribution width [Ratio] by Automated count 13.3 % 11.6-13.7 [facility] ([facility]) Platelets [#/volume] in Blood by Automated count 279 x10*3/UL 140-440 [facility] ([facility]) MPV 7.7 FL 7.8-11.0 [facility]) Neut % 75.5 % 37.0-92.0 [facility]) Lymph % 19.1 % 10.0-58.5 [facility] ([facility]) Mid % 5.4 % 1.7-9.3 [facility]) Lymph # 1.0 x10*3/UL 0.6-4.1 [facility] ([facility]) Mid # 0.4 x10*3/UL 0.1-0.6 [facility] ([facility]) Neut # 4.2 x10*3/UL 2.0-7.8 [facility] ([facility]) ID Date Data Source [id number] 12/07/2020 12:30:00 PM EDT [facility] ([facility]) Name Value Range Interpretation Code Description Data Kierra rce(s) Supporting Document(s) Bedside Glucose 93 mg/dL 83-110 [facility] ([facility]) ID Date Data Source [id number] 12/07/2020 09:23:00 AM EDT [facility] ([facility]) Name Value Range Interpretation Code Description Data Kierra rce(s) Supporting Document(s) Glucose, Fasting 114 mg/dL 70-100 [facility] ([facility]) Glomerular Filtration Rate Laboratory test result [facility] ([facility]) <content>Units are mL/min/1.73 m2</content>
<content></content>
<content>Chronic Kidney Disease Staging per NKF:</content>
<content></content>
<content>Stage I & II GFR >=60 Normal to Mildly Decreased</content>
<content>Stage III GFR 30- 59 Moderately Decreased</content>
<content>Stage IV GFR 15-29 Severely Decreased</content>
<content>Stage V GFR <15 Very Little GFR Left</content>
<content>ESRD GFR <15 on JAILER</content>
<content></content> Blood Urea Nitrogen 21 mg/dL 7-18 [facility] ([facility]) Creatinine For GFR 1.01 mg/dL 0.70-1.30 [facility] ([facility]) Sodium Level 131 meq/L 136-145 [facility] ([facility]) Potassium Serum 4.3 meq/L 3.5-5.1 [facility] ([facility]) Chloride Level 97 meq/L 98-107 [facility] ([facility]) Carbon Dioxide Level 26 meq/L 21-32 [facility] Anion Gap 8 meq/L 8-16 [facility]) Calcium Level 9.5 mg/dL 8.8-10.2 [facility] ([facility]) ID Date Data Source [id number] 12/07/2020 09:23:00 AM EDT [facility] ([facility]) Name Value Range Interpretation Code Description Data Kierra rce(s) Supporting Document(s) Inr 0.94 [facility] THERAPUTIC HUMAN INR VALUES INDICATIONS NORMAL RANGES PROPHYLAXIS/TREATMENT OF: VENOUS THROMBOSIS 2.0-3.0 PULMONARY EMBOLISM 2.0-3.0 PREVENTION OF SYSTEMIC EMBOLISM FROM: TISSUE HEART VALVES 2.0-3.0 ACUTE MYOCARDIAL INFARCTION 2.0-3.0 VALVULAR HEART DISEASE 2.0-3.0 ATRIAL FIBRILLATION 2.0-3.0 MECHANICAL VALVES(HIGH RISK) 2.5-3.5 RECURRENT MYOCARDIAL INFARCTION 2.5-3.5 Prothrombin Time 13.0 s 12.7-14.5 [facility] ([facility]) ID Date Data Source [id number] 12/07/2020 09:23:00 AM EDT [facility] ([facility]) Name Value Range Interpretation Code Description Data Kierra rce(s) Supporting Document(s) White Blood Count 6.7 10 4.0-10.0 [facility] ([facility]) Red Blood Count 4.31 10 4.30-6.10 [facility] ([facility]) Hematocrit 37.8 % 42.0-52.0 [facility]) Hemoglobin 13.0 g/dL 13.5-17.5 [facility] Mean Corpuscular Volume 87.7 fl 80.0-96.0 [facility] ([facility]) Mean Corpuscular HGB Conc 34.4 g/dL 32.0-36.5 [facility] ([facility]) Mean Corpuscular Hemoglobin 30.2 pg 27.0-33.0 ID [facility] ([facility]) Platelet Count, Automated 256 10 150-450 [facility] ([facility]) Red Cell Distribution Width 12.9 % 11.5-14.5 ID [facility] ([facility]) Nucleated Red Blood Cell % 0.0 % 0-0 MED [facility] ([facility]) ID Date Data Source [id number] 12/07/2020 09:23:00 AM EDT [facility] ([facility]) Name Value Range Interpretation Code Description Data Kierra rce(s) Supporting Document(s) Blood Urea Nitrogen 21 mg/dL 7-18 Above high normal [facility] ([facility]) Glucose, Fasting 114 mg/dL 70-100 Above high normal [facility] Creatinine For GFR 1.01 mg/dL 0.70-1.30 Normal (applies to non -numeric results) [facility] ([facility]) Sodium Level 131 meq/L 136-145 Below low normal [facility] ([facility]) Glomerular Filtration Rate Laboratory test result Normal (applies to non- numeric results) [facility]) <content>Units are mL/min/1.73 m2</content>
<content></content>
<content>Chronic Kidney Disease Staging per NKF:</content>
<content></content>
<content>Stage I & II GFR >=60 Normal to Mildly Decreased</content>
<content>Stage III GFR 30- 59 Moderately Decreased</content>
<content>Stage IV GFR 15-29 Severely Decreased</content>
<content>Stage V GFR <15 Very Little GFR Left</content>
<content>ESRD GFR <15 on JAILER</content>
<content></content> Chloride Level 97 meq/L 98-107 Below low normal [facility] ([facility]) Potassium Serum 4.3 meq/L 3.5-5.1 Normal (applies to non-numeric results) [facility] ([facility]) Calcium Level 9.5 mg/dL 8.8-10.2 Normal (applies to non-numeric re sults) [facility] ([facility]) Anion Gap 8 meq/L 8-16 Normal (applies to non-numeric resul ts) [facility]) Carbon Dioxide Level 26 meq/L 21-32 Normal (applies to non-num mitch results) [facility]) ID Date Data Source [id number] 12/07/2020 09:23:00 AM EDT [facility]) Name Value Range Interpretation Code Description Data Kierra rce(s) Supporting Document(s) Inr 0.94 Normal (applies to non-numeric resul ts) [facility]) THERAPUTIC HUMAN INR VALUES INDICATIONS NORMAL RANGES PROPHYLAXIS/TREATMENT OF: VENOUS THROMBOSIS 2.0-3.0 PULMONARY EMBOLISM 2.0-3.0 PREVENTION OF SYSTEMIC EMBOLISM FROM: TISSUE HEART VALVES 2.0-3.0 ACUTE MYOCARDIAL INFARCTION 2.0-3.0 VALVULAR HEART DISEASE 2.0-3.0 ATRIAL FIBRILLATION 2.0-3.0 MECHANICAL VALVES(HIGH RISK) 2.5-3.5 RECURRENT MYOCARDIAL INFARCTION 2.5-3.5 Prothrombin Time 13.0 s 12.7-14.5 Normal (applies to non-numeric results) [facility]) ID Date Data Source [id number] 12/07/2020 09:23:00 AM EDT [facility]) Name Value Range Interpretation Code Description Data Kierra rce(s) Supporting Document(s) White Blood Count 6.7 10 4.0-10.0 Normal (applies to non-numeri c results) [facility]) Hemoglobin 13.0 g/dL 13.5-17.5 Below low normal [facility]) Red Blood Count 4.31 10 4.30-6.10 Normal (applies to non-numeric results) [facility]) Mean Corpuscular Hemoglobin 30.2 pg 27.0-33.0 Norm al (applies to non-numeric results) [facility]) Mean Corpuscular Volume 87.7 fl 80.0-96.0 Normal ( applies to non-numeric results) [facility]) Hematocrit 37.8 % 42.0-52.0 Below low normal [facility]) Red Cell Distribution Width 12.9 % 11.5-14.5 Norm al (applies to non-numeric results) [facility]) Mean Corpuscular HGB Conc 34.4 g/dL 32.0-36.5 Normal (applies to non-numeric results) [facility] ([facility]) Platelet Count, Automated 256 10 150-450 Normal (applies to non-numeric results) [facility] ([facility]) Nucleated Red Blood Cell % 0.0 % 0-0 Normal (applies to n on-numeric results) [facility] ([facility]) ID Date Data Source [id number] 12/07/2020 09:16:00 AM EDT [facility] ([facility]) Name Value Range Interpretation Code Description Data Kierra rce(s) Supporting Document(s) Bedside Glucose 100 mg/dL 83-[address] [facility] ([facility]) ID Date Data Source [id number] [facility]2020 [facility] Name Value Range Interpretation Code Description Data Kierra rce(s) Supporting Document(s) Gastrointestinal (GI) Panel Laboratory test result [facility] ([facility]) This Gastrointestinal PCR Panel detects the following bacteria, parasites and viruses: [...] infection. NEGATIVE by MULTIPLEXED NUCLEIC ACID PCR ID Date Data Source [id number] 10/26/2020 03:32:00 PM ED[address] [facility] ([facility]) Name Value Range Interpretation Code Description Data Kierra rce(s) Supporting Document(s) Glucose [Mass/volume] in Serum or Plasma 158 mg/dL 74-[address] [facility] ([facility]) 100-125 mg/dL PRE-DIABETES/FASTING >126 mg/dL DIABETES/FASTING Urea nitrogen [Mass/volume] in Serum or Plasma 26 mg/dL 7-18 [facility] ([facility]) Sodium [Moles/volume] in Serum or Plasma 137 meq/L 136-145 [facility] ([facility]) Creatinine 1.4 mg/dL 0.6-1.3 [facility] ([facility]) Chloride [Moles/volume] in Serum or Plasma 102 meq/L 98-107 [facility] ([facility]) Potassium [Moles/volume] in Serum or Plasma 4.6 meq/L 3.5-5.1 [facility] ([facility]) Carbon dioxide, total [Moles/volume] in Serum or Plasma 24 meq/L 21 -32 [facility] ([facility]) Calcium [Mass/volume] in Serum or Plasma 9.2 mg/dL 8.5-10.1 [facility] ([facility]) Alkaline phosphatase isoenzyme [Units/volume] in Serum or Pl asma 77 mg/dL 46-116 [facility] ([facility]) Total Bilirubin 0.4 mg/dL 0.2-1.0 [facility] ([facility]) Alanine aminotransferase [Enzymatic activity/volume] in Seru m or Plasma 31 U/L 12-78 [facility] ([facility]) Albumin [Mass/volume] in Serum or Plasma 3.6 g/dL 3.4-5.0 [facility] ([facility]) Aspartate aminotransferase [Enzymatic activity/volume] in Serum or Plasma 14 U/L 15-37 [facility] ([facility] ) Proteinase 3 Ab [Units/volume] in Serum 6.8 g/dL 6.4-8.2 [facility] ([facility]) Glomerular filtration rate/1.73 sq M pre dicted among non-blacks [Volume Rate/Area] in Serum or Plasma by Creatinine-based formula (MDRD) 49 mL/min [facility] ([facility]) A/G Ratio 1.13 CALC 1.00-1.90 [facility]) Glomerular filtration rate/1.73 sq M pre dicted among blacks [Volume Rate/Area] in Serum or Plasma by Creatinine-based formula (MDRD) 60 mL/min [facility] ([facility]) <content>CHRONIC KIDNEY DISEASE STAGING PER NKF</content>
<content></content>
<content>STAGE I & II GFR >= 60 NORMAL TO MILDLY DECREASED</content>
<content>STAGE III GFR 30-59 MODERATELY DECREASED</content>
<content>STAGE IV GFR 15-29 SEVERELY DECREASED</content>
<content>STAGE V GFR <15 VERY LITTLE GFR LEFT</content>
<content>ESRD GFR <15 ON JAILER</content>
<content></content> ID Date Data Source [id number] 10/26/2020 03:32:00 PM EDT [facility] ([facility]) Name Value Range Interpretation Code Description Data Kierra rce(s) Supporting Document(s) Magnesium 1.8 mg/dL 1.8-2.4 [facility]) ID Date Data Source [id number] 10/26/2020 03:32:00 PM EDT [facility] ([facility]) Name Value Range Interpretation Code Description Data Kierra rce(s) Supporting Document(s) Erythrocytes [#/volume] in Blood by Automated count 4.00 x10*6/UL 4.2 0-6.30 [facility] ([facility]) Leukocytes [#/volume] in Blood by Automated count 6.0 x10*3/UL 4.1-10 .9 [facility] ([facility]) Hematocrit [Volume Fraction] of Blood by Automated count 34.4 % 3 7.0-51.0 [facility] ([facility]) Hemoglobin [Mass/volume] in Blood 11.9 g/dL 12.0-18.0 [facility] ([facility]) MCV 85.8 fL 80.0-97.0 [facility]) MCHC 34.7 g/dL 31.0-38.0 [facility]) MCH 29.8 pg 26.0-32.0 [facility] ([facility]) Erythrocyte distribution width [Ratio] by Automated count 13.8 % 11.6-13.7 [facility] ([facility]) Platelets [#/volume] in Blood by Automated count 235 x10*3/UL 140-440 [facility] ([facility]) Mid % 7.8 % 1.7-9.3 [facility] MPV 8.2 FL 7.8-11.0 [facility] Lymph % 25.6 % 10.0-58.5 [facility] Neut % 66.6 % 37.0-92.0 [facility] ([facility]) Lymph # 1.5 x10*3/UL 0.6-4.1 [facility] ([facility]) Mid # 0.6 x10*3/UL 0.1-0.6 [facility] ([facility]) Neut # 3.9 x10*3/UL 2.0-7.8 [facility] ([facility]) ID Date Data Source [id number] 10/13/2020 01:17:00 PM EDT [facility] ([facility]) Name Value Range Interpretation Code Description Data Kierra rce(s) Supporting Document(s) Vitamin B12 Level 758 pg/mL [facility] ([facility]) VITAMIN B12 NORMAL RANGE NORMAL 247 - 911 PG/ML INDETERMINATE 211 - 246 PG/ML DEFICIENT LESS THAN 211 PG/ML Folate Laboratory test result [facility] ([facility]) FOLATE NORMAL RANGE NORMAL GREATER THAN 5.4 NG/ML INDETERMINATE 3.4-5.4 NG/ML DEFICIENT LESS THAN 3.4 NG/ML ID Date Data Source [id number] 10/13/2020 01:17:00 PM EDT [facility] ([facility] ) Name Value Range Interpretation Code Description Data Kierra rce(s) Supporting Document(s) Vitamin B12 Level 758 pg/mL [facility] ([facility] ) VITAMIN B12 NORMAL RANGE NORMAL 247 - 911 PG/ML INDETERMINATE 211 - 246 PG/ML DEFICIENT LESS THAN 211 PG/ML Folate Laboratory test result [facility] ([facility]) FOLATE NORMAL RANGE NORMAL GREATER THAN 5.4 NG/ML INDETERMINATE 3.4-5.4 NG/ML DEFICIENT LESS THAN 3.4 NG/ML ID Date Data Source [id number] 07/14/2020 10:58:00 AM EDT [facility] ([facility]) Name Value Range Interpretation Code Description Data Kierra rce(s) Supporting Document(s) Glucose, Fasting 74 mg/dL 70-100 [facility] ([facility]) Creatinine For GFR 0.98 mg/dL 0.70-1.30 [facility] ([facility]) Blood Urea Nitrogen 34 mg/dL 7-18 [facility] ([facility]) Glomerular Filtration Rate Laboratory test result [facility] ([facility]) <content>Units are mL/min/1.73 m2</content>
<content></content>
<content>Chronic Kidney Disease Staging per NKF:</content>
<content></content>
<content>Stage I & II GFR >=60 Normal to Mildly Decreased</content>
<content>Stage III GFR 30- 59 Moderately Decreased</content>
<content>Stage IV GFR 15-29 Severely Decreased</content>
<content>Stage V GFR <15 Very Little GFR Left</content>
<content>ESRD GFR <15 on JAILER</content>
<content></content> Sodium Level 134 meq/L 136-145 [facility] ([facility]) Potassium Serum 5.4 meq/L 3.5-5.1 [facility] ([facility]) Testing was performed on a SLIGHTLY hemo lyzed specimen. Suggest recollection of specimen for more accurate test results. Chloride Level 102 meq/L 98-107 [facility] ([facility]) Carbon Dioxide Level 27 meq/L 21-32 [facility] Anion Gap 5 meq/L 8-16 [facility] Calcium Level 10.4 mg/dL 8.8-10.2 [facility] ([facility]) ID Date Data Source [id number] 07/14/2020 10:58:00 AM EDT [facility] ([facility]) Name Value Range Interpretation Code Description Data Kierra rce(s) Supporting Document(s) Red Blood Count 4.61 10 4.30-6.10 [facility] ([facility]) White Blood Count 6.9 10 4.0-10.0 [facility] ([facility]) Hematocrit 39.1 % 42.0-52.0 [facility] ([facility]) Hemoglobin 12.7 g/dL 13.5-17.5 [facility] ([facility]) Mean Corpuscular Hemoglobin 27.5 pg 27.0-33.0 ID [facility] ([facility]) Mean Corpuscular Volume 84.8 fl 80.0-96.0 MEDENT ([facility]) Mean Corpuscular HGB Conc 32.5 g/dL 32.0-36.5 MEDE NT ([facility]) Red Cell Distribution Width 14.6 % 11.5-14.5 ID DENT ([facility]) Platelet Count, Automated 267 10 150-450 MEDE NT ([facility]) Nucleated Red Blood Cell % 0.0 % 0-0 MED ENT ([facility]) ID Date Data Source [id number] 05/31/2020 08:48:00 AM EDT [facility] ([facility]) Name Value Range Interpretation Code Description Data Kierra rce(s) Supporting Document(s) Microalbumin Urine 267.2 mg/L 1.3-20.0 [facility] ([facility]) Urine Creatinine 62.8 mg/dL 30.0-125.0 [facility] ([facility]) Microalb/Creat Ratio 425.5 ug/mg 0.0-30.0 [facility] ([facility]) ID Date Data Source [id number] 05/31/2020 08:48:00 AM EDT [facility] ([facility]) Name Value Range Interpretation Code Description Data Kierra rce(s) Supporting Document(s) Cholesterol [Mass/volume] in Serum or Plasma 127 mg/dL 131-200 [facility] ([facility]) Triglyceride [Mass/volume] in Serum or Plasma 74 mg/dL 30-150 [facility] ([facility]) Cholesterol in LDL [Mass/volume] in Serum or Plasma by calcu lation 46 CALC 50-159 [facility] ([facility]) Cholesterol in HDL [Mass/volume] in Serum or Plasma 66 mg/dL 35-60 [facility] ([facility]) ID Date Data Source [id number] 05/31/2020 08:48:00 AM EDT [facility] ([facility]) Name Value Range Interpretation Code Description Data Kierra rce(s) Supporting Document(s) Glucose [Mass/volume] in Serum or Plasma 65 mg/dL 74-99 [facility] ([facility]) 100-125 mg/dL PRE-DIABETES/FASTING >126 mg/dL DIABETES/FASTING Urea nitrogen [Mass/volume] in Serum or Plasma 20 mg/dL 7-18 [facility] ([facility]) Creatinine 1.0 mg/dL 0.6-1.3 [facility] ([facility]) Potassium [Moles/volume] in Serum or Plasma 4.3 meq/L 3.5-5.1 MED[facility] ([facility]) Sodium [Moles/volume] in Serum or Plasma 136 meq/L 136-145 [facility] ([facility]) Chloride [Moles/volume] in Serum or Plasma 99 meq/L 98-107 [facility] ([facility]) Carbon dioxide, total [Moles/volume] in Serum or Plasma 28 meq/L 21 -32 [facility] ([facility]) Calcium [Mass/volume] in Serum or Plasma 9.1 mg/dL 8.5-10.1 [facility] ([facility]) Alkaline phosphatase isoenzyme [Units/volume] in Serum or Pl asma 93 mg/dL 46-116 [facility] ([facility]) Total Bilirubin 0.3 mg/dL 0.2-1.0 [facility] ([facility]) Aspartate aminotransferase [Enzymatic activity/volume] in Serum or Plasma 19 U/L 15-37 [facility] ([facility] ) Alanine aminotransferase [Enzymatic activity/volume] in Seru m or Plasma 30 U/L 12-78 [facility] ([facility]) Proteinase 3 Ab [Units/volume] in Serum 7.0 g/dL 6.4-8.[address] [facility] ([facility]) Albumin [Mass/volume] in Serum or Plasma 3.9 g/dL 3.4-5.[address] [facility] ([facility]) A/G Ratio 1.26 CALC 1.00-1.[address] [facility] Glomerular filtration rate/1.73 sq M pre dicted among non-blacks [Volume Rate/Area] in Serum or Plasma by Creatinine-based formula (MDRD) Laboratory test result [facility] Glomerular filtration rate/1.73 sq M pre dicted among blacks [Volume Rate/Area] in Serum or Plasma by Creatinine-based formula (MDRD) Laboratory test result [facility] ([facility] <content>CHRONIC KIDNEY DISEASE STAGING PER NKF</content>
<content></content>
<content>STAGE I & II GFR >= 60 NORMAL TO MILDLY DECREASED</content>
<content>STAGE III GFR 30-59 MODERATELY DECREASED</content>
<content>STAGE IV GFR 15-29 SEVERELY DECREASED</content>
<content>STAGE V GFR <15 VERY LITTLE GFR LEFT</content>
<content>ESRD GFR <15 ON JAILER</content>
<content></content> ID Date Data Source [id number] 05/31/2020 08:48:00 AM EDT [facility] Name Value Range Interpretation Code Description Data Kierra rce(s) Supporting Document(s) Hemoglobin A1c/Hemoglobin.total in Blood 6.8 % [facility] ([facility]) Lab Result Notes: Pre-Diabetes 5.7 - 6.4 % Diabetes = or > 6.5% Glucose mean value [Mass/volume] in Blood Estimated fr om glycated hemoglobin 148 mg/dL 60-[address] [facility] ([facility] ID Date Data Source [id number] 05/31/2020 08:48:00 AM EDT [facility] Name Value Range Interpretation Code Description Data Kierra rce(s) Supporting Document(s) Leukocytes [#/volume] in Blood by Automated count 6.0 x10*3/UL 4.1-10 .9 [facility] ([facility]) Erythrocytes [#/volume] in Blood by Automated count 4.15 x10*6/UL 4.2 0-6.30 [facility] Hemoglobin [Mass/volume] in Blood 11.5 g/dL 12.0-18.0 [facility] ([facility] NOTE: RESULT VERIFIED. Hematocrit [Volume Fraction] of Blood by Automated count 33.8 % 3 7.0-51.0 [facility] ([facility] MCV 81.3 fL 80.0-97.0 [facility] MCH 27.8 pg 26.0-32.0 [facility] ([facility]) MCHC 34.2 g/dL 31.0-38.0 [facility] ([facility]) Platelets [#/volume] in Blood by Automated count 252 x10*3/UL 140-440 [facility] Erythrocyte distribution width [Ratio] by Automated count 14.0 % 11.6-13.7 [facility] ([facility]) Lymph % 21.7 % 10.0-58.5 [facility] MPV 9.1 FL 7.8-11.0 [facility] ([facility]) Mid % 7.0 % 1.7-9.3 [facility] ([facility]) Lymph # 1.3 x10*3/UL 0.6-4.1 [facility] ([facility]) Neut % 71.3 % 37.0-92.0 [facility] Neut # 4.3 x10*3/UL 2.0-7.8 [facility] ([facility]) Mid # 0.4 x10*3/UL 0.1-0.6 [facility] ([facility]) ID Date Data Source [id number] 05/31/2020 08:48:00 AM EDT [facility] Name Value Range Interpretation Code Description Data Kierra rce(s) Supporting Document(s) Hemoglobin A1c/Hemoglobin.total in Blood Laboratory test result [facility] ([facility]) ID Date Data Source [id number] 05/11/2020 11:49:00 AM EST [facility] ([facility]) Name Value Range Interpretation Code Description Data Kierra rce(s) Supporting Document(s) Bedside Glucose 68 mg/dL 83-110 [facility] ([facility]) ID Date Data Source [id number] 05/11/2020 11:49:00 AM EST MED[facility] ([facility]) Name Value Range Interpretation Code Description Data Kierra rce(s) Supporting Document(s) Glucose [Mass/volume] in Capillary blood by Glucometer 68 mg/dL 83-110 Below low normal [facility] ([facility]) ID Date Data Source [id number] 05/11/2020 08:40:00 AM EST [facility] ([facility]) Name Value Range Interpretation Code Description Data Kierra rce(s) Supporting Document(s) Bedside Glucose 82 mg/dL 83-110 [facility] ([facility]) ID Date Data Source [id number] 05/11/2020 08:40:00 AM EST MED[facility] ([facility]) Name Value Range Interpretation Code Description Data Kierra rce(s) Supporting Document(s) Glucose [Mass/volume] in Capillary blood by Glucometer 82 mg/dL 83-110 Below low normal [facility] ([facility]) ID Date Data Source [id number] 04/13/2020 10:10:00 AM EST [facility] ([facility]) Name Value Range Interpretation Code Description Data Kierra rce(s) Supporting Document(s) Glucose [Mass/volume] in Capillary blood by Glucometer 131 mg/dL 83-110 Above high normal [facility] ([facility]) ID Date Data Source [id number] 04/13/2020 10:10:00 AM EST [facility] ([facility]) Name Value Range Interpretation Code Description Data Kierra rce(s) Supporting Document(s) Bedside Glucose 131 mg/dL 83-110 [facility] ([facility]) ID Date Data Source [id number] 04/13/2020 08:45:00 AM EST MED[facility] ([facility]) Name Value Range Interpretation Code Description Data Kierra rce(s) Supporting Document(s) Blood Urea Nitrogen 20 mg/dL 7-18 Above high normal [facility] ([facility]) Glucose, Fasting 65 mg/dL 70-100 Below low normal ME DENT ([facility]) Creatinine For GFR 1.10 mg/dL 0.70-1.30 Normal (applies to non -numeric results) [facility] ([facility]) Glomerular Filtration Rate Laboratory test result Normal (applies to non- numeric results) [facility] ([facility]) <content>Units are mL/min/1.73 m2</content>
<content></content>
<content>Chronic Kidney Disease Staging per NKF:</content>
<content></content>
<content>Stage I & II GFR >=60 Normal to Mildly Decreased</content>
<content>Stage III GFR 30- 59 Moderately Decreased</content>
<content>Stage IV GFR 15-29 Severely Decreased</content>
<content>Stage V GFR <15 Very Little GFR Left</content>
<content>ESRD GFR <15 on JAILER</content>
<content></content> Sodium Level 133 meq/L 136-145 Below low normal [facility] ([facility]) Carbon Dioxide Level 28 meq/L 21-32 Normal (applies to non-num mitch results) [facility] ([facility]) Potassium Serum 4.1 meq/L 3.5-5.1 Normal (applies to non-numeric results) [facility] ([facility]) Chloride Level 97 meq/L 98-107 Below low normal MEDE NT ([facility]) Calcium Level 9.5 mg/dL 8.8-10.2 Normal (applies to non-numeric re sults) [facility] ([facility]) Anion Gap 8 meq/L 8-16 Normal (applies to non-numeric resul ts) [facility]) ID Date Data Source [id number] 04/13/2020 08:45:00 AM EST MED[facility] ([facility]) Name Value Range Interpretation Code Description Data Kierra rce(s) Supporting Document(s) Hemoglobin 11.7 g/dL 13.5-17.5 Below low normal [facility] ( [facility]) Red Blood Count 4.28 10 4.30-6.10 Below low normal MED ENT ([facility]) White Blood Count 5.6 10 4.0-10.0 Normal (applies to non-numeri c results) [facility] ([facility]) Hematocrit 35.7 % 42.0-52.0 Below low normal [facility] ( [facility]) Mean Corpuscular Volume 83.4 fl 80.0-96.0 Normal ( applies to non-numeric results) [facility] ([facility]) Mean Corpuscular Hemoglobin 27.3 pg 27.0-33.0 Norm al (applies to non-numeric results) [facility] ([facility]) Red Cell Distribution Width 14.0 % 11.5-14.5 Norm al (applies to non-numeric results) [facility] ([facility]) Mean Corpuscular HGB Conc 32.8 g/dL 32.0-36.5 Normal (applies to non-numeric results) [facility] ([facility]) Nucleated Red Blood Cell % 0.0 % 0-0 Normal (applies to n on-numeric results) [facility] ([facility]) Platelet Count, Automated 242 10 150-450 Normal (applies to non-numeric results) [facility] ([facility]) ID Date Data Source [id number] 04/13/2020 08:45:00 AM EST [facility] Name Value Range Interpretation Code Description Data Kierra rce(s) Supporting Document(s) Glucose, Fasting 65 mg/dL 70-100 [facility] Glomerular Filtration Rate Laboratory test result [facility] <content>Units are mL/min/1.73 m2</content>
<content></content>
<content>Chronic Kidney Disease Staging per NKF:</content>
<content></content>
<content>Stage I & II GFR >=60 Normal to Mildly Decreased</content>
<content>Stage III GFR 30- 59 Moderately Decreased</content>
<content>Stage IV GFR 15-29 Severely Decreased</content>
<content>Stage V GFR <15 Very Little GFR Left</content>
<content>ESRD GFR <15 on JAILER</content>
<content></content> Creatinine For GFR 1.10 mg/dL 0.70-1.30 [facility] ([facility]) Blood Urea Nitrogen 20 mg/dL 7-18 [facility] ([facility]) Sodium Level 133 meq/L 136-145 [facility] ([facility]) Chloride Level 97 meq/L 98-107 [facility] ([facility]) Potassium Serum 4.1 meq/L 3.5-5.1 [facility] ([facility]) Calcium Level 9.5 mg/dL 8.8-10.2 [facility] ([facility]) Anion Gap 8 meq/L 8-16 [facility] Carbon Dioxide Level 28 meq/L 21-32 [facility] ([facility]) ID Date Data Source [id number] 04/13/2020 08:45:00 AM EST [facility] ([facility]) Name Value Range Interpretation Code Description Data Kierra rce(s) Supporting Document(s) White Blood Count 5.6 10 4.0-10.0 [facility] ([facility]) Red Blood Count 4.28 10 4.30-6.10 [facility] Mean Corpuscular Volume 83.4 fl 80.0-96.0 [facility] ([facility]) Hemoglobin 11.7 g/dL 13.5-17.5 [facility] Hematocrit 35.7 % 42.0-52.0 [facility] Mean Corpuscular HGB Conc 32.8 g/dL 32.0-36.5 MEDE NT ([facility]) Mean Corpuscular Hemoglobin 27.3 pg 27.0-33.0 ME DENT ([facility]) Platelet Count, Automated 242 10 150-450 MEDE NT ([facility]) Red Cell Distribution Width 14.0 % 11.5-14.5 ME DENT ([facility]) Nucleated Red Blood Cell % 0.0 % 0-0 MED ENT ([facility]) Procedure Social History Code Duration Value Status Description Data Source(s ) Alcohol intake 11/26/2020 12:00:00 AM EDT Ex-drinker (finding) comp leted Ex- drinker (finding) [facility] Smoking 06/28/2020 12:00:00 AM EDT Non Smoker completed Non Smoke r [facility] ([facility], ) Alcohol intake 03/17/2020 12:00:00 AM EST Not Currently completed [facility] Smoking 03/17/2020 12:00:00 AM EST Never smoker completed Never [facility] Tobacco use and exposure 12/24/2019 12:00:00 AM EDT Never used co mpleted Never used [facility] Smoking 12/24/2019 12:00:00 AM EDT Never smoker completed Never s [facility] Alcohol intake 12/24/2019 12:00:00 AM EDT Not Currently completed [facility] Smoking 12/24/2019 12:00:00 AM EDT Never smoker completed Never s [facility] Vital Signs ID Date Data Source UNK Name Value Range Interpretation Code Description Data Source(s) Systolic blood pressure 116 mm[Hg] 116 mm[Hg] M EDENT ([facility], ) Diastolic blood pressure 60 mm[Hg] 60 mm[Hg] [facility] ([facility], ) Heart rate 56 /min 56 /min [facility] ([facility], ) Respiratory rate 16 /min 16 /min MED[facility] ( [facility], ) Systolic blood pressure 140 mm[Hg] 140 mm[Hg] M EDENT ([facility], ) Diastolic blood pressure 60 mm[Hg] 60 mm[Hg] [facility] ([facility], ) Heart rate 59 /min 59 /min MED[facility] ([facility]) Oxygen saturation in Arterial blood by Pulse oximetry 98 % 98 % [facility] ([facility]) Body height 65 [in_i] 65 [in_i] [facility] ([facility]) 5'5" Body weight 211.00 [lb_av] 211.00 [lb_av] MEDEN T ([facility]) Body mass index (BMI) [Ratio] 35.1 kg/m2 35.1 k g/m2 [facility] ([facility]) [place] body weight 136 [lb_av] 136 [lb_av] MEDEN T ([facility]) Body weight 95.710 kg 95.[address] [facility] ([facility]) Body surface area Derived from formula 2.02 m2 2.[address] [facility] ([facility]) Body surface area Derived from formula 2.01 m2 2.[address] [facility] ([facility]) Body weight 94.349 kg 94.[address] [facility] ([facility]) Systolic blood pressure 160 mm[Hg] 160 mm[Hg] [facility] Diastolic blood pressure 71 mm[Hg] 71 mm[Hg] [facility] ([facility]) Body temperature 98.4 [degF] 98.4 [degF] [facility] ([facility]) Body height 65 [in_i] 65 [in_i] [facility] ([facility]) 5'5" Body weight 208.00 [lb_av] 208.00 [lb_av] MEDEN T ([facility]) Body mass index (BMI) [Ratio] 34.6 kg/m2 34.6 k g/m2 [facility] ([facility]) [place] body weight 136 [lb_av] 136 [lb_av] MEDEN T ([facility]) Systolic blood pressure 121 mm[Hg] 121 mm[Hg] M EDENT ([facility]) Diastolic blood pressure 52 mm[Hg] 52 mm[Hg] [facility] ([facility]) Heart rate 58 /min 58 /min [facility] ([facility]) Body height 64 [in_i] 64 [in_i] [facility] ([facility]) 5'4" Body weight 207.00 [lb_av] 207.00 [lb_av] MEDEN T ([facility]) Body mass index (BMI) [Ratio] 35.5 kg/m2 35.5 k g/m2 [facility] ([facility]) Systolic blood pressure 130 mm[Hg] 130 mm[Hg] [facility] Diastolic blood pressure 68 mm[Hg] 68 mm[Hg] [facility] Heart rate 68 /min 68 /min [facility] Body height 165.1 cm 165.1 cm [facility] Body weight 95.255 kg 95.255 kg [facility] Body mass index (BMI) [Ratio] 34.95 kg/m2 34.95 kg/m2 [facility] Oxygen saturation in Arterial blood by Pulse oximetry 98 % 98 % [facility] Body temperature 98.3 [degF] 98.3 [degF] [facility] ([facility], ) Systolic blood pressure 160 mm[Hg] 160 mm[Hg] [facility] ([facility], ) [place] body weight 136 [lb_av] 136 [lb_av] [facility] Body weight 93.895 kg 93.[address] [facility] ([facility], ) Body surface area Derived from formula 2.01 m2 2.[address] [facility] ([facility], ) Diastolic blood pressure 70 mm[Hg] 70 mm[Hg] [facility] ([facility], ) Body height 65 [in_i] 65 [in_i] [facility] ([facility], ) 5'5" Body weight 207.00 [lb_av] 207.00 [lb_av] MEDEN T ([facility], ) Body mass index (BMI) [Ratio] 34.4 kg/m2 34.4 k g/m2 [facility] ([facility], ) Systolic blood pressure 160 mm[Hg] 160 mm[Hg] [facility] Body weight 93.895 kg 93.[address] [facility] ([facility]) Body mass index (BMI) [Ratio] 34.4 kg/m2 34.4 k g/m2 [facility] ([facility]) Diastolic blood pressure 70 mm[Hg] 70 mm[Hg] [facility] ([facility]) Body temperature 98.3 [degF] 98.3 [degF] [facility] ([facility]) Body height 65 [in_i] 65 [in_i] [facility] ([facility]) 5'5" Body weight 207.00 [lb_av] 207.00 [lb_av] MEDEN T ([facility]) [place] body weight 136 [lb_av] 136 [lb_av] MEDEN T ([facility]) Body surface area Derived from formula 2.01 m2 2.[address] [facility] ([facility]) Body weight 209.00 [lb_av] 209.00 [lb_av] MEDEN T ([facility]) Body mass index (BMI) [Ratio] 35.9 kg/m2 35.9 k g/m2 [facility] ([facility]) Systolic blood pressure 140 mm[Hg] 140 mm[Hg] [facility] Diastolic blood pressure 60 mm[Hg] 60 mm[Hg] [facility] ([facility]) Heart rate 70 /min 70 /min [facility] ([facility]) Body height 64 [in_i] 64 [in_i] MED[facility] ([facility]) 5'4" Body weight 194 [lb_av] 194 [lb_av] eCW1 ([facility]) Body weight 88 kg 88 kg eCW1 ([facility]) Body height 66 [in_i] 66 [in_i] eCW1 ([facility]) Body mass index (BMI) [Ratio] 31.31 kg/m2 31.31 kg/m2 eCW1 ([facility]) Heart rate 54 /min 54 /min eCW1 ([facility]) Respiratory rate 17 /min 17 /min eCW1 ([facility]) Body temperature 97.8 [degF] 97.8 [degF] eCW1 ( [facility]) Systolic blood pressure 124 mm[Hg] 124 mm[Hg] e CW1 ([facility]) Diastolic blood pressure 68 mm[Hg] 68 mm[Hg] eCW1 ([facility]) Body weight 94.122 kg 94.122 kg [facility] Body surface area Derived from formula 2.01 m2 2.01 m2 [facility]) Systolic blood pressure 107 mm[Hg] 107 mm[Hg] M EDENT ([facility]) Diastolic blood pressure 66 mm[Hg] 66 mm[Hg] [facility] ([facility]) Body temperature 98.2 [degF] 98.2 [degF] [facility] Body height 65 [in_i] 65 [in_i] [facility] ([facility]) 5'5" Body weight 207.50 [lb_av] 207.50 [lb_av] MEDEN T ([facility]) Body mass index (BMI) [Ratio] 34.5 kg/m2 34.5 k g/m2 [facility] ([facility]) [place] body weight 136 [lb_av] 136 [lb_av] MEDEN T ([facility]) Systolic blood pressure 122 mm[Hg] 122 mm[Hg] M EDENT ([facility], ) Diastolic blood pressure 70 mm[Hg] 70 mm[Hg] MEDENT ([facility]) Heart rate 60 /min 60 /min [facility] Respiratory rate 16 /min 16 /min MEDENT ( [facility]) Respiratory rate 18 /min 18 /min eCW1 ([facility]) Body weight 194 [lb_av] 194 [lb_av] eCW1 ([facility]) Body height 66 [in_i] 66 [in_i] eCW1 ([facility]) Body mass index (BMI) [Ratio] 31.31 kg/m2 31.31 kg/m2 eCW1 ([facility]) Heart rate 54 /min 54 /min eCW1 ([facility]) Body temperature 97.0 [degF] 97.0 [degF] eCW1 ( [facility]) Systolic blood pressure 128 mm[Hg] 128 mm[Hg] e CW1 ([facility]) Diastolic blood pressure 70 mm[Hg] 70 mm[Hg] eCW1 ([facility]) Systolic blood pressure 120 mm[Hg] 120 mm[Hg] M EDENT ([facility], ) Diastolic blood pressure 60 mm[Hg] 60 mm[Hg] MEDENT ([facility]) Heart rate 60 /min 60 /min MED[facility] ([facility]) Respiratory rate 20 /min 20 /min MEDENT ( [facility]) Body height 65 [in_i] 65 [in_i] [facility] 5'5" Body mass index (BMI) [Ratio] 34.7 kg/m2 34.7 k g/m2 [facility] ([facility]) [place] body weight 136 [lb_av] 136 [lb_av] MEDEN T ([facility]) Body weight 94.519 kg 94.[address] [facility] ([facility]) Body surface area Derived from formula 2.01 m2 2.[address] [facility] ([facility]) Body weight 208.38 [lb_av] 208.38 [lb_av] MEDEN T ([facility]) Systolic blood pressure 145 mm[Hg] 145 mm[Hg] M EDENT ([facility]) Diastolic blood pressure 77 mm[Hg] 77 mm[Hg] MED[facility] ([facility]) Body height 65 [in_i] 65 [in_i] [facility] 5'5" Body weight 208.38 [lb_av] 208.38 [lb_av] MEDEN T ([facility]) Body mass index (BMI) [Ratio] 34.7 kg/m2 34.7 k g/m2 [facility] ([facility]) [place] body weight 136 [lb_av] 136 [lb_av] [facility] ([facility]) Body weight 94.519 kg 94.[address] [facility] ([facility]) Body surface area Derived from formula 2.01 m2 2.[address] [facility] ([facility]) Systolic blood pressure 128 mm[Hg] 128 mm[Hg] [facility]) Diastolic blood pressure 66 mm[Hg] 66 mm[Hg] [facility] ([facility]) Body height 64 [in_i] 64 [in_i] [facility] ([facility]) 5'4" Body weight 213.12 [lb_av] 213.12 [lb_av] [facility] ([facility]) Body mass index (BMI) [Ratio] 36.6 kg/m2 36.6 k g/m2 [facility] ([facility]) Body weight 94.802 kg 94.[address] [facility] ([facility]) Body surface area Derived from formula 2.02 m2 2.[address] [facility] ([facility]) Body weight 209.00 [lb_av] 209.00 [lb_av] [facility] Body mass index (BMI) [Ratio] 34.8 kg/m2 34.8 k g/m2 [facility] ([facility]) [place] body weight 136 [lb_av] 136 [lb_av] [facility] ([facility]) Systolic blood pressure 138 mm[Hg] 138 mm[Hg] [facility] ([facility]) Diastolic blood pressure 70 mm[Hg] 70 mm[Hg] [facility] ([facility]) Body height 65 [in_i] 65 [in_i] [facility] ([facility]) 5'5" Body surface area Derived from formula 2.02 m2 2.[address] [facility] ([facility]) Systolic blood pressure 138 mm[Hg] 138 mm[Hg] [facility] ([facility]) Diastolic blood pressure 70 mm[Hg] 70 mm[Hg] [facility] ([facility]) Body height 65 [in_i] 65 [in_i] [facility] ([facility]) 5'5" Body weight 209.50 [lb_av] 209.50 [lb_av] [facility] ([facility]) Body mass index (BMI) [Ratio] 34.9 kg/m2 34.9 k g/m2 [facility] ([facility]) [place] body weight 136 [lb_av] 136 [lb_av] [facility] ([facility]) Body weight 95.029 kg 95.[address] [facility] ([facility]) Systolic blood pressure 130 mm[Hg] 130 mm[Hg] [facility] ([facility]) Diastolic blood pressure 60 mm[Hg] 60 mm[Hg] [facility] Body height 65 [in_i] 65 [in_i] [facility] ([facility]) 5'5" Body weight 210.00 [lb_av] 210.00 [lb_av] [facility] ([facility]) Body mass index (BMI) [Ratio] 34.9 kg/m2 34.9 k g/m2 [facility] ([facility]) [place] body weight 136 [lb_av] 136 [lb_av] [facility] ([facility]) Body weight 95.256 kg 95.[address] [facility] ([facility]) Body surface area Derived from formula 2.02 m2 2.[address] [facility] ([facility]) Systolic blood pressure 150 mm[Hg] 150 mm[Hg] [facility] Diastolic blood pressure 58 mm[Hg] 58 mm[Hg] [facility] Heart rate 61 /min 61 /min [facility] Body height 165.1 cm 165.1 cm [facility] Body weight 96.616 kg 96.616 kg [facility] Body mass index (BMI) [Ratio] 35.45 kg/m2 35.45 kg/m2 [facility] Oxygen saturation in Arterial blood by Pulse oximetry 96 % 96 % [facility] Systolic blood pressure 138 mm[Hg] 138 mm[Hg] [facility] Diastolic blood pressure 73 mm[Hg] 73 mm[Hg] [facility] Heart rate 70 /min 70 /min [facility] Body height 165.1 cm 165.1 cm [facility] Body weight 90.266 kg 90.266 kg [facility] Body mass index (BMI) [Ratio] 33.12 kg/m2 33.12 kg/m2 [facility] Systolic blood pressure 146 mm[Hg] 146 mm[Hg] [facility] Diastolic blood pressure 80 mm[Hg] 80 mm[Hg] [facility] ([facility]) Heart rate 56 /min 56 /min [facility] ([facility]) Oxygen saturation in Arterial blood by Pulse oximetry 98 % 98 % [facility] ([facility]) Body temperature 97.2 [degF] 97.2 [degF] [facility] ([facility], ) Body height 65 [in_i] 65 [in_i] [facility] ([facility]) 5'5" Body weight 204.12 [lb_av] 204.12 [lb_av] [facility] ([facility]) Body mass index (BMI) [Ratio] 34.0 kg/m2 34.0 k g/m2 [facility] ([facility]) [place] body weight 136 [lb_av] 136 [lb_av] [facility] ([facility]) Body weight 92.591 kg 92.[address] [facility] ([facility]) Body surface area Derived from formula 2.00 m2 2.[address] [facility] ([facility]) Patient Treatment Plan of Care Planned Activity Planned Date Details Description Data Source (s) Chlorthalidone 25 MG Oral Tablet 11/11/2020 12:00:00 AM EDT [facility] Oxybutynin chloride 5 MG Oral Tablet 09/09/2020 12:00:00 AM EDT [facility]1 ([facility]) Oxybutynin chloride 5 MG Oral Tablet 09/09/2020 12:00:00 AM EDT eCW1 ([facility]) Doxazosin 4 MG Oral Tablet 07/14/2020 12:00:00 AM EDT [facility] Spironolactone 25 MG Oral Tablet 06/16/2020 12:00:00 AM EDT [facility] Nystatin 278189 UNT/ML / Triamcinolone Acetonide 1 MG/ ML Topical Cream 06/07/2020 12:00:00 AM EDT [facility] Doxazosin 4 MG Oral Tablet 03/17/2020 12:00:00 AM EST [facility] Triamcinolone Acetonide 1 MG/ML Topical Cream 02/20/2020 12:00:00 A M EST [facility] Ketoconazole 20 MG/ML Medicated Shampoo 02/20/2020 12:00:00 AM EST [facility] Fluorouracil 50 MG/ML Topical Cream 02/20/2020 12:00:00 AM EST [facility] Doxazosin 2 MG Oral Tablet 02/05/2020 12:00:00 AM EST [facility] Chlorthalidone 25 MG Oral Tablet 01/28/2020 12:00:00 AM EST [facility] latanoprost 0.05 MG/ML Ophthalmic Solution 01/24/2020 12:00:00 AM E [facility] Doxazosin 1 MG Oral Tablet 01/14/2020 12:00:00 AM EDT [facility] Insulin Glargine 100 UNT/ML Injectable Solution [Lantu s] 09/22/2019 12:00:00 AM EDT [facility] Latanoprost (XALATAN OP) 01/18/2012 12:00:00 AM EDT [facility]
--- NOTE | 2021-02-17 10:42 | ROOR ---
Patient Name: Venu Phillips Procedure Date: 02/17/2021 10:04 AM Date of : 1945 Age: 75 Room: [facility] Gender: Male Note Status: Finalized Procedure: Colonoscopy Indications: Clinically significant diarrhea of unexplained origin Providers: Bakari Valles Jr, MD Referring MD: Alonzo Jeffers MD Requesting Provider: Medicines: Propofol per Anesthesia Complications: No immediate complications. Procedure: Pre-Anesthesia Assessment: - Prior to the procedure, a History and Physical was performed, and patient medications and allergies were reviewed. The patient is competent. The risks and benefits of the procedure and the sedation options and risks were discussed with the patient. All questions were answered and informed consent was obtained. Patient identification and proposed procedure were verified by the physician and the nurse in the pre-procedure area and in the procedure room. Mental Status Examination: alert and oriented. Airway Examination: normal oropharyngeal airway and neck mobility. Respiratory Examination: clear to auscultation. CV Examination: normal. ASA Grade Assessment: II - A patient with mild systemic disease. After reviewing the risks and benefits, the patient was deemed in satisfactory condition to undergo the procedure. The anesthesia plan was to use moderate sedation / analgesia (conscious sedation). Immediately prior to administration of medications, the patient was re-assessed for adequacy to receive sedatives. The heart rate, respiratory rate, oxygen saturations, blood pressure, adequacy of pulmonary ventilation, and response to care were monitored throughout the procedure. The physical status of the patient was re-assessed after the procedure. The Colonoscope was introduced through the anus and advanced to the cecum, identified by appendiceal orifice and ileocecal valve. The colonoscopy was performed without difficulty. The patient tolerated the procedure well. The quality of the bowel preparation was adequate. Findings: The descending colon, transverse colon, cecum, appendiceal orifice and ileocecal valve appeared normal. Four polyps were found in the recto-sigmoid colon, descending colon and ascending colon. The polyps were small in size. These polyps were removed with a hot snare. Resection and retrieval were complete. Impression: - The descending colon, transverse colon, cecum, appendiceal orifice and ileocecal valve are normal. - Four small polyps at the recto-sigmoid colon, in the descending colon and in the ascending colon, removed with a hot snare. Resected and retrieved. Recommendation: - Discharge patient to home (ambulatory). - Repeat colonoscopy in 5-10 years for surveillance. Procedure Code(s): --- Professional --- 66730, Colonoscopy, flexible; with removal of tumor(s), polyp(s), or other lesion(s) by snare technique Diagnosis Code(s): --- Professional --- K63.5, Polyp of colon R19.7, Diarrhea, unspecified CPT copyright 2019 [employer]. All rights reserved. The codes documented in this report are preliminary and upon systems engineer review may be revised to meet current compliance requirements. Bakari Valles MD Bakari Valles Jr, MD 02/17/2021 10:42:05 AM Electronically signed by Bakari Valles Jr, MD Number of Addenda: 0 Note Initiated On: 02/17/2021 10:04 AM Estimated Blood Loss: Estimated blood loss: none.
[2021-02-17 10:54] VITALS: BP 182/74
== END 2021-02-17 11:00 | disposition home or self-care (01) ==
LOC: M OPP 09:20
PROVIDERS: ATTEND Surgery
DX: K63.5 Polyp of colon (principal); R19.7 Diarrhea, unspecified; Z79.4 Long term (current) use of insulin; Z79.82 Long term (current) use of aspirin; Z79.899 Other long term (current) drug therapy

== ENCOUNTER → 2021-10-24 | Outpatient (CLI) | payer MEDICARE ==
[~2021-10-24] MED LIST changes: +BUPR-71; -BUPR150T5; -LIDOCAINE 2% 100MG/5ML SDV (FOR ANES.) As Ordered ONE; -NS 1,000 ML IV ONE; -propofoL 200 MG/20 ML VIAL As Ordered ONE
== END ==
LOC: M PLALAB 10:07
PROVIDERS: ATTEND Physician Assistant
DX: R97.20 Elevated prostate specific antigen [PSA] (principal)

== ENCOUNTER → 2022-09-15 | Outpatient (CLI) | payer MEDICARE ==
[2022-09-15 13:38] LABS: BLOOD UREA NITROGEN 28 MG/DL (9-23); CREATININE FOR GFR 1.23 MG/DL (0.70-1.30); GLOMERULAR FILTRATION RATE > 60.0 (>42)
== END ==
LOC: M LAB 10:20
PROVIDERS: ATTEND Psychiatry & Neurology Neurology
DX: I10 Essential (primary) hypertension (principal)

== ENCOUNTER → 2022-10-27 | Outpatient (CLI) | payer MEDICARE ==
[~2022-10-27] MED LIST changes: -ROPI0.5T3 PO; +ROPI0.5T33 PO
== END ==
LOC: M PLALAB 15:20
PROVIDERS: ATTEND Physician Assistant
DX: R97.20 Elevated prostate specific antigen [PSA] (principal)

== ENCOUNTER → 2022-11-06 | Outpatient (CLI) | payer MEDICARE | LOC: M RAD 10:00 | PROVIDERS: ATTEND Surgery Vascular Surgery | DX: I70.213 Atherosclerosis of native arteries of extremities with intermittent claudication, bilateral legs (principal); I25.810 Atherosclerosis of coronary artery bypass graft(s) without angina pectoris ==

== ENCOUNTER → 2023-10-23 | Outpatient (CLI) | payer MEDICARE, MEDICAID ==
[~2023-10-23] MED LIST changes: +INSU100V19 SC; -INSURSD SC; +IRBE300T25 PO; -IRBE300T7 PO; -OXYB5TAB10 PO; +OXYB5TAB14 PO
== END ==
LOC: M PLALAB 14:42
PROVIDERS: ATTEND Physician Assistant
DX: R97.20 Elevated prostate specific antigen [PSA] (principal)

== ENCOUNTER → 2024-01-11 | Outpatient (REF) | payer MEDICARE, MEDICAID ==
[2024-01-11 15:39] LABS: APPEARANCE, URINE CLEAR (CLEAR); BACTERIA, URINE AUTO NEGATIVE (NEGATIVE); BILIRUBIN, URINE AUTO NEGATIVE (NEGATIVE); BLOOD, URINE BLOOD NEGATIVE (NEGATIVE); COLOR, URINE YELLOW (YELLOW); GLUCOSE, URINE (UA) AUTO NEGATIVE (NEGATIVE); KETONE, URINE AUTO NEGATIVE (NEGATIVE); LEUKOCYTE ESTERASE, URINE AUTO NEGATIVE (NEGATIVE); NITRITE, URINE AUTO NEGATIVE (NEGATIVE); PROTEIN, URINE AUTO 1+ mg/dL (NEGATIVE); RBC, URINE AUTO 1 /HPF (0-3); SPECIFIC GRAVITY URINE AUTO 1.015 (1.002-1.035); SQUAMOUS EPITHELIAL CELL UR AU 0 /HPF (0-6); UROBILINOGEN, URINE AUTO 0.2 mg/dL (0.0-2.0); WBC, URINE AUTO 1 /HPF (0-3)
== END ==
LOC: M SMT 15:04
PROVIDERS: ATTEND Physician Assistant
DX: N39.41 Urge incontinence (principal)

== ENCOUNTER → 2024-01-23 | Outpatient (REF) | payer MEDICARE, MEDICAID | LOC: M SMT 15:14 | PROVIDERS: ATTEND Urology | DX: R39.15 Urgency of urination (principal) ==

== ENCOUNTER → 2024-02-08 | Outpatient (REF) | payer MEDICARE, MEDICAID ==
[2024-02-08 18:48] LABS: IRON (FE) 37 UG/DL (65-175); PERCENT SATURATION 13.2 % (19.7-50.0); TOTAL IRON BINDING CAPACITY 280 UG/DL (250-425)
[2024-02-08 18:49] LABS: FERRITIN 31.3 NG/ML (10.5-307.3)
[2024-02-08 18:50] LABS: FOLATE > 24.0 NG/ML (>5.4)
[2024-02-08 18:51] LABS: VITAMIN B12 LEVEL 844 PG/ML (211-911)
== END ==
LOC: M LAB REF 16:34
PROVIDERS: ATTEND Family Medicine
DX: D64.9 Anemia, unspecified (principal)

== ENCOUNTER → 2024-03-25 | Outpatient (REF) | payer MEDICARE, MEDICAID | LOC: M SMT 12:55 → EEVIPCON 12:55 | PROVIDERS: ATTEND Urology | DX: R39.15 Urgency of urination (principal) ==

== ENCOUNTER → 2024-10-31 | Outpatient (CLI) | payer MEDICARE, MEDICAID | LOC: M PLALAB 12:41 | PROVIDERS: ATTEND Physician Assistant | DX: R97.20 Elevated prostate specific antigen [PSA] (principal) ==

== ENCOUNTER → 2024-11-03 | Outpatient (CLI) | payer MEDICARE, MEDICAID | LOC: M PLALAB 10:34 | PROVIDERS: ATTEND Physician Assistant | DX: R97.20 Elevated prostate specific antigen [PSA] (principal) ==

== ENCOUNTER → 2025-02-03 | Outpatient (REF) | payer MEDICARE, MEDICAID ==
[2025-02-06 16:42] LABS: PSA % FREE 23.0 % (calc) (>25); PSA FREE 1.0 ng/mL; PSA TOTAL 4.4 ng/mL (< OR = 4.0)
== END ==
LOC: M SMT 16:53
PROVIDERS: ATTEND Physician Assistant
DX: R97.20 Elevated prostate specific antigen [PSA] (principal)